=== PATIENT | male | born 1975 | race Caucasian/White ===

== ENCOUNTER 2017-01-10 22:00 | Emergency (ER) | payer MEDICARE, MEDICAID ==
[~2017-01-10] VITALS: Ht 167.6 cm; Wt 110.2 kg
[~2017-01-10 22:00] MED LIST: LIPI10TA; PRIL20CA
[2017-01-10] MEDS ORDERED: GLUCTAB6 PO (22:14)
[2017-01-10] MEDS ORDERED: TOPA25TA10 PO (22:14)
[2017-01-10] MEDS ORDERED: CHLO125TA PO (22:14)
[2017-01-10] MEDS ORDERED: LISI10TA4 PO (22:14)
[2017-01-10] MEDS ORDERED: POTA1TAB14 PO (22:14)
[2017-01-10] MEDS ORDERED: ASPI81TA13 PO (22:14)
[2017-01-10] MEDS ORDERED: DEXI60CA PO (22:14)
[2017-01-10] MEDS ORDERED: CALC600T21 PO (22:14)
[2017-01-10] MEDS ORDERED: RANI150T PO (22:14)
[2017-01-10] MEDS ORDERED: LIPI20TA PO (22:14)
[2017-01-10] MEDS ORDERED: SPIR25TA2 PO (22:14)
[2017-01-10] MEDS ORDERED: VITA2000 PO (22:14)
[2017-01-10] MEDS ORDERED: MORPHINE 4 MG/ML 1ML SYRINGE IV ONE (23:45)
[2017-01-11 01:03] LABS: BASO % 0.4 % (0.0-1.0); EOS # 0.2 K/mm3 (0.0-0.50); EOS % 1.5 % (0.0-3.0); LARGE UNSTAINED CELL # 0.2 K/mm3 (0.0-0.4); LARGE UNSTAINED CELL % 1.5 % (0.0-4.0); LYMPH # 2.2 K/mm3 (1.5-4.5); LYMPH % 18.5 % (24.0-44.0); MEAN CORPUSCULAR HEMOGLOBIN 29.9 pg (27.0-33.0); MEAN CORPUSCULAR HGB CONC 35.4 g/dl (32.0-36.5); MEAN CORPUSCULAR VOLUME 84.4 fl (80.0-96.0); MONO # 0.7 K/mm3 (0.0-0.8); NEUTROPHILS # 8.4 K/mm3 (1.8-7.7); NEUTROPHILS % 72.2 % (36.0-66.0); PLATELET COUNT, AUTOMATED 216 k/mm3 (150-450); WHITE BLOOD COUNT 11.7 K/mm3 (4.0-10.0)
[2017-01-11 01:27] LABS: ANION GAP 9 MEQ/L (8-16); BLOOD UREA NITROGEN 15 MG/DL (7-18); CALCIUM LEVEL 8.5 MG/DL (8.5-10.1); CARBON DIOXIDE LEVEL 26 MEQ/L (21-32); CHLORIDE LEVEL 101 MEQ/L (98-107); CREATININE FOR GFR 0.95 MG/DL (0.70-1.30); GLOMERULAR FILTRATION RATE > 60.0 (>60); GLUCOSE, FASTING 138 MG/DL (70-105); POTASSIUM SERUM 3.5 MEQ/L (3.5-5.1); SODIUM LEVEL 136 MEQ/L (136-145)
[2017-01-11] MEDS ORDERED: PERC5TAB6 PO (02:00)
[2017-01-11 02:16] VITALS: BP 119/59
--- NOTE | 2017-01-11 09:20 | REP ---
Back pain. COMPARISON: 03/12/2015 FINDINGS: Five views of the lumbosacral spine show no acute fracture, dislocation or subluxation. The intervertebral disc spaces are symmetric and well maintained. There is no spondylolisthesis. The pedicles are intact bilaterally and there is no destructive osseous lesions. IMPRESSION: Unremarkable lumbosacral spine series. Signed by Saqib Foster DO 01/11/2017 09:26 A
== END 2017-01-11 02:20 | disposition home or self-care (01) ==
LOC: M ED 23:15
DX: M54.5 Low back pain (principal); I10 Essential (primary) hypertension; Z79.899 Other long term (current) drug therapy; Z79.82 Long term (current) use of aspirin; Z88.0 Allergy status to penicillin; Z91.018 Allergy to other foods

== ENCOUNTER → 2017-02-13 | Outpatient (CLI) | payer MEDICARE, MEDICAID ==
[~2017-02-13] MED LIST changes: +ASPI81TA13 PO; +CALC600T21 PO; +CHLO125TA PO; +DEXI60CA PO; +GLUCTAB6 PO; +LIPI20TA PO; +LISI10TA4 PO; +PERC5TAB6 PO; +POTA1TAB14 PO; +RANI150T PO; +SPIR25TA2 PO; +TOPA25TA10 PO; +VITA2000 PO
[2017-02-13 06:39] LABS: MEAN CORPUSCULAR HEMOGLOBIN 30.7 pg (27.0-33.0); MEAN CORPUSCULAR HGB CONC 34.7 g/dl (32.0-36.5); MEAN CORPUSCULAR VOLUME 88.6 fl (80.0-96.0); WHITE BLOOD COUNT 7.2 K/mm3 (4.0-10.0)
[2017-02-13 07:03] LABS: ALBUMIN 3.9 GM/DL (3.2-5.2); ALBUMIN/GLOBULIN RATIO 1.26 (1.00-1.93); ALKALINE PHOSPHATASE 107 U/L (45-117); ALT/SGPT 114 U/L (12-78); ANION GAP 7 MEQ/L (8-16); AST/SGOT 41 U/L (15-37); BILIRUBIN,TOTAL 1.1 MG/DL (0.2-1.0); BLOOD UREA NITROGEN 12 MG/DL (7-18); CALCIUM LEVEL 8.4 MG/DL (8.5-10.1); CARBON DIOXIDE LEVEL 29 MEQ/L (21-32); CHLORIDE LEVEL 106 MEQ/L (98-107); CHOLESTEROL LEVEL 150 MG/DL (<200); CREATININE FOR GFR 1.14 MG/DL (0.70-1.30); GLOMERULAR FILTRATION RATE > 60.0 (>60); GLUCOSE, FASTING 106 MG/DL (70-105); POTASSIUM SERUM 3.7 MEQ/L (3.5-5.1); SODIUM LEVEL 142 MEQ/L (136-145); TRIGLYCERIDES LEVEL 165 MG/DL (<150)
== END ==
LOC: M LAB 06:20
PROVIDERS: ATTEND Physician Assistant
DX: I10 Essential (primary) hypertension (principal); E78.2 Mixed hyperlipidemia; S39.012D Strain of muscle, fascia and tendon of lower back, subsequent encounter; X58.XXXD Exposure to other specified factors, subsequent encounter; Y92.89 Other specified places as the place of occurrence of the external cause; Y93.89 Activity, other specified; Y99.8 Other external cause status

== ENCOUNTER → 2017-03-30 | Outpatient (CLI) | payer MEDICARE, MEDICAID ==
[~2017-03-30] MED LIST changes: -ASPI81TA13 PO; +ASPI81TA24 PO; -CALC600T21 PO; +CALC600T60 PO; +CALCTAB68 PO; +CIPR500T3 PO; -DEXI60CA PO; +DEXI60CA2 PO; +FLOM5CAP PO; +NAPR500T3 PO; +PERC5TAB12 PO; -PERC5TAB6 PO; +PROB1TAB PO; +PYRI1TAB5 PO; +SULF1TAB23 PO; +TOPA1TAB PO; -TOPA25TA10 PO; +VOLT1GEL15 TOP; +ZANTTAB PO
--- NOTE | 2017-03-30 13:38 | REP ---
Clinical: Right hip pain. Technique: Neutral and frog lateral views of the right hip. Comparison: 10/29/2007. Findings: Mild degenerative changes include minimal joint space narrowing, increased sclerosis to the acetabular roof with subtle marginal spurring. No acute fracture dislocation. Impression: Mild degenerative changes cannot be excluded. Signed by Pedrito Martinez MD 03/30/2017 01:29 P
== END ==
LOC: M RAD 13:08
PROVIDERS: ATTEND Family Medicine
DX: M25.551 Pain in right hip (principal)
CPT/HCPCS: 73502; G0463

== ENCOUNTER → 2017-04-13 | Outpatient (REF) | payer MEDICARE, MEDICAID | LOC: M SFHCADAM 12:38 | PROVIDERS: ATTEND Physician Assistant Medical | DX: R31.0 Gross hematuria (principal) | CPT/HCPCS: 81001; 81002; 87086; G0463 ==

== ENCOUNTER 2017-04-21 13:33 | Inpatient (IN) | payer MEDICARE, MEDICAID ==
[~2017-04-21] VITALS: Ht 167.6 cm; Wt 111.8 kg
[~2017-04-21 13:33] MED LIST changes: -CALCTAB68 PO; -CIPR500T3 PO; -FLOM5CAP PO; -NAPR500T3 PO; -PROB1TAB PO; -PYRI1TAB5 PO; -SULF1TAB23 PO; -VOLT1GEL15 TOP; -ZANTTAB PO
[2017-04-21 15:24] LABS: BASO % 0.5 % (0.0-1.0); EOS # 0.2 K/mm3 (0.0-0.50); EOS % 1.8 % (0.0-3.0); LARGE UNSTAINED CELL # 0.2 K/mm3 (0.0-0.4); LARGE UNSTAINED CELL % 1.8 % (0.0-4.0); LYMPH # 2.7 K/mm3 (1.5-4.5); MEAN CORPUSCULAR HEMOGLOBIN 30.2 pg (27.0-33.0); MEAN CORPUSCULAR HGB CONC 35.4 g/dl (32.0-36.5); MEAN CORPUSCULAR VOLUME 85.4 fl (80.0-96.0); MONO # 0.7 K/mm3 (0.0-0.8); MONO % 8.4 % (0.0-5.0); NEUTROPHILS # 4.8 K/mm3 (1.8-7.7); NEUTROPHILS % 57.4 % (36.0-66.0); PLATELET COUNT, AUTOMATED 216 k/mm3 (150-450); WHITE BLOOD COUNT 8.4 K/mm3 (4.0-10.0)
[2017-04-21 15:44] LABS: AMYLASE 31 U/L (25-115)
[2017-04-21 15:45] VITALS: BP 160/87
[2017-04-21 15:52] LABS: ALBUMIN 4.2 GM/DL (3.2-5.2); ALKALINE PHOSPHATASE 112 U/L (45-117); ALT/SGPT 110 U/L (12-78); ANION GAP 7 MEQ/L (8-16); AST/SGOT 45 U/L (15-37); BILIRUBIN,TOTAL 1.2 MG/DL (0.2-1.0); BLOOD UREA NITROGEN 10 MG/DL (7-18); CALCIUM LEVEL 9.1 MG/DL (8.5-10.1); CARBON DIOXIDE LEVEL 26 MEQ/L (21-32); CHLORIDE LEVEL 100 MEQ/L (98-107); CREATININE FOR GFR 0.86 MG/DL (0.70-1.30); GLOMERULAR FILTRATION RATE > 60.0 (>60); GLUCOSE, FASTING 89 MG/DL (70-105); POTASSIUM SERUM 3.4 MEQ/L (3.5-5.1); SODIUM LEVEL 133 MEQ/L (136-145)
[2017-04-21] MEDS ORDERED: NAPR500T3 PO (16:05)
[2017-04-21] MEDS ORDERED: CALCTAB68 PO (16:05)
[2017-04-21] MEDS ORDERED: CIPR500T3 PO (16:05)
[2017-04-21] MEDS ORDERED: GLUCTAB6 PO (16:05)
[2017-04-21] MEDS ORDERED: VOLT1GEL15 TOP (16:05)
[2017-04-21] MEDS ORDERED: FLOM5CAP PO (16:05)
[2017-04-21] MEDS ORDERED: PROB1TAB PO (16:05)
[2017-04-21] MEDS: KCL 20MEQ in NS 1000ML 1,000 ML IV SCH ×3 (17:34→23:50)
[2017-04-21] MEDS: LACTOBACILLUS ACIDOPHILUS CAP (BACID) PO SCH (17:34)
[2017-04-21] MEDS: CIPROFLOXACIN 400 MG in APPROPRIATE DILUENT 1 EA IV SCH (17:34)
[2017-04-21] MEDS: NORCO, ANEXSIA 5/325MG TABLET (HYDROcodone/ACETAMINOPHEN) PO PRN (19:05)
[2017-04-21 20:00] VITALS: BP 133/61
[2017-04-21] MEDS: TAMSULOSIN 0.4 MG CAP PO SCH (22:25)
[2017-04-21] MEDS: TOPIRAMATE (TopAMAX) 25 MG TAB PO SCH (22:25)
[2017-04-21] MEDS: POTASSIUM CHLORIDE 10 MEQ SR TABLET PO SCH (22:25)
[2017-04-22] VITALS: BP 123/61
[2017-04-22 04:00] VITALS: BP 123/58
[2017-04-22] MEDS: CIPROFLOXACIN 400 MG in APPROPRIATE DILUENT 1 EA IV SCH ×2 (06:00→17:28)
[2017-04-22] MEDS: KCL 20MEQ in NS 1000ML 1,000 ML IV SCH ×3 (06:00→20:43)
[2017-04-22 06:52] LABS: BASO % 0.3 % (0.0-1.0); EOS # 0.2 K/mm3 (0.0-0.50); EOS % 2.7 % (0.0-3.0); LARGE UNSTAINED CELL # 0.1 K/mm3 (0.0-0.4); LARGE UNSTAINED CELL % 2.1 % (0.0-4.0); LYMPH # 2.3 K/mm3 (1.5-4.5); LYMPH % 36.2 % (24.0-44.0); MEAN CORPUSCULAR HGB CONC 34.5 g/dl (32.0-36.5); MEAN CORPUSCULAR VOLUME 86.9 fl (80.0-96.0); MONO # 0.5 K/mm3 (0.0-0.8); MONO % 7.8 % (0.0-5.0); NEUTROPHILS # 3.1 K/mm3 (1.8-7.7); NEUTROPHILS % 50.9 % (36.0-66.0); PLATELET COUNT, AUTOMATED 186 k/mm3 (150-450); RED CELL DISTRIBUTION WIDTH 13.1 % (11.5-14.5)
[2017-04-22 07:04] LABS: ANION GAP 7 MEQ/L (8-16); BLOOD UREA NITROGEN 13 MG/DL (7-18); CALCIUM LEVEL 8.2 MG/DL (8.5-10.1); CARBON DIOXIDE LEVEL 25 MEQ/L (21-32); CHLORIDE LEVEL 105 MEQ/L (98-107); CREATININE FOR GFR 0.93 MG/DL (0.70-1.30); GLOMERULAR FILTRATION RATE > 60.0 (>60); GLUCOSE, FASTING 112 MG/DL (70-105); POTASSIUM SERUM 3.6 MEQ/L (3.5-5.1); SODIUM LEVEL 137 MEQ/L (136-145)
[2017-04-22 08:00] VITALS: BP 138/65
[2017-04-22] MEDS: TOPIRAMATE (TopAMAX) 25 MG TAB PO SCH ×2 (08:32→21:31)
[2017-04-22] MEDS: PANTOPRAZOLE 40MG TAB (PROTONIX) PO SCH (08:32)
[2017-04-22] MEDS: POTASSIUM CHLORIDE 10 MEQ SR TABLET PO SCH ×2 (08:32→21:31)
[2017-04-22] MEDS: LACTOBACILLUS ACIDOPHILUS CAP (BACID) PO SCH ×3 (08:32→17:28)
[2017-04-22] MEDS: ENOXAPARIN 40 MG/0.4 ML SYRINGE (J1650) SC SCH (08:35)
--- NOTE | 2017-04-22 09:05 | REP ---
CT ABDOMEN AND PELVIS WITHOUT IV CONTRAST: CT abdomen and pelvis is performed without oral or IV contrast. Sagittal and coronal reconstruction images are performed. In the visualized lung bases, there is a tiny calcific granuloma both on the right and on the left. There is diffuse fatty infiltration of the liver with no other gross hepatic abnormality. The spleen is normal in size with no definite abnormality. There is a small hiatal hernia. The adrenals, pancreas and kidneys are grossly unremarkable. There is no renal or ureteral calculus and no hydroureteronephrosis. There is no abdominal aortic aneurysm. There is no adenopathy. There is no free air or free fluid. There is no bowel wall thickening. No pelvic mass is seen. The urinary bladder appears unremarkable. IMPRESSION: Small hiatal hernia. Diffuse fatty infiltration of the liver. Calcified granuloma seen in each lung base. No acute abnormalities are seen. Signed by Obinna Wren MD 04/23/2017 05:48 P
--- NOTE | 2017-04-22 10:20 | IPNPDOC ---
Subjective Date Seen The patient was seen on 04/22/17. Subjective Chief Complaint/HPI The patient is a 41-year-old male admitted with a reason for visit of Acute Prostatitis, Failed Outpatient Treatment. Events since last encounter Reports pressure in suprapubic area. No f/c, n/v Constitutional: Denies: Chills, Fever Pulmonary: Denies: Dyspnea, Cough Cardiovascular: Denies: Chest Pain, Palpitations Gastrointestinal: Reports: Abdominal Pain (suprpubic pressure), Constipation ( NO BM x 2 days), Denies: Nausea, Vomiting, Diarrhea Genitourinary: Reports: Dysuria Objective Physical Examination General Exam: Positive: Alert, No Acute Distress Chest Exam: Positive: Clear to auscultation, Normal air movement Heart Exam: Positive: Rate Normal, Regular Rhythm, Negative: Murmurs Abdomen Exam: Positive: Normal bowel sounds, Soft, Tenderness (slight tenderenss suprapubic region without guard or rebound) Male Exam: Negative: Edema Assessment /Plan Problems (1) Acute prostatitis Status: Acute Response to Treatment: Stable Problem Text: Continue IV Cipro. PVR bladder scan ordered Cont. IVF Continue Flomax Add bowel care as well. Plan/VTE VTE Prophylaxis Ordered?: Yes (Lovenox) VS, I&O, 24H, Fishbone Vital Signs/I&O Vital Signs Date Time Temp Pulse Resp B/P (MAP) Pulse Ox O2 Delivery O2 Flow Rate FiO2 04/22/17 08:00 98.7 84 18 138/65 (89) 95 Room Air I&O- Last 24 Hours up to 6 AM 04/22/17 06:00 Intake Total 1510 ml Output Total 2050 ml Balance -540 ml Laboratory Data 24H LABS Laboratory Tests 2 04/21/17 15:11: White Blood Count 8.4, Red Blood Count 4.99, Hemoglobin 15.1, Hematocrit 42.6, Mean Corpuscular Volume 85.4, Mean Corpuscular Hemoglobin 30.2, Mean Corpuscular Hemoglobin Concent 35.4, Red Cell Distribution Width 13.0, Platelet Count 216, Neutrophils (%) (Auto) 57.4, Lymphocytes (%) (Auto) 30.0, Monocytes ( %) (Auto) 8.4H, Eosinophils (%) (Auto) 1.8, Basophils (%) (Auto) 0.5, Neutrophils # (Auto) 4.8, Lymphocytes # (Auto) 2.7, Monocytes # (Auto) 0.7, Eosinophils # (Auto) 0.2, Basophils # (Auto) 0.0, Large Unclassified Cells % 1.8 , Large Unclassified Cells # 0.2, Anion Gap 7L, Glomerular Filtration Rate > 60.0, Blood Urea Nitrogen 10, Creatinine 0.86, Sodium Level 133L, Potassium Level 3.4L, Chloride Level 100, Carbon Dioxide Level 26, Calcium Level 9.1, Aspartate Amino Transf (AST/SGOT) 45H, Alanine Aminotransferase (ALT/SGPT) 110H , Alkaline Phosphatase 112, Total Bilirubin 1.2H, Total Protein 7.0, Albumin 4.2 , Albumin/Globulin Ratio 1.50, Amylase Level 31, Lipase 100 04/22/17 06:42: White Blood Count 6.0, Red Blood Count 4.54, Hemoglobin 13.6L, Hematocrit 39.5L , Mean Corpuscular Volume 86.9, Mean Corpuscular Hemoglobin 30.0, Mean Corpuscular Hemoglobin Concent 34.5, Red Cell Distribution Width 13.1, Platelet Count 186, Neutrophils (%) (Auto) 50.9, Lymphocytes (%) (Auto) 36.2, Monocytes ( %) (Auto) 7.8H, Eosinophils (%) (Auto) 2.7, Basophils (%) (Auto) 0.3, Neutrophils # (Auto) 3.1, Lymphocytes # (Auto) 2.3, Monocytes # (Auto) 0.5, Eosinophils # (Auto) 0.2, Basophils # (Auto) 0.0, Large Unclassified Cells % 2.1 , Large Unclassified Cells # 0.1, Anion Gap 7L, Glomerular Filtration Rate > 60.0, Blood Urea Nitrogen 13, Creatinine 0.93, Sodium Level 137, Potassium Level 3.6, Chloride Level 105, Carbon Dioxide Level 25, Calcium Level 8.2L CBC/BMP Laboratory Tests 04/21/17 15:11 Red Blood Count 4.99, Mean Corpuscular Volume 85.4, Mean Corpuscular Hemoglobin 30.2, Mean Corpuscular Hemoglobin Concent 35.4, Red Cell Distribution Width 13.0 , Neutrophils (%) (Auto) 57.4, Lymphocytes (%) (Auto) 30.0, Monocytes (%) (Auto ) 8.4 H, Eosinophils (%) (Auto) 1.8, Basophils (%) (Auto) 0.5, Neutrophils # ( Auto) 4.8, Lymphocytes # (Auto) 2.7, Monocytes # (Auto) 0.7, Eosinophils # (Auto ) 0.2, Basophils # (Auto) 0.0, Calcium Level 9.1, Aspartate Amino Transf (AST/ SGOT) 45 H, Alanine Aminotransferase (ALT/SGPT) 110 H, Alkaline Phosphatase 112 , Total Bilirubin 1.2 H, Total Protein 7.0, Albumin 4.2 04/22/17 06:42 Red Blood Count 4.54, Mean Corpuscular Volume 86.9, Mean Corpuscular Hemoglobin 30.0, Mean Corpuscular Hemoglobin Concent 34.5, Red Cell Distribution Width 13.1 , Neutrophils (%) (Auto) 50.9, Lymphocytes (%) (Auto) 36.2, Monocytes (%) (Auto ) 7.8 H, Eosinophils (%) (Auto) 2.7, Basophils (%) (Auto) 0.3, Neutrophils # ( Auto) 3.1, Lymphocytes # (Auto) 2.3, Monocytes # (Auto) 0.5, Eosinophils # (Auto ) 0.2, Basophils # (Auto) 0.0, Calcium Level 8.2 L Microbiology Microbiology 04/21/17 Blood Culture, Received Pending 04/21/17 Blood Culture, Received Pending Attending Note Attending Note Not improved yet. He had been on cipro for a week and a half as outpatient. If not improving by tomorrow suggest abx change. JAMIE CONROY PA-C Apr 22, 2017 10:20 Juan Luis Cornejo MD Apr 22, 2017 13:03
[2017-04-22] MEDS: MOM 30ML SUSPENSION UDC PO SCH (10:45)
[2017-04-22] MEDS: MIRALAX *UNIT DOSE* 17GM PACKET PO SCH (10:46)
[2017-04-22] MEDS: NORCO, ANEXSIA 5/325MG TABLET (HYDROcodone/ACETAMINOPHEN) PO PRN ×2 (10:49→19:01)
[2017-04-22 12:00] VITALS: BP 147/76
[2017-04-22] MEDS: PHENAZOPYRIDINE 100 MG TAB PO SCH ×2 (13:45→21:31)
[2017-04-22 16:00] VITALS: BP 140/79
[2017-04-22 20:00] VITALS: BP 148/79
[2017-04-22] MEDS: TAMSULOSIN 0.4 MG CAP PO SCH (21:31)
[2017-04-23] VITALS (7 sets, daily range): BP systolic 127–162; BP diastolic 63–95
[2017-04-23] MEDS: PHENAZOPYRIDINE 100 MG TAB PO SCH ×3 (06:44→21:53)
[2017-04-23] MEDS: CIPROFLOXACIN 400 MG in APPROPRIATE DILUENT 1 EA IV SCH (06:44)
[2017-04-23 06:45] LABS: BASO % 0.4 % (0.0-1.0); EOS # 0.2 K/mm3 (0.0-0.50); EOS % 2.7 % (0.0-3.0); LARGE UNSTAINED CELL # 0.1 K/mm3 (0.0-0.4); LARGE UNSTAINED CELL % 1.8 % (0.0-4.0); LYMPH # 2.4 K/mm3 (1.5-4.5); LYMPH % 38.6 % (24.0-44.0); MEAN CORPUSCULAR HEMOGLOBIN 30.1 pg (27.0-33.0); MEAN CORPUSCULAR HGB CONC 34.8 g/dl (32.0-36.5); MEAN CORPUSCULAR VOLUME 86.5 fl (80.0-96.0); MONO # 0.4 K/mm3 (0.0-0.8); NEUTROPHILS % 49.4 % (36.0-66.0); PLATELET COUNT, AUTOMATED 165 k/mm3 (150-450); RED CELL DISTRIBUTION WIDTH 13.1 % (11.5-14.5)
[2017-04-23 07:19] LABS: ANION GAP 8 MEQ/L (8-16); BLOOD UREA NITROGEN 10 MG/DL (7-18); CARBON DIOXIDE LEVEL 23 MEQ/L (21-32); CHLORIDE LEVEL 107 MEQ/L (98-107); GLOMERULAR FILTRATION RATE > 60.0 (>60); GLUCOSE, FASTING 103 MG/DL (70-105); POTASSIUM SERUM 3.9 MEQ/L (3.5-5.1); SODIUM LEVEL 138 MEQ/L (136-145)
[2017-04-23] MEDS: LACTOBACILLUS ACIDOPHILUS CAP (BACID) PO SCH ×3 (08:53→17:50)
[2017-04-23] MEDS: PANTOPRAZOLE 40MG TAB (PROTONIX) PO SCH (08:53)
[2017-04-23] MEDS: MIRALAX *UNIT DOSE* 17GM PACKET PO SCH (08:54)
[2017-04-23] MEDS: POTASSIUM CHLORIDE 10 MEQ SR TABLET PO SCH ×2 (08:54→20:13)
[2017-04-23] MEDS: ENOXAPARIN 40 MG/0.4 ML SYRINGE (J1650) SC SCH (08:54)
[2017-04-23] MEDS: TOPIRAMATE (TopAMAX) 25 MG TAB PO SCH ×2 (08:54→20:13)
[2017-04-23] MEDS: MOM 30ML SUSPENSION UDC PO SCH (08:54)
[2017-04-23] MEDS: KCL 20MEQ in NS 1000ML 1,000 ML IV SCH (08:57)
--- NOTE | 2017-04-23 09:21 | IPNPDOC ---
Subjective Date Seen The patient was seen on 04/23/17. Subjective Chief Complaint/HPI The patient is a 41-year-old male admitted with a reason for visit of Acute Prostatitis, Failed Outpatient Treatment. Events since last encounter less dysuria. less suprapubic pressure today. + normal BM yesterday ad today Constitutional: Denies: Chills, Fever Pulmonary: Denies: Dyspnea, Cough Cardiovascular: Denies: Chest Pain, Palpitations Gastrointestinal: Denies: Nausea, Vomiting, Abdominal Pain, Diarrhea, Constipation Genitourinary: Reports: Dysuria (improving) Objective Physical Examination General Exam: Positive: Alert, No Acute Distress Chest Exam: Positive: Clear to auscultation, Normal air movement Heart Exam: Positive: Rate Normal, Regular Rhythm, Negative: Murmurs Abdomen Exam: Positive: Normal bowel sounds, Soft, Negative: Tenderness Male Exam: Negative: Edema Assessment /Plan Problems (1) Acute prostatitis Status: Acute Response to Treatment: Stable Problem Text: symptoms are better with respect to bladder and urethral symptoms , but still with a lot of pain with defecation (compression of prostate) so c/w inadequate response to cipro. needs antibiotic change. will change to flagyl plus meropenem plus po azithromycin. discussed cross reaction risk with patient. Continue IV Cipro. SLow response to this. May want to consider alternative, but has allergy to PCN. (I will try to discuss case with ID today) PVR bladder scan ordered - no PVR yesterday Cont. IVF Continue Flomax Cont. Pyridium Plan/VTE VTE Prophylaxis Ordered?: Yes (Lovenox) Plan Medications: Other Med: VS, I&O, 24H, Fishbone Vital Signs/I&O Vital Signs Date Time Temp Pulse Resp B/P (MAP) Pulse Ox O2 Delivery O2 Flow Rate FiO2 04/23/17 04:00 98.3 69 20 141/76 (97) 98 NIPPV (BIPAP/CPAP) I&O- Last 24 Hours up to 6 AM 04/23/17 06:00 Intake Total 4400 ml Output Total 4350 ml Balance 50 ml Laboratory Data 24H LABS Laboratory Tests 2 04/23/17 06:29: White Blood Count 6.0, Red Blood Count 4.31, Hemoglobin 13.0L, Hematocrit 37.3L , Mean Corpuscular Volume 86.5, Mean Corpuscular Hemoglobin 30.1, Mean Corpuscular Hemoglobin Concent 34.8, Red Cell Distribution Width 13.1, Platelet Count 165, Neutrophils (%) (Auto) 49.4, Lymphocytes (%) (Auto) 38.6, Monocytes ( %) (Auto) 7.0H, Eosinophils (%) (Auto) 2.7, Basophils (%) (Auto) 0.4, Neutrophils # (Auto) 3.0, Lymphocytes # (Auto) 2.4, Monocytes # (Auto) 0.4, Eosinophils # (Auto) 0.2, Basophils # (Auto) 0.0, Large Unclassified Cells % 1.8 , Large Unclassified Cells # 0.1, Anion Gap 8, Glomerular Filtration Rate > 60.0 , Blood Urea Nitrogen 10, Creatinine 0.80, Sodium Level 138, Potassium Level 3.9 , Chloride Level 107, Carbon Dioxide Level 23, Calcium Level 8.0L CBC/BMP Laboratory Tests 04/23/17 06:29 Red Blood Count 4.31, Mean Corpuscular Volume 86.5, Mean Corpuscular Hemoglobin 30.1, Mean Corpuscular Hemoglobin Concent 34.8, Red Cell Distribution Width 13.1 , Neutrophils (%) (Auto) 49.4, Lymphocytes (%) (Auto) 38.6, Monocytes (%) (Auto ) 7.0 H, Eosinophils (%) (Auto) 2.7, Basophils (%) (Auto) 0.4, Neutrophils # ( Auto) 3.0, Lymphocytes # (Auto) 2.4, Monocytes # (Auto) 0.4, Eosinophils # (Auto ) 0.2, Basophils # (Auto) 0.0, Calcium Level 8.0 L Microbiology Microbiology 04/21/17 Blood Culture - Preliminary, Resulted No growth after 24 hours . All specim... 04/21/17 Blood Culture - Preliminary, Resulted No growth after 24 hours . All specim... Attending Note Attending Note see antibiotic change discussion above. JAMIE CONROY PA-C Apr 23, 2017 09:21 Juan Luis Cornejo MD Apr 23, 2017 15:08
[2017-04-23] MEDS ORDERED: diphenhydrAMINE INJ 50MG/ML VIAL (J1200) IV ONE (15:30)
[2017-04-23] MEDS: MEROPENEM INJ 1 GM in D5W MINI-BAG PLUS 100 ML IV SCH ×2 (15:48→23:53)
[2017-04-23] MEDS: metroNIDAZOLE 500 MG in APPROPRIATE DILUENT 1 EA IV SCH (16:52)
[2017-04-23] MEDS: DOXYCYCLINE HYCLATE 100 MG TAB PO SCH (20:13)
[2017-04-23] MEDS: NORCO, ANEXSIA 5/325MG TABLET (HYDROcodone/ACETAMINOPHEN) PO PRN (20:14)
[2017-04-23] MEDS: TAMSULOSIN 0.4 MG CAP PO SCH (20:16)
[2017-04-24] VITALS: BP 141/80
[2017-04-24] MEDS: metroNIDAZOLE 500 MG in APPROPRIATE DILUENT 1 EA IV SCH ×3 (00:52→17:07)
[2017-04-24 04:15] VITALS: BP 133/65
[2017-04-24] MEDS: PHENAZOPYRIDINE 100 MG TAB PO SCH (06:47)
[2017-04-24 07:28] LABS: BASO % 0.3 % (0.0-1.0); EOS # 0.2 K/mm3 (0.0-0.50); EOS % 3.3 % (0.0-3.0); LARGE UNSTAINED CELL # 0.1 K/mm3 (0.0-0.4); LARGE UNSTAINED CELL % 1.7 % (0.0-4.0); LYMPH # 2.1 K/mm3 (1.5-4.5); LYMPH % 35.9 % (24.0-44.0); MEAN CORPUSCULAR HGB CONC 34.5 g/dl (32.0-36.5); MEAN CORPUSCULAR VOLUME 86.9 fl (80.0-96.0); MONO # 0.4 K/mm3 (0.0-0.8); MONO % 6.4 % (0.0-5.0); NEUTROPHILS % 52.3 % (36.0-66.0); PLATELET COUNT, AUTOMATED 189 k/mm3 (150-450); WHITE BLOOD COUNT 5.6 K/mm3 (4.0-10.0)
[2017-04-24 07:33] LABS: ANION GAP 9 MEQ/L (8-16); BLOOD UREA NITROGEN 11 MG/DL (7-18); CALCIUM LEVEL 8.8 MG/DL (8.5-10.1); CARBON DIOXIDE LEVEL 26 MEQ/L (21-32); CHLORIDE LEVEL 106 MEQ/L (98-107); CREATININE FOR GFR 0.99 MG/DL (0.70-1.30); GLOMERULAR FILTRATION RATE > 60.0 (>60); GLUCOSE, FASTING 102 MG/DL (70-105); POTASSIUM SERUM 3.9 MEQ/L (3.5-5.1); SODIUM LEVEL 141 MEQ/L (136-145)
[2017-04-24] MEDS: LACTOBACILLUS ACIDOPHILUS CAP (BACID) PO SCH ×3 (07:45→17:07)
[2017-04-24] MEDS: MEROPENEM INJ 1 GM in D5W MINI-BAG PLUS 100 ML IV SCH ×2 (07:46→16:07)
--- NOTE | 2017-04-24 08:36 | IPNPDOC ---
Subjective Date Seen The patient was seen on 04/24/17. Subjective Chief Complaint/HPI The patient is a 41-year-old male admitted with a reason for visit of Acute Prostatitis, Failed Outpatient Treatment. Events since last encounter No further suprapubic pressure or dysuria Constitutional: Denies: Chills, Fever Pulmonary: Denies: Dyspnea, Cough Cardiovascular: Denies: Chest Pain, Palpitations Gastrointestinal: Denies: Nausea, Vomiting, Abdominal Pain, Diarrhea, Constipation Genitourinary: Denies: Dysuria, Frequency Objective Physical Examination General Exam: Positive: Alert, No Acute Distress Chest Exam: Positive: Clear to auscultation, Normal air movement Heart Exam: Positive: Rate Normal, Regular Rhythm, Negative: Murmurs Abdomen Exam: Positive: Normal bowel sounds, Soft, Negative: Tenderness Male Exam: Negative: Edema Assessment /Plan Problems (1) Acute prostatitis Status: Acute Response to Treatment: Stable Problem Text: 04/24 - Symptoms improved. abx adjusted yesterday to include Meropenum and Doxy/Flagyl. Stop Pyridium today to see if symptoms return. Get urine NAAT for GC/Chlamydia to help sort out underlying etiology of recurrent prostatitis unresponsive to Cipro. IVF stopped yesterday Cont. Flomax Plan/VTE VTE Prophylaxis Ordered?: Yes (Lovenox) Plan Medications: Other Med: VS, I&O, 24H, Fishbone Vital Signs/I&O Vital Signs Date Time Temp Pulse Resp B/P (MAP) Pulse Ox O2 Delivery O2 Flow Rate FiO2 04/24/17 04:15 98.3 63 18 133/65 (87) 96 Room Air I&O- Last 24 Hours up to 6 AM 04/24/17 06:00 Intake Total 1560 ml Output Total 5450 ml Balance -3890 ml Laboratory Data 24H LABS Laboratory Tests 2 04/24/17 06:41: White Blood Count 5.6, Red Blood Count 4.60, Hemoglobin 13.8L, Hematocrit 40.0L , Mean Corpuscular Volume 86.9, Mean Corpuscular Hemoglobin 30.0, Mean Corpuscular Hemoglobin Concent 34.5, Red Cell Distribution Width 13.0, Platelet Count 189, Neutrophils (%) (Auto) 52.3, Lymphocytes (%) (Auto) 35.9, Monocytes ( %) (Auto) 6.4H, Eosinophils (%) (Auto) 3.3H, Basophils (%) (Auto) 0.3, Neutrophils # (Auto) 3.0, Lymphocytes # (Auto) 2.1, Monocytes # (Auto) 0.4, Eosinophils # (Auto) 0.2, Basophils # (Auto) 0.0, Large Unclassified Cells % 1.7 , Large Unclassified Cells # 0.1, Anion Gap 9, Glomerular Filtration Rate > 60.0 , Blood Urea Nitrogen 11, Creatinine 0.99, Sodium Level 141, Potassium Level 3.9 , Chloride Level 106, Carbon Dioxide Level 26, Calcium Level 8.8 CBC/BMP Laboratory Tests 04/24/17 06:41 Red Blood Count 4.60, Mean Corpuscular Volume 86.9, Mean Corpuscular Hemoglobin 30.0, Mean Corpuscular Hemoglobin Concent 34.5, Red Cell Distribution Width 13.0 , Neutrophils (%) (Auto) 52.3, Lymphocytes (%) (Auto) 35.9, Monocytes (%) (Auto ) 6.4 H, Eosinophils (%) (Auto) 3.3 H, Basophils (%) (Auto) 0.3, Neutrophils # ( Auto) 3.0, Lymphocytes # (Auto) 2.1, Monocytes # (Auto) 0.4, Eosinophils # (Auto ) 0.2, Basophils # (Auto) 0.0, Calcium Level 8.8 Microbiology Microbiology 04/21/17 Blood Culture - Preliminary, Resulted No Growth after 48 hours. All Specime... 04/21/17 Blood Culture - Preliminary, Resulted No Growth after 48 hours. All Specime... JAMIE CONROY PA-C Apr 24, 2017 08:36
[2017-04-24] MEDS: ENOXAPARIN 40 MG/0.4 ML SYRINGE (J1650) SC SCH (08:49)
[2017-04-24] MEDS: PANTOPRAZOLE 40MG TAB (PROTONIX) PO SCH (08:49)
[2017-04-24] MEDS: DOXYCYCLINE HYCLATE 100 MG TAB PO SCH ×2 (08:50→20:25)
[2017-04-24] MEDS: POTASSIUM CHLORIDE 10 MEQ SR TABLET PO SCH ×2 (08:50→20:24)
[2017-04-24] MEDS: MOM 30ML SUSPENSION UDC PO SCH (08:50)
[2017-04-24] MEDS: TOPIRAMATE (TopAMAX) 25 MG TAB PO SCH ×2 (08:50→20:24)
[2017-04-24] MEDS: MIRALAX *UNIT DOSE* 17GM PACKET PO SCH (08:50)
[2017-04-24 12:00] VITALS: BP 134/79
[2017-04-24 16:00] VITALS: BP 144/83
[2017-04-24 20:00] VITALS: BP 137/67
[2017-04-24] MEDS: TAMSULOSIN 0.4 MG CAP PO SCH (20:24)
[2017-04-24 23:49] VITALS: BP 140/73
[2017-04-25] MEDS: metroNIDAZOLE 500 MG in APPROPRIATE DILUENT 1 EA IV SCH ×2 (00:22→08:45)
[2017-04-25 03:47] VITALS: BP 106/56
[2017-04-25 06:28] LABS: BASO % 0.4 % (0.0-1.0); EOS # 0.2 K/mm3 (0.0-0.50); EOS % 3.2 % (0.0-3.0); LARGE UNSTAINED CELL # 0.1 K/mm3 (0.0-0.4); LARGE UNSTAINED CELL % 1.6 % (0.0-4.0); LYMPH % 29.9 % (24.0-44.0); MEAN CORPUSCULAR HEMOGLOBIN 30.1 pg (27.0-33.0); MEAN CORPUSCULAR HGB CONC 34.9 g/dl (32.0-36.5); MEAN CORPUSCULAR VOLUME 86.1 fl (80.0-96.0); MONO # 0.4 K/mm3 (0.0-0.8); MONO % 5.9 % (0.0-5.0); NEUTROPHILS # 3.8 K/mm3 (1.8-7.7); PLATELET COUNT, AUTOMATED 180 k/mm3 (150-450); RED CELL DISTRIBUTION WIDTH 13.1 % (11.5-14.5); WHITE BLOOD COUNT 6.4 K/mm3 (4.0-10.0)
[2017-04-25 06:47] LABS: ANION GAP 10 MEQ/L (8-16); BLOOD UREA NITROGEN 10 MG/DL (7-18); CALCIUM LEVEL 8.7 MG/DL (8.5-10.1); CARBON DIOXIDE LEVEL 25 MEQ/L (21-32); CHLORIDE LEVEL 105 MEQ/L (98-107); CREATININE FOR GFR 0.95 MG/DL (0.70-1.30); GLOMERULAR FILTRATION RATE > 60.0 (>60); GLUCOSE, FASTING 105 MG/DL (70-105); POTASSIUM SERUM 3.9 MEQ/L (3.5-5.1); SODIUM LEVEL 140 MEQ/L (136-145)
[2017-04-25] MEDS: LACTOBACILLUS ACIDOPHILUS CAP (BACID) PO SCH ×3 (07:47→17:38)
[2017-04-25] MEDS: MEROPENEM INJ 1 GM in D5W MINI-BAG PLUS 100 ML IV SCH ×3 (07:48)
[2017-04-25 08:15] VITALS: BP 158/76
[2017-04-25] MEDS: MIRALAX *UNIT DOSE* 17GM PACKET PO SCH (08:44)
[2017-04-25] MEDS: PANTOPRAZOLE 40MG TAB (PROTONIX) PO SCH (08:47)
[2017-04-25] MEDS: DOXYCYCLINE HYCLATE 100 MG TAB PO SCH (08:48)
[2017-04-25] MEDS: MOM 30ML SUSPENSION UDC PO SCH (08:48)
[2017-04-25] MEDS: POTASSIUM CHLORIDE 10 MEQ SR TABLET PO SCH ×2 (08:48→20:40)
[2017-04-25] MEDS: ENOXAPARIN 40 MG/0.4 ML SYRINGE (J1650) SC SCH (08:49)
[2017-04-25] MEDS: TOPIRAMATE (TopAMAX) 25 MG TAB PO SCH ×2 (08:54→20:40)
[2017-04-25 12:30] VITALS: BP 133/75
[2017-04-25] MEDS ORDERED: SLF 3 ML SYR IV PRN (15:30)
[2017-04-25 16:34] VITALS: BP 133/76
[2017-04-25 20:00] VITALS: BP 135/65
[2017-04-25] MEDS: BACTRIM 160MG/800MG DS TAB PO SCH (20:40)
[2017-04-25] MEDS: TAMSULOSIN 0.4 MG CAP PO SCH (20:40)
[2017-04-25] MEDS: SLF 3 ML SYR IV SCH (20:41)
[2017-04-25 23:51] VITALS: BP 135/75
--- NOTE | 2017-04-26 02:12 | IPNPDOC ---
Subjective Date Seen The patient was seen on 04/25/17. Subjective Chief Complaint/HPI The patient is a 41-year-old male admitted with a reason for visit of Acute Prostatitis, Failed Outpatient Treatment. Events since last encounter He states symptoms are much improved. Stools have been loose. He states that unless he is urinating and moving his bowels simultaneously, it is no longer painful. He doesn't like his diet in the hospital. Constitutional: Denies: Chills, Fever Skin: Denies: Rash Pulmonary: Denies: Dyspnea, Cough Cardiovascular: Denies: Chest Pain, Palpitations Gastrointestinal: Denies: Nausea, Vomiting, Abdominal Pain, Constipation Genitourinary: Denies: Dysuria Objective Physical Examination General Exam: Positive: Alert, No Acute Distress Chest Exam: Positive: Clear to auscultation, Normal air movement Heart Exam: Positive: Rate Normal, Regular Rhythm, Negative: Murmurs Abdomen Exam: Positive: Normal bowel sounds, Soft, Negative: Tenderness Male Exam: Negative: Edema Extremity Exam: Positive: Edema (bilat LE, L>R) Assessment /Plan Problems (1) Acute prostatitis Status: Acute Response to Treatment: Stable Problem Text: 04/25 -- Patient is not sure if he has tried Bactrim before, but states if so it is not recently. Denies allergy. We will switch to Bactrim, and consider DC home tomorrow. 04/24 - Symptoms improved. abx adjusted yesterday to include Meropenum and Doxy/ Flagyl. Stop Pyridium today to see if symptoms return. Get urine NAAT for GC/ Chlamydia to help sort out underlying etiology of recurrent prostatitis unresponsive to Cipro. IVF stopped yesterday Cont. Flomax Plan/VTE VTE Prophylaxis Ordered?: Yes (Lovenox) Plan Medications: Other Med: VS, I&O, 24H, Fishbone Vital Signs/I&O Vital Signs Date Time Temp Pulse Resp B/P (MAP) Pulse Ox O2 Delivery O2 Flow Rate FiO2 04/26/17 00:00 BIPAP/CPAP 04/25/17 23:51 98.2 66 16 135/75 (95) 97 I&O- Last 24 Hours up to 6 AM 04/26/17 06:00 Intake Total 2300 ml Output Total 3350 ml Balance -1050 ml Laboratory Data 24H LABS Laboratory Tests 2 04/25/17 05:59: White Blood Count 6.4, Red Blood Count 4.52, Hemoglobin 13.6L, Hematocrit 39.0L , Mean Corpuscular Volume 86.1, Mean Corpuscular Hemoglobin 30.1, Mean Corpuscular Hemoglobin Concent 34.9, Red Cell Distribution Width 13.1, Platelet Count 180, Neutrophils (%) (Auto) 59.0, Lymphocytes (%) (Auto) 29.9, Monocytes ( %) (Auto) 5.9H, Eosinophils (%) (Auto) 3.2H, Basophils (%) (Auto) 0.4, Neutrophils # (Auto) 3.8, Lymphocytes # (Auto) 2.0, Monocytes # (Auto) 0.4, Eosinophils # (Auto) 0.2, Basophils # (Auto) 0.0, Large Unclassified Cells % 1.6 , Large Unclassified Cells # 0.1, Anion Gap 10, Glomerular Filtration Rate > 60.0, Blood Urea Nitrogen 10, Creatinine 0.95, Sodium Level 140, Potassium Level 3.9, Chloride Level 105, Carbon Dioxide Level 25, Calcium Level 8.7 CBC/BMP Laboratory Tests 04/25/17 05:59 Red Blood Count 4.52, Mean Corpuscular Volume 86.1, Mean Corpuscular Hemoglobin 30.1, Mean Corpuscular Hemoglobin Concent 34.9, Red Cell Distribution Width 13.1 , Neutrophils (%) (Auto) 59.0, Lymphocytes (%) (Auto) 29.9, Monocytes (%) (Auto ) 5.9 H, Eosinophils (%) (Auto) 3.2 H, Basophils (%) (Auto) 0.4, Neutrophils # ( Auto) 3.8, Lymphocytes # (Auto) 2.0, Monocytes # (Auto) 0.4, Eosinophils # (Auto ) 0.2, Basophils # (Auto) 0.0, Calcium Level 8.7 Microbiology Microbiology 04/21/17 Blood Culture - Preliminary, Resulted No Growth after 72 hours. All specime... 04/21/17 Blood Culture - Preliminary, Resulted No Growth after 72 hours. All specime... YESSENIA GARCIA DO Apr 26, 2017 02:12
[2017-04-26 04:00] VITALS: BP 135/78
[2017-04-26] MEDS: SLF 3 ML SYR IV SCH (05:28)
[2017-04-26 06:33] LABS: BASO % 0.4 % (0.0-1.0); EOS # 0.2 K/mm3 (0.0-0.50); EOS % 2.9 % (0.0-3.0); LARGE UNSTAINED CELL # 0.1 K/mm3 (0.0-0.4); LARGE UNSTAINED CELL % 1.6 % (0.0-4.0); LYMPH # 2.1 K/mm3 (1.5-4.5); LYMPH % 29.4 % (24.0-44.0); MEAN CORPUSCULAR HEMOGLOBIN 30.3 pg (27.0-33.0); MEAN CORPUSCULAR HGB CONC 34.9 g/dl (32.0-36.5); MEAN CORPUSCULAR VOLUME 86.9 fl (80.0-96.0); MONO # 0.4 K/mm3 (0.0-0.8); NEUTROPHILS # 4.1 K/mm3 (1.8-7.7); NEUTROPHILS % 59.8 % (36.0-66.0); PLATELET COUNT, AUTOMATED 210 k/mm3 (150-450); RED CELL DISTRIBUTION WIDTH 13.2 % (11.5-14.5); WHITE BLOOD COUNT 6.8 K/mm3 (4.0-10.0)
[2017-04-26 06:47] LABS: ANION GAP 10 MEQ/L (8-16); BLOOD UREA NITROGEN 11 MG/DL (7-18); CARBON DIOXIDE LEVEL 26 MEQ/L (21-32); CHLORIDE LEVEL 106 MEQ/L (98-107); GLOMERULAR FILTRATION RATE > 60.0 (>60); GLUCOSE, FASTING 123 MG/DL (70-105); POTASSIUM SERUM 3.7 MEQ/L (3.5-5.1); SODIUM LEVEL 142 MEQ/L (136-145)
[2017-04-26 08:00] VITALS: BP 134/76
[2017-04-26] MEDS: LACTOBACILLUS ACIDOPHILUS CAP (BACID) PO SCH (08:31)
[2017-04-26] MEDS: MOM 30ML SUSPENSION UDC PO SCH (09:00)
[2017-04-26] MEDS: MIRALAX *UNIT DOSE* 17GM PACKET PO SCH (09:00)
[2017-04-26] MEDS: BACTRIM 160MG/800MG DS TAB PO SCH (09:06)
[2017-04-26] MEDS: POTASSIUM CHLORIDE 10 MEQ SR TABLET PO SCH (09:06)
[2017-04-26] MEDS: PANTOPRAZOLE 40MG TAB (PROTONIX) PO SCH (09:06)
[2017-04-26] MEDS: TOPIRAMATE (TopAMAX) 25 MG TAB PO SCH (09:06)
[2017-04-26] MEDS: ENOXAPARIN 40 MG/0.4 ML SYRINGE (J1650) SC SCH (09:07)
[2017-04-26] MEDS ORDERED: SULF1TAB23 PO (11:30)
--- NOTE | 2017-05-13 00:04 | DS.PDOC ---
Discharge Summary General Date of Admission Apr 21, 2017 at 14:45 Date of Discharge 04/26/2017 Attending Physician: YESSENIA GARCIA DO Discharge Summary PROCEDURES PERFORMED DURING STAY: [None]. ADMITTING DIAGNOSES: 1. acute prostatitis 2. gastroenteritis DISCHARGE DIAGNOSES: 1.acute prostatitis, failing outpatient therapy COMPLICATIONS/CHIEF COMPLAINT: Acute Prostatitis, Failed Outpatient Treatment. HISTORY OF PRESENT ILLNESS: Patient was directly admitted to the hospital after failing outpatient treatment of prostatitis. He had been febrile and vomiting, unable to take his cipro. His previous bleeding had failed by admission, but he had dysuria. HOSPITAL COURSE: Patient was admitted to the hospital, and treated with initially cipro; then doxycycline and Flagyl, and then Bactrim. His symptoms did improve. He was able to tolerate food and drink, and was felt safe for hospital DC on 04/26, with urology and family medicine follow up. DISCHARGE MEDICATIONS: Please see below. ALLERGIES: Please see below. PHYSICAL EXAMINATION ON DISCHARGE: VITAL SIGNS: Please see below. GENERAL: no acute distress HEENT: MMM CARDIOVASCULAR EXAMINATION: regular rate and rhythm, no murmurs, rubs or gallops RESPIRATORY EXAMINATION: clear to auscultation bilaterally ABDOMINAL EXAMINATION: BS positive, soft nontender and nondistended EXTREMITIES: no edema SKIN: no rash LABORATORY DATA: Please see below. IMAGING: CT abdomen and pelvis 04/21 showed: Small hiatal hernia. Diffuse fatty infiltration of the liver. Calcified granuloma seen in each lung base. No acute abnormalities are seen. PROGNOSIS: good ACTIVITY: [As tolerated]. DIET: as tolerated DISCHARGE PLAN: home with urology follow up DISPOSITION: 01 Home, Self-Care. DISCHARGE INSTRUCTIONS: 1. take all medications as prescribed 2. seek urgent medical attention for worsening symptoms, fever, or inability to void 3. contact the office with any concerns or complaints DISCHARGE CONDITION: [Stable]. TIME SPENT ON DISCHARGE: Greater than 15 minutes. Discharge Medications Scheduled (Glucosamine Chondroitin) 1 Tab Tab, 1 TAB PO BID, (Reported) (Probiotic) 1 Tab Tab, 1 TAB PO BID, (Reported) (Dexilant) 60 Mg Cap, 60 MG PO DAILY, (Reported) Aspirin (Aspirin EC) 81 Mg Tab, 81 MG PO DAILY, (Reported) Atorvastatin Calcium (Lipitor) 20 Mg Tab, 40 MG PO DAILY, (Reported) Calcium/Vitamin D (Calcium 600 + D 600-400 mg-Unit) 1 Tab Tab, 1 TAB PO DAILY, ( Reported) Chlorthalidone (Chlorthalidone) 12.5 Mg Halftab, 12.5 MG PO DAILY, (Reported) Cholecalciferol (Vitamin D3) 2,000 Unit Cap, 2,000 UNIT PO DAILY, (Reported) Lisinopril (Lisinopril) 10 Mg Tab, 10 MG PO DAILY, (Reported) Phenazopyridine HCl (Pyridium) 200 Mg Tab, 200 MG PO Q8H Potassium Chloride (Potassium Chloride ER) 20 Meq Tab, 20 MEQ PO DAILY, ( Reported) Ranitidine Hcl (Zantac 150 Maximum Streng) 150 Mg Tab, 2 TAB PO BID, (Reported) Spironolactone (Spironolactone) 25 Mg Tab, 12.5 MG PO DAILY, (Reported) Tamsulosin Hydrochloride (Flomax) 0.4 Mg Cap, 0.4 MG PO DAILY, (Reported) Topiramate (Topamax) 25 Mg Tab, 25 MG PO BID, (Reported) Trimethoprim/Sulfamethoxazole (Smz-Tmp Ds 800-160 mg) 1 Tab Tab, 1 TAB PO BID Scheduled PRN (Voltaren) 1 % Gel, 1 DOSE TOP TID PRN for PAIN, (Reported) APPLY TO LOWER BACK Naproxen (Naproxen) 500 Mg Tab, 500 MG PO BID PRN for PAIN, (Reported) Allergies Coded Allergies: Penicillins (Verified Allergy, Severe, ITCHING, SWELLING BODY, 12/27/12) Penicillins Cross Reactors (Verified Allergy, Severe, ITCHING, SWELLING BODY, 12/27/12) Pineapple (Verified Allergy, Unknown, 01/10/17) Metoprolol (Unverified Adverse Reaction, Unknown, DROPS HEART RATE EXTREMELY LOW, 04/25/17) YESSENIA GARCIA DO May 13, 2017 00:04
== END 2017-04-26 13:00 | disposition home or self-care (01) | DRG 728 ==
LOC: M PED 14:45
PROVIDERS: ADMIT Family Medicine; ATTEND Family Medicine
DX: N41.0 Acute prostatitis (principal)

== ENCOUNTER → 2017-05-04 | Outpatient (CLI) | payer MEDICARE, MEDICAID ==
[~2017-05-04] MED LIST changes: +CALCTAB68 PO; +CIPR500T3 PO; +FLOM5CAP PO; +NAPR500T3 PO; +PROB1TAB PO; +PYRI1TAB5 PO; +SULF1TAB23 PO; +VOLT1GEL15 TOP; +ZANTTAB PO
[2017-05-04 14:07] LABS: MEAN CORPUSCULAR HEMOGLOBIN 30.9 pg (27.0-33.0); MEAN CORPUSCULAR HGB CONC 35.2 g/dl (32.0-36.5); MEAN CORPUSCULAR VOLUME 87.9 fl (80.0-96.0); RED CELL DISTRIBUTION WIDTH 12.7 % (11.5-14.5); WHITE BLOOD COUNT 7.7 K/mm3 (4.0-10.0)
[2017-05-04 14:41] LABS: ANION GAP 11 MEQ/L (8-16); BLOOD UREA NITROGEN 9 MG/DL (7-18); CALCIUM LEVEL 9.4 MG/DL (8.5-10.1); CARBON DIOXIDE LEVEL 25 MEQ/L (21-32); CHLORIDE LEVEL 100 MEQ/L (98-107); CREATININE FOR GFR 0.89 MG/DL (0.70-1.30); GLOMERULAR FILTRATION RATE > 60.0 (>60); GLUCOSE, FASTING 81 MG/DL (70-105); POTASSIUM SERUM 4.3 MEQ/L (3.5-5.1); SODIUM LEVEL 136 MEQ/L (136-145)
== END ==
LOC: M SMT 10:51
PROVIDERS: ATTEND Nurse Practitioner Women's Health
DX: N41.9 Inflammatory disease of prostate, unspecified (principal)
CPT/HCPCS: 36415; 80048; 85027; G0463

== ENCOUNTER → 2017-05-05 | Outpatient (CLI) | payer MEDICARE, MEDICAID ==
[~2017-05-05] MED LIST changes: +ISOVUE-370 76% 100ML VIAL (Q9967) As Ordered ONE
--- NOTE | 2017-05-05 10:14 | REP ---
CT of the abdomen pelvis without and with IV contrast. There is no bowel contrast. Comparison is 04/21/2017 without IV contrast. The visualized lung corea are unremarkable. Hepato steatosis is again identified, unchanged. The gallbladder, pancreas and spleen are unchanged unremarkable. The adrenals, kidneys and abdominal aorta are unchanged unremarkable. There is no hydronephrosis. The bowel and mesentery are unremarkable. There is no adenopathy. Pelvis: There is no ascites or adenopathy. There is a bladder catheter as an interval change. The bladder is incompletely distended. The pelvic bowel loops are unremarkable. The the patient indicates he has had appendectomy. Impression: There is a bladder catheter as an interval change. Hepato steatosis is again identified. There is no hydronephrosis. Otherwise, negative CT of the abdomen and pelvis. No other significant interval change. Signed by Obinna Germain MD 05/05/2017 10:06 A
== END ==
LOC: M RAD 09:00
PROVIDERS: ATTEND Nurse Practitioner Women's Health
DX: N41.0 Acute prostatitis (principal)
CPT/HCPCS: 74178; Q9967

== ENCOUNTER 2017-05-09 03:59 | Emergency (ER) | payer MEDICARE, MEDICAID ==
[~2017-05-09 03:59] MED LIST changes: -ISOVUE-370 76% 100ML VIAL (Q9967) As Ordered ONE; -PYRI1TAB5 PO; -ZANTTAB PO
[2017-05-09] MEDS ORDERED: ZANTTAB PO (04:19)
[2017-05-09] MEDS ORDERED: DEXI60CA2 PO (04:19)
[2017-05-09 07:18] LABS: BASO % 0.4 % (0.0-1.0); EOS # 0.2 K/mm3 (0.0-0.50); EOS % 2.9 % (0.0-3.0); LARGE UNSTAINED CELL # 0.2 K/mm3 (0.0-0.4); LYMPH # 2.3 K/mm3 (1.5-4.5); LYMPH % 29.2 % (24.0-44.0); MEAN CORPUSCULAR HEMOGLOBIN 30.1 pg (27.0-33.0); MEAN CORPUSCULAR HGB CONC 34.8 g/dl (32.0-36.5); MEAN CORPUSCULAR VOLUME 86.5 fl (80.0-96.0); MONO # 0.4 K/mm3 (0.0-0.8); MONO % 5.7 % (0.0-5.0); NEUTROPHILS # 4.5 K/mm3 (1.8-7.7); NEUTROPHILS % 59.9 % (36.0-66.0); PLATELET COUNT, AUTOMATED 227 k/mm3 (150-450); RED CELL DISTRIBUTION WIDTH 13.1 % (11.5-14.5); WHITE BLOOD COUNT 7.5 K/mm3 (4.0-10.0)
[2017-05-09 07:33] LABS: ANION GAP 11 MEQ/L (8-16); BLOOD UREA NITROGEN 12 MG/DL (7-18); CARBON DIOXIDE LEVEL 23 MEQ/L (21-32); CHLORIDE LEVEL 102 MEQ/L (98-107); CREATININE FOR GFR 1.01 MG/DL (0.70-1.30); GLOMERULAR FILTRATION RATE > 60.0 (>60); GLUCOSE, FASTING 111 MG/DL (70-105); POTASSIUM SERUM 3.8 MEQ/L (3.5-5.1); SODIUM LEVEL 136 MEQ/L (136-145)
[2017-05-09 08:00] VITALS: BP 129/68
[2017-05-09] MEDS ORDERED: PYRI1TAB5 PO (08:32)
[2017-05-09] MEDS ORDERED: PHENAZOPYRIDINE 100 MG TAB PO ONE (08:45)
== END 2017-05-09 08:48 | disposition home or self-care (01) ==
LOC: M ED 03:59
DX: N32.89 Other specified disorders of bladder (principal); T83.098A Other mechanical complication of other urinary catheter, initial encounter; Y92.9 Unspecified place or not applicable; Y93.9 Activity, unspecified; R51 Headache; I10 Essential (primary) hypertension; E78.00 Pure hypercholesterolemia, unspecified; G47.30 Sleep apnea, unspecified; N42.9 Disorder of prostate, unspecified; G89.29 Other chronic pain; M54.5 Low back pain; Z86.14 Personal history of Methicillin resistant Staphylococcus aureus infection; Z79.82 Long term (current) use of aspirin; Z79.899 Other long term (current) drug therapy; Z88.8 Allergy status to other drugs, medicaments and biological substances; Z88.0 Allergy status to penicillin; Z91.018 Allergy to other foods

== ENCOUNTER → 2017-06-15 | Outpatient (CLI) | payer MEDICARE, MEDICAID ==
[~2017-06-15] MED LIST changes: +PYRI1TAB5 PO; +ZANTTAB PO
== END ==
LOC: M LAB 09:30
PROVIDERS: ATTEND Urology
DX: N41.9 Inflammatory disease of prostate, unspecified (principal)

== ENCOUNTER → 2017-08-13 | Outpatient (CLI) | payer MEDICARE, MEDICAID ==
[2017-08-13 07:07] LABS: ALBUMIN 3.9 GM/DL (3.2-5.2); ALBUMIN/GLOBULIN RATIO 1.34 (1.00-1.93); ALKALINE PHOSPHATASE 98 U/L (45-117); ALT/SGPT 69 U/L (12-78); ANION GAP 6 MEQ/L (8-16); AST/SGOT 25 U/L (7-37); BILIRUBIN,TOTAL 0.9 MG/DL (0.2-1.0); BLOOD UREA NITROGEN 12 MG/DL (7-18); CALCIUM LEVEL 9.1 MG/DL (8.5-10.1); CARBON DIOXIDE LEVEL 29 MEQ/L (21-32); CHLORIDE LEVEL 106 MEQ/L (98-107); CREATININE FOR GFR 0.93 MG/DL (0.70-1.30); GLOMERULAR FILTRATION RATE > 60.0 (>60); GLUCOSE, FASTING 114 MG/DL (70-105); POTASSIUM SERUM 3.7 MEQ/L (3.5-5.1); SODIUM LEVEL 141 MEQ/L (136-145); TOTAL PROTEIN 6.8 GM/DL (6.4-8.2)
== END ==
LOC: M LAB 06:20
PROVIDERS: ATTEND Physician Assistant
DX: H10.30 Unspecified acute conjunctivitis, unspecified eye (principal); R73.03 Prediabetes; I10 Essential (primary) hypertension

== ENCOUNTER → 2017-11-04 | Outpatient (REF) | payer MEDICARE, MEDICAID | LOC: M SFHCPLAZ 13:28 | DX: J02.9 Acute pharyngitis, unspecified (principal) ==

== ENCOUNTER → 2017-11-13 | Outpatient (CLI) | payer MEDICARE, MEDICAID ==
[2017-11-13 11:12] LABS: BASO % 0.4 % (0.0-1.0); EOS # 0.1 10^3/uL (0.0-0.50); EOS % 1.5 % (0.0-3.0); HEMATOCRIT 41.6 % (42.0-52.0); HEMOGLOBIN 14.8 g/dl (14.0-18.0); IMMATURE GRANULOCYTE # 0.1 10^3/uL (0-0); IMMATURE GRANULOCYTE % 0.6 % (0-3.0); LYMPH # 2.6 10^3/uL (1.5-4.5); LYMPH % 30.9 % (24.0-44.0); MEAN CORPUSCULAR HEMOGLOBIN 29.1 pg (27.0-33.0); MEAN CORPUSCULAR HGB CONC 35.6 g/dl (32.0-36.5); MEAN CORPUSCULAR VOLUME 81.7 fl (80.0-96.0); MONO # 0.7 10^3/uL (0.0-0.8); MONO % 8.6 % (0.0-5.0); NEUTROPHILS # 4.9 10^3/uL (1.8-7.7); PLATELET COUNT, AUTOMATED 296 10^3/uL (150-450); RED BLOOD COUNT 5.09 10^6/uL (4.30-6.10); RED CELL DISTRIBUTION WIDTH 12.8 % (11.5-14.5); WHITE BLOOD COUNT 8.4 10^3/uL (4.0-10.0)
[2017-11-13 11:32] LABS: ALBUMIN 4.2 GM/DL (3.2-5.2); ANION GAP 7 MEQ/L (8-16); BLOOD UREA NITROGEN 9 MG/DL (7-18); CALCIUM LEVEL 9.3 MG/DL (8.5-10.1); CARBON DIOXIDE LEVEL 28 MEQ/L (21-32); CHLORIDE LEVEL 98 MEQ/L (98-107); CREATININE FOR GFR 0.78 MG/DL (0.70-1.30); GLOMERULAR FILTRATION RATE > 60.0 (>60); GLUCOSE, FASTING 97 MG/DL (70-100); NT-PRO BNP < 5 PG/ML (<125); POTASSIUM SERUM 3.8 MEQ/L (3.5-5.1); SODIUM LEVEL 133 MEQ/L (136-145)
== END ==
LOC: M LAB 10:25
DX: J02.9 Acute pharyngitis, unspecified (principal); R05 Cough
CPT/HCPCS: 71046

== ENCOUNTER → 2017-11-18 | Outpatient (REF) | payer MEDICARE, MEDICAID | LOC: M SMT 13:13 | DX: Z30.2 Encounter for sterilization (principal) | CPT/HCPCS: 88302 ==

== ENCOUNTER → 2017-12-24 | Outpatient (CLI) | payer MEDICARE, MEDICAID | LOC: M RAD 15:30 | DX: N50.819 Testicular pain, unspecified (principal) | CPT/HCPCS: 76870 ==

== ENCOUNTER → 2018-01-14 | Outpatient (REF) | payer MEDICARE, MEDICAID ==
[2018-01-14 11:14] LABS: IMMMOTILE SPERM CENTRIFUGED ABSENT (ABSENT); IMMOTILE SPERM ABSENT (ABSENT); MOTILE SPERM ABSENT (ABSENT); MOTILE SPERM CENTRIFUGED ABSENT (ABSENT); SEMEN APPEARANCE OPAQUE (OPAQUE); SEMEN VISCOSITY VISCOUS (LIQUID); WBC CONCENTRATION >1 M/ml (<=1 M/ml)
== END ==
LOC: M SMT 09:45
DX: Z30.2 Encounter for sterilization (principal)
CPT/HCPCS: 89321

== ENCOUNTER 2018-01-21 01:00 | Inpatient (IN) | payer MEDICARE, MEDICAID ==
[2018-01-21 02:07] LABS: HEMOGLOBIN 14.4 g/dl (13.5-17.5); MEAN CORPUSCULAR HEMOGLOBIN 29.3 pg (27.0-33.0); MEAN CORPUSCULAR HGB CONC 34.3 g/dl (32.0-36.5); MEAN CORPUSCULAR VOLUME 85.5 fl (80.0-96.0); PLATELET COUNT, AUTOMATED 214 10^3/uL (150-450); RED BLOOD COUNT 4.91 10^6/uL (4.30-6.10); RED CELL DISTRIBUTION WIDTH 13.2 % (11.5-14.5); WHITE BLOOD COUNT 11.5 10^3/uL (4.0-10.0)
[2018-01-21 02:26] LABS: ALBUMIN 4.4 GM/DL (3.2-5.2); ALBUMIN/GLOBULIN RATIO 1.33 (1.00-1.93); ALKALINE PHOSPHATASE 116 U/L (45-117); ALT/SGPT 97 U/L (12-78); ANION GAP 8 MEQ/L (8-16); AST/SGOT 33 U/L (7-37); BILIRUBIN,DIRECT 0.2 MG/DL (0.0-0.2); BILIRUBIN,TOTAL 1.3 MG/DL (0.2-1.0); BLOOD UREA NITROGEN 13 MG/DL (7-18); CALCIUM LEVEL 8.6 MG/DL (8.5-10.1); CARBON DIOXIDE LEVEL 25 MEQ/L (21-32); CHLORIDE LEVEL 108 MEQ/L (98-107); CREATININE FOR GFR 0.99 MG/DL (0.70-1.30); GLOMERULAR FILTRATION RATE > 60.0 (>60); GLUCOSE, FASTING 124 MG/DL (70-100); POTASSIUM SERUM 3.4 MEQ/L (3.5-5.1); SALICYLATE LEVEL < 1.7 MG/DL (5.0-30.0); SODIUM LEVEL 141 MEQ/L (136-145); TOTAL PROTEIN 7.7 GM/DL (6.4-8.2)
[2018-01-21 02:29] LABS: ACETAMINOPHEN LEVEL < 2.0 UG/ML (10.0-30.0); ETHYL ALCOHOL (ETHANOL) < 0.003 % (0.000-0.010)
[2018-01-21 02:36] LABS: AMPHETAMINES LEVEL URINE NEGATIVE (NEGATIVE); BARBITURATES URINE NEGATIVE (NEGATIVE); BENZODIAZEPINES URINE NEGATIVE (NEGATIVE); CANNABINOIDS URINE NEGATIVE (NEGATIVE); COCAINE METABOLITE URINE NEGATIVE (NEGATIVE); METHADONE URINE NEGATIVE (NEGATIVE); OPIATES URINE NEGATIVE (NEGATIVE); PHENCYCLIDINE URINE NEGATIVE (NEGATIVE)
[2018-01-21] MEDS ORDERED: MOM 30ML SUSPENSION UDC PO (03:30)
[2018-01-21] MEDS ORDERED: MAALOX 30 ML SUSP *UDC PO (03:30)
[2018-01-21] MEDS ORDERED: traZODone 50 MG TAB PO (03:30)
[2018-01-21] MEDS: ATORVASTATIN 20 MG TAB PO (10:26)
[2018-01-21] MEDS: PANTOPRAZOLE 40MG TAB (PROTONIX) PO (10:26)
[2018-01-21] MEDS: TOPIRAMATE (TopAMAX) 25 MG TAB PO ×2 (10:26→21:40)
[2018-01-21] MEDS: FAMOTIDINE 20 MG TAB PO ×2 (10:26→21:40)
[2018-01-21] MEDS: LISINOPRIL 10 MG TAB PO ×2 (10:26→21:41)
[2018-01-21] MEDS: ASPIRIN 81 MG ENTERIC TAB PO (10:26)
[2018-01-21] MEDS: POTASSIUM CHLORIDE 10 MEQ SR TABLET PO (10:26)
[2018-01-21] MEDS: TAMSULOSIN 0.4 MG CAP PO (10:27)
[2018-01-21] MEDS ORDERED: PILL CRUSHER/CUTTER 1 EACH XX (11:15)
[2018-01-21] MEDS: ONDANSETRON 4 MG ORAL DISINTEGRATING TAB (Q0162 PER 1MG) PO (13:39)
[2018-01-21] MEDS: CHLORTHALIDONE 25 MG TAB PO (21:40)
[2018-01-21] MEDS: SPIRONOLACTONE 12.5MG PER 1/2 TABLET PO (21:40)
[2018-01-22] MEDS: ACETAMINOPHEN TAB 650MG DOSE (2X325MG) PO ×2 (01:06→09:53)
[2018-01-22] MEDS: ONDANSETRON 4 MG ORAL DISINTEGRATING TAB (Q0162 PER 1MG) PO (03:33)
[2018-01-22] MEDS: TAMSULOSIN 0.4 MG CAP PO (08:15)
[2018-01-22] MEDS: ATORVASTATIN 20 MG TAB PO (08:15)
[2018-01-22] MEDS: FAMOTIDINE 20 MG TAB PO (08:15)
[2018-01-22] MEDS: LISINOPRIL 10 MG TAB PO (08:16)
[2018-01-22] MEDS: TOPIRAMATE (TopAMAX) 25 MG TAB PO (08:16)
[2018-01-22] MEDS: ASPIRIN 81 MG ENTERIC TAB PO (08:16)
[2018-01-22] MEDS: POTASSIUM CHLORIDE 10 MEQ SR TABLET PO (08:16)
[2018-01-22] MEDS: PANTOPRAZOLE 40MG TAB (PROTONIX) PO (08:16)
== END 2018-01-22 11:25 | disposition home or self-care (01) | DRG 881 ==
LOC: M ED 01:00 → M ED INP 03:29 → M PSY 03:51
DX: F43.21 Adjustment disorder with depressed mood (principal); I10 Essential (primary) hypertension; E78.5 Hyperlipidemia, unspecified; G47.33 Obstructive sleep apnea (adult) (pediatric); N40.0 Benign prostatic hyperplasia without lower urinary tract symptoms; Z79.82 Long term (current) use of aspirin; Z79.899 Other long term (current) drug therapy; Z88.0 Allergy status to penicillin; Z91.018 Allergy to other foods; Z88.8 Allergy status to other drugs, medicaments and biological substances; Z98.52 Vasectomy status; Z99.89 Dependence on other enabling machines and devices; Z86.73 Personal history of transient ischemic attack (TIA), and cerebral infarction without residual deficits

== ENCOUNTER → 2018-02-04 | Outpatient (CLI) | payer MEDICARE, MEDICAID ==
[2018-02-04 14:41] LABS: CHLAMYDIA DNA AMPLIFICATION NEGATIVE (NEGATIVE); GC DNA AMPLIFICATION NEGATIVE (NEGATIVE)
[2018-02-05 10:38] LABS: HIV 1&2 SCREEN CENTAUR NEGATIVE (NEGATIVE)
== END ==
LOC: M LAB 11:33
DX: Z20.2 Contact with and (suspected) exposure to infections with a predominantly sexual mode of transmission (principal)
CPT/HCPCS: 36415

== ENCOUNTER → 2018-02-15 | Outpatient (CLI) | payer MEDICARE, MEDICAID | LOC: M RAD 16:40 | DX: M79.644 Pain in right finger(s) (principal) | CPT/HCPCS: 73140 ==

== ENCOUNTER → 2018-04-09 | Outpatient (REF) | payer MEDICARE, MEDICAID ==
[2018-04-09 18:39] LABS: APPEARANCE, URINE CLEAR (CLEAR); BACTERIA, URINE AUTO NEGATIVE (NEGATIVE); BILIRUBIN, URINE AUTO NEGATIVE (NEGATIVE); BLOOD, URINE BLOOD NEGATIVE (NEGATIVE); COLOR, URINE YELLOW (YELLOW); GLUCOSE, URINE (UA) AUTO NEGATIVE (NEGATIVE); KETONE, URINE AUTO NEGATIVE (NEGATIVE); LEUKOCYTE ESTERASE, URINE AUTO NEGATIVE (NEGATIVE); NITRITE, URINE AUTO NEGATIVE (NEGATIVE); PROTEIN, URINE AUTO NEGATIVE (NEGATIVE); RBC, URINE AUTO 0 /HPF (0-3); SPECIFIC GRAVITY URINE AUTO 1.006 (1.002-1.035); SQUAMOUS EPITHELIAL CELL UR AU 0 /HPF (0-6); UROBILINOGEN, URINE AUTO 0.2 mg/dL (0.0-2.0); WBC, URINE AUTO 0 /HPF (0-3)
== END ==
LOC: M SMT 16:41
DX: R31.9 Hematuria, unspecified (principal)
CPT/HCPCS: 81001

== ENCOUNTER 2018-04-10 16:35 | Emergency (ER) | payer MEDICARE, MEDICAID ==
[2018-04-10 17:37] LABS: BASO % 0.2 % (0.0-1.0); EOS # 0.2 10^3/uL (0.0-0.50); EOS % 2.1 % (0.0-3.0); HEMATOCRIT 45.8 % (42.0-52.0); HEMOGLOBIN 15.8 g/dl (13.5-17.5); IMMATURE GRANULOCYTE % 0.3 % (0-3.0); LYMPH # 2.5 10^3/uL (1.5-4.5); MEAN CORPUSCULAR HEMOGLOBIN 29.7 pg (27.0-33.0); MEAN CORPUSCULAR HGB CONC 34.5 g/dl (32.0-36.5); MEAN CORPUSCULAR VOLUME 86.1 fl (80.0-96.0); MONO # 0.8 10^3/uL (0.0-0.8); MONO % 8.3 % (0.0-5.0); NEUTROPHILS # 6.1 10^3/uL (1.8-7.7); NEUTROPHILS % 63.1 % (36.0-66.0); PLATELET COUNT, AUTOMATED 229 10^3/uL (150-450); RED BLOOD COUNT 5.32 10^6/uL (4.30-6.10); RED CELL DISTRIBUTION WIDTH 13.3 % (11.5-14.5); WHITE BLOOD COUNT 9.6 10^3/uL (4.0-10.0)
[2018-04-10 17:58] LABS: ANION GAP 8 MEQ/L (8-16); BLOOD UREA NITROGEN 11 MG/DL (7-18); CALCIUM LEVEL 8.7 MG/DL (8.5-10.1); CARBON DIOXIDE LEVEL 27 MEQ/L (21-32); CHLORIDE LEVEL 106 MEQ/L (98-107); CREATININE FOR GFR 1.03 MG/DL (0.70-1.30); GLOMERULAR FILTRATION RATE > 60.0 (>60); GLUCOSE, FASTING 107 MG/DL (70-100); POTASSIUM SERUM 3.5 MEQ/L (3.5-5.1); SODIUM LEVEL 141 MEQ/L (136-145)
[2018-04-10 18:21] LABS: PROTEIN, URINE MANUAL REFLEX 2+ mg/dL (NEGATIVE); SP GRAVITY,URINE MANUAL REFLEX 1.025 (1.002-1.035)
[2018-04-10 18:22] LABS: BILIRUBIN, URINE MANUAL NEGATIVE (NEGATIVE); BLOOD URINE MANUAL RFX POSITIVE (NEGATIVE); GLUCOSE, URINE (UA) MANUAL NEGATIVE (NEGATIVE); KETONE, URINE MANUAL NEGATIVE (NEGATIVE); MICROSCOPIC INDICATED? RFX YES (NO); NITRITE, URINE MANUAL RFX NEGATIVE (NEGATIVE); UROBILINOGEN, URINE MANUAL NORMAL (NORMAL)
[2018-04-10 18:25] LABS: BACTERIA, URINE NONE SEEN; HYALINE CAST, URINE NONE SEEN /lpf (0-1); MUCUS, URINE SMALL AMOUNT (NEGATIVE); RBC, URINE TNTC /hpf (0-3); SQUAMOUS EPITHELIAL CELL URINE NONE SEEN /hpf (SMALL AMT)
[2018-04-10 18:27] LABS: MICROSCOPIC EXAM PERFORMED
[2018-04-10] MEDS ORDERED: ISOVUE-370 76% 100ML VIAL (Q9967) As Ordered (18:47)
[2018-04-10] MEDS: NS 1,000 ML IV (19:18)
[2018-04-10] MEDS: MORPHINE 4 MG/ML 1ML VIAL/SYRINGE (J2270) IV (19:18)
[2018-04-10] MEDS: ONDANSETRON 4MG/2ML VIAL (J2405) IV (19:18)
[2018-04-10] MEDS: OXYCODONE/APAP 5MG/325MG(BULK FOR ED) 1 TABLET PO (20:17)
== END 2018-04-10 20:19 | disposition home or self-care (01) ==
LOC: M ED 16:35
DX: R31.0 Gross hematuria (principal); M54.5 Low back pain; R10.30 Lower abdominal pain, unspecified; I10 Essential (primary) hypertension; K21.9 Gastro-esophageal reflux disease without esophagitis; R33.9 Retention of urine, unspecified; Z87.440 Personal history of urinary (tract) infections; Z79.82 Long term (current) use of aspirin; Z79.899 Other long term (current) drug therapy; Z88.0 Allergy status to penicillin; Z88.8 Allergy status to other drugs, medicaments and biological substances; Z91.018 Allergy to other foods
CPT/HCPCS: J2270

== ENCOUNTER 2018-05-04 22:04 | Emergency (ER) | payer MEDICARE, MEDICAID ==
[2018-05-04] MEDS: VANCOMYCIN HCL 500 MG in D5W MINI-BAG PLUS 100 ML IV (22:45)
[2018-05-04] MEDS ORDERED: ISOVUE-370 76% 100ML VIAL (Q9967) As Ordered (23:00)
[2018-05-04 23:14] LABS: BASO % 0.2 % (0.0-1.0); EOS # 0.1 10^3/uL (0.0-0.50); EOS % 1.2 % (0.0-3.0); HEMATOCRIT 43.4 % (42.0-52.0); HEMOGLOBIN 14.9 g/dl (13.5-17.5); IMMATURE GRANULOCYTE % 0.5 % (0-3.0); LYMPH # 2.6 10^3/uL (1.5-4.5); MEAN CORPUSCULAR HEMOGLOBIN 30.1 pg (27.0-33.0); MEAN CORPUSCULAR HGB CONC 34.3 g/dl (32.0-36.5); MEAN CORPUSCULAR VOLUME 87.7 fl (80.0-96.0); MONO % 9.5 % (0.0-5.0); NEUTROPHILS % 64.6 % (36.0-66.0); PLATELET COUNT, AUTOMATED 226 10^3/uL (150-450); RED BLOOD COUNT 4.95 10^6/uL (4.30-6.10); RED CELL DISTRIBUTION WIDTH 13.2 % (11.5-14.5); WHITE BLOOD COUNT 10.9 10^3/uL (4.0-10.0)
[2018-05-04 23:34] LABS: ERYTHROCYTE SEDIMENTATION RATE 4 mm/hr (0-15)
[2018-05-04 23:36] LABS: ANION GAP 10 MEQ/L (8-16); BLOOD UREA NITROGEN 11 MG/DL (7-18); C REACTIVE PROTEIN QUANTITATIV < 0.30 MG/DL (0.00-0.30); CALCIUM LEVEL 8.8 MG/DL (8.5-10.1); CARBON DIOXIDE LEVEL 25 MEQ/L (21-32); CHLORIDE LEVEL 108 MEQ/L (98-107); CREATININE FOR GFR 0.89 MG/DL (0.70-1.30); GLOMERULAR FILTRATION RATE > 60.0 (>60); GLUCOSE, FASTING 85 MG/DL (70-100); POTASSIUM SERUM 3.5 MEQ/L (3.5-5.1); SODIUM LEVEL 143 MEQ/L (136-145)
[2018-05-04] MEDS: VANCOMYCIN HCL 1,000 MG, VIAL MATE ADAPTER 1 EACH in D5W 250 ML IV (23:38)
[2018-05-04 23:40] LABS: LACTIC ACID SEPSIS PROTOCOL 0.9 MMOL/L (0.4-2.0)
[2018-05-05] MEDS ORDERED: ISOVUE-370 76% 100ML VIAL (Q9967) As Ordered (00:09)
== END 2018-05-05 02:16 | disposition home or self-care (01) ==
LOC: M ED 05-05 02:16
DX: L03.213 Periorbital cellulitis (principal); I10 Essential (primary) hypertension; Z79.899 Other long term (current) drug therapy; Z79.82 Long term (current) use of aspirin; Z88.0 Allergy status to penicillin; Z88.8 Allergy status to other drugs, medicaments and biological substances; Z91.018 Allergy to other foods
CPT/HCPCS: J0696

== ENCOUNTER 2018-05-05 22:24 | Emergency (ER) | payer MEDICARE, MEDICAID ==
[2018-05-05 23:16] LABS: BASO % 0.2 % (0.0-1.0); EOS # 0.1 10^3/uL (0.0-0.50); EOS % 0.8 % (0.0-3.0); HEMOGLOBIN 14.8 g/dl (13.5-17.5); IMMATURE GRANULOCYTE % 0.2 % (0-3.0); LYMPH # 2.8 10^3/uL (1.5-4.5); LYMPH % 22.7 % (24.0-44.0); MEAN CORPUSCULAR HGB CONC 34.4 g/dl (32.0-36.5); MEAN CORPUSCULAR VOLUME 87.2 fl (80.0-96.0); MONO % 8.6 % (0.0-5.0); NEUTROPHILS # 8.2 10^3/uL (1.8-7.7); NEUTROPHILS % 67.5 % (36.0-66.0); PLATELET COUNT, AUTOMATED 229 10^3/uL (150-450); RED BLOOD COUNT 4.93 10^6/uL (4.30-6.10); RED CELL DISTRIBUTION WIDTH 13.2 % (11.5-14.5); WHITE BLOOD COUNT 12.1 10^3/uL (4.0-10.0)
[2018-05-05 23:35] LABS: ANION GAP 7 MEQ/L (8-16); BLOOD UREA NITROGEN 8 MG/DL (7-18); C REACTIVE PROTEIN QUANTITATIV < 0.30 MG/DL (0.00-0.30); CARBON DIOXIDE LEVEL 27 MEQ/L (21-32); CHLORIDE LEVEL 105 MEQ/L (98-107); CREATININE FOR GFR 0.92 MG/DL (0.70-1.30); GLOMERULAR FILTRATION RATE > 60.0 (>60); GLUCOSE, FASTING 94 MG/DL (70-100); POTASSIUM SERUM 3.5 MEQ/L (3.5-5.1); SODIUM LEVEL 139 MEQ/L (136-145)
[2018-05-05] MEDS: VANCOMYCIN HCL 1,000 MG, VIAL MATE ADAPTER 1 EACH in D5W 250 ML IV (23:50)
[2018-05-05] MEDS: VANCOMYCIN HCL 500 MG in D5W MINI-BAG PLUS 100 ML IV (23:50)
[2018-05-06 02:24] LABS: ERYTHROCYTE SEDIMENTATION RATE 3 mm/hr (0-15)
== END 2018-05-06 01:39 | disposition home or self-care (01) ==
LOC: M ED 05-06 01:39
DX: L03.213 Periorbital cellulitis (principal); I10 Essential (primary) hypertension; E78.5 Hyperlipidemia, unspecified; K21.9 Gastro-esophageal reflux disease without esophagitis; G47.33 Obstructive sleep apnea (adult) (pediatric); M54.5 Low back pain; Z99.89 Dependence on other enabling machines and devices; Z79.899 Other long term (current) drug therapy; Z79.82 Long term (current) use of aspirin; Z88.0 Allergy status to penicillin
CPT/HCPCS: J0696

== ENCOUNTER 2018-09-13 18:20 | Emergency (ER) | payer MEDICARE, MEDICAID ==
[~2018-09-13] VITALS: Ht 157.5 cm; Wt 109.1 kg
[~2018-09-13 18:20] MED LIST changes: +ACET-683 PO; +AMLO2.5T2 PO; +ATOR40TA75 PO; +CHLO25TA PO; +FLOM0.4C39 PO; -FLOM5CAP PO; +NAPR-885 PO; -NAPR500T3 PO; +SPIR-10 PO; -SPIR25TA2 PO; -SULF1TAB23 PO; +SULF1TAB93 PO; +TYLE325T5 PO; +XIID5DRO OU
[2018-09-13 18:42] LABS: BASO % 0.4 % (0.0-1.0); EOS # 0.2 10^3/uL (0.0-0.50); EOS % 1.7 % (0.0-3.0); HEMATOCRIT 50.9 % (42.0-52.0); HEMOGLOBIN 17.4 g/dl (13.5-17.5); LYMPH # 3.4 10^3/uL (1.5-4.5); LYMPH % 33.9 % (24.0-44.0); MEAN CORPUSCULAR HGB CONC 34.2 g/dl (32.0-36.5); MEAN CORPUSCULAR VOLUME 84.8 fl (80.0-96.0); MONO % 9.6 % (0.0-5.0); NEUTROPHILS # 5.3 10^3/uL (1.8-7.7); PLATELET COUNT, AUTOMATED 245 10^3/uL (150-450); WHITE BLOOD COUNT 9.9 10^3/uL (4.0-10.0)
[2018-09-13] MEDS ORDERED: MORPHINE 2 MG/ML 1ML SYRINGE (J2270) IV PRN (19:00)
[2018-09-13] MEDS ORDERED: ONDANSETRON 4MG/2ML VIAL (J2405) IV ONE (19:00)
[2018-09-13 19:21] LABS: ALBUMIN 4.2 GM/DL (3.2-5.2); ALT/SGPT 63 U/L (12-78); BILIRUBIN,DIRECT 0.2 MG/DL (0.0-0.2); BILIRUBIN,TOTAL 1.2 MG/DL (0.2-1.0); BLOOD UREA NITROGEN 13 MG/DL (7-18); CALCIUM LEVEL 8.8 MG/DL (8.5-10.1); CARBON DIOXIDE LEVEL 27 MEQ/L (21-32); CHLORIDE LEVEL 102 MEQ/L (98-107); CPK CREATINE PHOSPHOKINASE 364 U/L (39-308); CREATININE FOR GFR 1.21 MG/DL (0.70-1.30); GLOMERULAR FILTRATION RATE > 60.0 (>60); GLUCOSE, FASTING 91 MG/DL (70-100); LIPASE 85 U/L (73-393); MB/CK RELATIVE INDEX 0.58 (< OR =4); POTASSIUM SERUM 3.6 MEQ/L (3.5-5.1); SODIUM LEVEL 137 MEQ/L (136-145); TOTAL PROTEIN 7.7 GM/DL (6.4-8.2); TROPONIN I < 0.02 NG/ML (< 0.10)
--- NOTE | 2018-09-13 19:28 | REP ---
Chest one-view HISTORY: chest pain Comparison: 11/13/2017 The lungs are clear. The heart is normal in size. The pulmonary vasculature is normal in appearance. Impression: No acute disease. Electronically Signed by Jamil Mcnally MD 09/13/2018 07:19 P
--- NOTE | 2018-09-13 19:28 | ECGEPIP ---
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
[2018-09-13] MEDS ORDERED: KETOROLAC 30 MG/ML VIAL (J1885) IV ONE (20:45)
--- NOTE | 2018-09-13 22:05 | REPVR ---
EXAM: CT Head Without Contrast EXAM DATE/TIME: 09/13/2018 9:06 PM CLINICAL HISTORY: 42 years old, male; Injury or trauma; Fall; Additional info: Fall, left arm parasthesia TECHNIQUE: Axial computed tomography images of the head/brain without contrast. All CT scans at this facility use at least one of these dose optimization techniques: automated exposure control; mA and/or kV adjustment per patient size (includes targeted exams where dose is matched to clinical indication); or iterative reconstruction. COMPARISON: CT Head without contrast 08/26/2013 5:26 PM FINDINGS: Brain: No CT evidence of acute intracranial hemorrhage or acute territorial infarction. No significant mass effect or midline shift. Basal cisterns patent. Ventricles: Normal in size and configuration. Bones/joints: No acute osseous abnormality. Sinuses: Minimal ethmoid mucosal thickening. Mastoid air cells: Grossly unremarkable. Soft tissues: Grossly unremarkable. IMPRESSION: 1. No CT evidence of acute intracranial pathology. 2. Additional findings, as above. Electronically signed by: Justin Palmer On 09/13/2018 22:05:38 PM
--- NOTE | 2018-09-13 22:09 | REPVR ---
EXAM: CT Cervical Spine Without Contrast EXAM DATE/TIME: 09/13/2018 9:06 PM CLINICAL HISTORY: 42 years old, male; Injury or trauma; Fall; Initial encounter; Blunt trauma; Additional info: Left arm numbness TECHNIQUE: Axial computed tomography images of the cervical spine without intravenous contrast. All CT scans at this facility use at least one of these dose optimization techniques: automated exposure control; mA and/or kV adjustment per patient size (includes targeted exams where dose is matched to clinical indication); or iterative reconstruction. Coronal and sagittal reformatted images were created and reviewed. COMPARISON: No relevant prior studies available. FINDINGS: Vertebrae: Mild straightening of the normal cervical lordosis. Alignment anatomic. No CT evidence of acute fracture, dislocation or subluxation. Vertebral body heights maintained. Discs/Spinal canal/Neural foramina: Mild multilevel spondylosis. No significant spinal canal or neural foraminal stenosis. Soft tissues: Grossly unremarkable. Lungs: Azygous lobe. IMPRESSION: 1. No CT evidence of acute cervical spine traumatic injury. 2. Additional findings, as above. Electronically signed by: Justin Palmer On 09/13/2018 22:08:51 PM
[2018-09-13 23:00] VITALS: BP 119/62
[2018-09-13] MEDS ORDERED: PERCOCET 5MG/325MG TAB PO ONE (23:00)
[2018-09-13] MEDS ORDERED: NEUR100C PO (23:12)
--- NOTE | 2018-09-14 08:09 | REP ---
Left shoulder: Three views. History: Pain. Findings: The glenohumeral and acromioclavicular joints are normally aligned. Periarticular soft tissues are unremarkable. No fracture is seen. Impression: Negative radiographs of the left shoulder. Electronically Signed by Jemal Elkins MD 09/14/2018 09:04 A
== END 2018-09-13 23:17 | disposition home or self-care (01) ==
LOC: M ED 18:20
DX: R07.89 Other chest pain (principal); M25.512 Pain in left shoulder; M54.12 Radiculopathy, cervical region; I10 Essential (primary) hypertension; E78.5 Hyperlipidemia, unspecified; G47.33 Obstructive sleep apnea (adult) (pediatric); Z79.899 Other long term (current) drug therapy; Z79.82 Long term (current) use of aspirin; Z88.0 Allergy status to penicillin; Z88.8 Allergy status to other drugs, medicaments and biological substances; Z91.018 Allergy to other foods
CPT/HCPCS: 36415; 70450; 71045; 72125; 73030; 80048; 80076; 82550; 82553; 83690; 84484; 85025; 93005; 93041; 94760; 96374; 96375; 99285; J1885; J2270; J2405

== ENCOUNTER 2018-11-06 19:25 | Emergency (ER) | payer MEDICARE, MEDICAID ==
[~2018-11-06] VITALS: Ht 167.6 cm; Wt 109.1 kg
[~2018-11-06 19:25] MED LIST changes: -AMLO2.5T2 PO; +AMLO2.5T3 PO; +NEUR100C PO
--- NOTE | 2018-11-06 19:51 | ECGEPIP ---
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
[2018-11-06] MEDS ORDERED: LISI-538 PO (20:47)
[2018-11-06 21:14] VITALS: BP 116/65
[2018-11-06] MEDS ORDERED: NORCO, ANEXSIA 5/325MG TABLET (HYDROcodone/ACETAMINOPHEN) PO ONE (21:15)
== END 2018-11-06 21:28 | disposition home or self-care (01) ==
LOC: M ED 19:25
DX: T75.4XXA Electrocution, initial encounter (principal); W86.8XXA Exposure to other electric current, initial encounter; Y92.89 Other specified places as the place of occurrence of the external cause; I11.9 Hypertensive heart disease without heart failure; E78.00 Pure hypercholesterolemia, unspecified; G47.33 Obstructive sleep apnea (adult) (pediatric)

== ENCOUNTER 2018-12-10 21:59 | Emergency (ER) | payer MEDICARE, MEDICAID ==
[~2018-12-10] VITALS: Ht 165.1 cm; Wt 110.0 kg
[~2018-12-10 21:59] MED LIST changes: +LISI-538 PO
[2018-12-10 22:00] VITALS: BP 163/88
[2018-12-10] MEDS ORDERED: IBUP-1022 PO (22:39)
[2018-12-10] MEDS ORDERED: BACT800T5 PO (22:39)
[2018-12-10] MEDS ORDERED: BACTRIM 160MG/800MG DS TAB PO ONE (22:45)
== END 2018-12-10 22:47 | disposition home or self-care (01) ==
LOC: M ED 21:59
DX: L02.211 Cutaneous abscess of abdominal wall (principal); L03.311 Cellulitis of abdominal wall; I25.10 Atherosclerotic heart disease of native coronary artery without angina pectoris; I10 Essential (primary) hypertension; Z88.8 Allergy status to other drugs, medicaments and biological substances; Z88.0 Allergy status to penicillin; Z91.018 Allergy to other foods; Z79.82 Long term (current) use of aspirin; Z79.899 Other long term (current) drug therapy

== ENCOUNTER → 2019-03-18 | Outpatient (REF) | payer MEDICARE, MEDICAID ==
[~2019-03-18] MED LIST changes: +BACT800T5 PO; +IBUP-1022 PO; +ZANT150T40 PO; -ZANTTAB PO
[2019-03-18 19:35] LABS: HEMATOCRIT 43.2 % (42.0-52.0); HEMOGLOBIN 14.6 g/dl (13.5-17.5); MEAN CORPUSCULAR HGB CONC 33.8 g/dl (32.0-36.5); MEAN CORPUSCULAR VOLUME 88.9 fl (80.0-96.0); PLATELET COUNT, AUTOMATED 230 10^3/uL (150-450); RED BLOOD COUNT 4.86 10^6/uL (4.30-6.10); WHITE BLOOD COUNT 6.3 10^3/uL (4.0-10.0)
[2019-03-18 20:22] LABS: HEMOGLOBIN A1c 5.8 %
[2019-03-18 20:37] LABS: ALT/SGPT 70 U/L (12-78); BILIRUBIN,TOTAL 0.9 MG/DL (0.2-1.0); BLOOD UREA NITROGEN 13 MG/DL (7-18); CALCIUM LEVEL 9.1 MG/DL (8.5-10.1); CARBON DIOXIDE LEVEL 26 MEQ/L (21-32); CHLORIDE LEVEL 106 MEQ/L (98-107); CREATININE FOR GFR 1.07 MG/DL (0.70-1.30); GLOMERULAR FILTRATION RATE > 60.0 (>60); GLUCOSE, FASTING 126 MG/DL (70-100); POTASSIUM SERUM 3.7 MEQ/L (3.5-5.1); SODIUM LEVEL 141 MEQ/L (136-145); TOTAL PROTEIN 6.9 GM/DL (6.4-8.2)
== END ==
LOC: M SFHCADAM 15:41
PROVIDERS: ATTEND Physician Assistant
DX: I10 Essential (primary) hypertension (principal); E78.2 Mixed hyperlipidemia; K21.9 Gastro-esophageal reflux disease without esophagitis; R73.03 Prediabetes
CPT/HCPCS: 80053; 83036; 85027; G0463

== ENCOUNTER 2019-09-05 18:28 | Emergency (ER) | payer MEDICAID, MEDICARE ==
[~2019-09-05] VITALS: Ht 167.6 cm; Wt 50.4 kg
[2019-09-05] MEDS ORDERED: LORA-674 PO (18:47)
[2019-09-05] MEDS ORDERED: MORPHINE 4 MG/ML 1ML VIAL/SYRINGE (J2270) IV ONE (19:00)
[2019-09-05] MEDS ORDERED: diazePAM 10 MG TAB PO ONE (19:00)
[2019-09-05] MEDS ORDERED: NS 1,000 ML IV ONE (19:00)
[2019-09-05 19:43] LABS: BASO % 0.4 % (0.0-1.0); EOS # 0.2 10^3/uL (0.0-0.5); EOS % 2.4 % (0.0-3.0); HEMOGLOBIN 13.6 g/dl (13.5-17.5); LYMPH # 2.6 10^3/uL (1.5-5.0); LYMPH % 34.5 % (24.0-44.0); MEAN CORPUSCULAR HEMOGLOBIN 29.4 pg (27.0-33.0); MEAN CORPUSCULAR VOLUME 86.6 fl (80.0-96.0); MONO # 0.7 10^3/uL (0.0-0.8); MONO % 9.1 % (0.0-5.0); NEUTROPHILS % 53.2 % (36.0-66.0); PLATELET COUNT, AUTOMATED 204 10^3/uL (150-450); RED BLOOD COUNT 4.62 10^6/uL (4.30-6.10); WHITE BLOOD COUNT 7.4 10^3/uL (4.0-10.0)
[2019-09-05 19:54] LABS: INR 1.03; PARTIAL THROMBOPLASTIN TIME 31.1 SECONDS (25.0-38.4); PROTHROMBIN TIME 13.2 SECONDS (11.8-14.0)
[2019-09-05 20:07] LABS: ERYTHROCYTE SEDIMENTATION RATE 121 mm/hr (0-15)
[2019-09-05 20:20] LABS: BLOOD UREA NITROGEN 11 MG/DL (7-18); CALCIUM LEVEL 8.9 MG/DL (8.5-10.1); CARBON DIOXIDE LEVEL 28 MEQ/L (21-32); CHLORIDE LEVEL 108 MEQ/L (98-107); CK-MB VALUE MASS 1.4 NG/ML (<3.6); CPK CREATINE PHOSPHOKINASE 202 U/L (39-308); CREATININE FOR GFR 1.01 MG/DL (0.70-1.30); GLOMERULAR FILTRATION RATE > 60.0 (>60); GLUCOSE, FASTING 88 MG/DL (70-100); MB/CK RELATIVE INDEX 0.69 (< OR =4); POTASSIUM SERUM 3.9 MEQ/L (3.5-5.1); SODIUM LEVEL 141 MEQ/L (136-145); TROPONIN I < 0.02 NG/ML (< 0.10)
--- NOTE | 2019-09-05 20:48 | REPVR ---
PROCEDURE INFORMATION: Exam: US Duplex Left Upper Extremity Veins, Limited Exam date and time: 09/05/2019 8:27 PM Age: 43 years old Clinical history: Pain; Arm, upper; Left; Additional info: L upper arm/shoulder pain, no verenice TECHNIQUE: Imaging protocol: Real-time Duplex ultrasound of the Left Upper Extremity with 2-D hidalgo scale, color Doppler flow and spectral waveform analysis with image documentation. Limited exam focused on the left upper extremity veins. COMPARISON: No relevant prior studies available. FINDINGS: Left deep veins: Internal jugular, subclavian, axillary and brachial veins patent without thrombus. Normal compressibility, augmentation response and/or Doppler waveforms. Left superficial veins: Visualized cephalic and basilic veins patent without thrombus. Soft tissues: Unremarkable. IMPRESSION: No sonographic evidence of deep vein thrombosis. Electronically signed by: Justin Palmer On 09/05/2019 20:47:26 PM
[2019-09-05] MEDS ORDERED: METHOCARBAMOL 1,000 MG/10 ML VIAL (J2800) IV ONE (21:45)
[2019-09-05] MEDS ORDERED: KETOROLAC 30 MG/ML VIAL (J1885) IV ONE (22:00)
[2019-09-05 22:42] LABS: CK-MB VALUE MASS 1.5 NG/ML (<3.6); CPK CREATINE PHOSPHOKINASE 178 U/L (39-308); MB/CK RELATIVE INDEX 0.84 (< OR =4); TROPONIN I < 0.02 NG/ML (< 0.10)
[2019-09-05] MEDS ORDERED: NORCO 5/325MG TABLET (BULK FOR ED) PO ONE (23:00)
[2019-09-05] MEDS ORDERED: ROBA750T4 PO (23:03)
[2019-09-05] MEDS ORDERED: LIDO1CRE2 TOP (23:03)
[2019-09-05] MEDS ORDERED: NAPR-837 PO (23:03)
[2019-09-05 23:20] VITALS: BP 109/58
--- NOTE | 2019-09-06 08:13 | ECGEPIP ---
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
--- NOTE | 2019-09-06 09:30 | REP ---
Chest x-ray: Two views. History: Chest pain. Comparison chest x-ray 09/13/2018 and 11/13/2017. Findings: The patient is rotated somewhat to the right for the current exposure which is made at a lesser level of inspiration. An azygos lobe is present as previously seen. There is increased density in the right base along the right heart border suggesting right lower lobe infiltrate. This appears to be overlying the spine on the lateral view. Heart size is borderline. No other infiltrate is seen. Pleural angles are sharp. No bony abnormality. Impression: Suspect right lower lobe infiltrate. Somewhat low level of inspiration. Electronically Signed by Jemal Elkins MD 09/06/2019 05:13 P
--- NOTE | 2019-09-07 13:07 | ED PDOC ---
Post-Departure Follow-Up phil wright faxed formal report of cxr for fu Ministerio Mascorro MD Sep 07, 2019 13:07
== END 2019-09-05 23:37 | disposition home or self-care (01) ==
LOC: M ED 18:28
DX: R07.89 Other chest pain (principal); M25.512 Pain in left shoulder; M54.6 Pain in thoracic spine; I10 Essential (primary) hypertension; G47.33 Obstructive sleep apnea (adult) (pediatric); Z79.899 Other long term (current) drug therapy; Z79.82 Long term (current) use of aspirin; Z88.0 Allergy status to penicillin; Z88.8 Allergy status to other drugs, medicaments and biological substances; Z91.018 Allergy to other foods; Z91.038 Other insect allergy status
CPT/HCPCS: 71046; 80048; 82550; 82553; 84484; 85025; 85610; 85652; 85730; 86140; 93005; 93041; 93971; 94760; 96361; 96374; 96375; 99284; J1885; J2270; J2800

== ENCOUNTER 2019-09-25 19:51 | Emergency (ER) | payer MEDICARE ==
[~2019-09-25] VITALS: Ht 165.1 cm; Wt 110.9 kg
[~2019-09-25 19:51] MED LIST changes: +LIDO1CRE2 TOP; +LORA-674 PO; +NAPR-837 PO; +ROBA750T4 PO
[2019-09-25] MEDS ORDERED: MORPHINE 4 MG/ML 1ML VIAL/SYRINGE (J2270) IV ONE (21:30)
[2019-09-25 22:00] LABS: BASO % 0.5 % (0.0-1.0); EOS # 0.2 10^3/uL (0.0-0.5); EOS % 2.2 % (0.0-3.0); HEMATOCRIT 45.8 % (42.0-52.0); HEMOGLOBIN 15.6 g/dl (13.5-17.5); LYMPH # 2.6 10^3/uL (1.5-5.0); LYMPH % 30.3 % (24.0-44.0); MEAN CORPUSCULAR HEMOGLOBIN 29.8 pg (27.0-33.0); MEAN CORPUSCULAR HGB CONC 34.1 g/dl (32.0-36.5); MEAN CORPUSCULAR VOLUME 87.4 fl (80.0-96.0); MONO % 11.5 % (0.0-5.0); NEUTROPHILS # 4.8 10^3/uL (1.5-8.5); NEUTROPHILS % 55.2 % (36.0-66.0); PLATELET COUNT, AUTOMATED 250 10^3/uL (150-450); RED BLOOD COUNT 5.24 10^6/uL (4.30-6.10); WHITE BLOOD COUNT 8.7 10^3/uL (4.0-10.0)
[2019-09-25] MEDS ORDERED: ISOVUE-370 76% 100ML VIAL (Q9967) As Ordered ONE (22:28)
[2019-09-25 22:29] LABS: ALBUMIN 4.5 GM/DL (3.2-5.2); BILIRUBIN,DIRECT 0.2 MG/DL (0.0-0.2); BILIRUBIN,TOTAL 0.9 MG/DL (0.2-1.0)
--- NOTE | 2019-09-25 22:36 | REPVR ---
PROCEDURE INFORMATION: Exam: US Scrotum Exam date and time: 09/25/2019 10:15 PM Age: 43 years old Clinical indication: Scrotum pain; Additional info: Redness, swelling, bilateral TECHNIQUE: Imaging protocol: Real-time ultrasound of the scrotum and contents with color Doppler and image documentation. COMPARISON: Scrotal, US 12/24/2017 3:35 PM FINDINGS: Right testicle: The right testis measures 3.1 x 4.7 x 2.6 cm and demonstrates adequately homogeneous parenchyma. There is normal blood flow with a resistive index of 0.48. Left testicle: The left testis is homogeneous and measures 2.8 x 4.1 x 2.7 cm. There is normal blood flow with a resistive index of 0.3. Epididymides: The right epididymal head measures 7 mm. The right epididymal head measures 7 mm. Scrotum: Minimal right hydrocele. Right scrotal skin thickness is 4 mm with slight hyperemia. There is minimal left hydrocele. Scrotal skin thickness is 3 mm. IMPRESSION: 1. Slight scrotal skin thickening, right greater than left with hyperemia on the right. 2. Minimal bilateral hydroceles. 3. Otherwise negative testicular sonogram with bilateral testicular blood flow. Electronically signed by: Herve Cabello On 09/25/2019 22:35:36 PM
--- NOTE | 2019-09-25 23:06 | REPVR ---
PROCEDURE INFORMATION: Exam: CT Pelvis With Contrast Exam date and time: 09/25/2019 10:36 PM Age: 43 years old Clinical indication: Mass, lump, or swelling; Other: Swelling rectum to scrotum; Additional info: Redness, tender, swollen rectum to scrotum TECHNIQUE: Imaging protocol: Computed tomography images of the pelvis with intravenous contrast. Radiation optimization: All CT scans at this facility use at least one of these dose optimization techniques: automated exposure control; mA and/or kV adjustment per patient size (includes targeted exams where dose is matched to clinical indication); or iterative reconstruction. Contrast material: ISOVUE 370; Contrast volume: 100 ml; Contrast route: IV; COMPARISON: SR CT ABD PELVIS W/O FOL BY WIT 04/10/2018 6:48 PM FINDINGS: Stomach and bowel: Visualized small bowel and colon are unremarkable. Appendix: There are no changes of appendicitis. A normal appendix is not seen. Intraperitoneal space: Unremarkable. No free air. No significant fluid collection. Lymph nodes: Unremarkable. No enlarged lymph nodes. Bladder: Normal. No mass. Reproductive: Normal as visualized. Bones/joints: Unremarkable. No acute fracture. No dislocation. Soft tissues: Minimal fat filled umbilical hernia. There is question of slight subcutaneous induration in the left aspect of the perineum. No perianal abscess. IMPRESSION: 1. Question of slight subcutaneous induration of the left perineum. 2. Otherwise negative CT pelvis. No abscess is seen. Electronically signed by: Herve Cabello On 09/25/2019 23:06:12 PM
[2019-09-25] MEDS ORDERED: NORC1TAB7 PO (23:39)
[2019-09-25] MEDS ORDERED: CLEO300C2 PO (23:39)
[2019-09-25] MEDS ORDERED: CLINDAMYCIN 900 MG in IV 1 EA IV ONE (23:45)
[2019-09-26 00:21] VITALS: BP 111/56
[2019-09-26] MEDS ORDERED: NORCO 5/325MG TABLET (BULK FOR ED) PO ONE (00:30)
== END 2019-09-26 00:31 | disposition home or self-care (01) ==
LOC: M ED 19:51
DX: N49.9 Inflammatory disorder of unspecified male genital organ (principal); I10 Essential (primary) hypertension; E78.5 Hyperlipidemia, unspecified; N40.0 Benign prostatic hyperplasia without lower urinary tract symptoms; Z88.0 Allergy status to penicillin; Z88.8 Allergy status to other drugs, medicaments and biological substances; Z91.018 Allergy to other foods; Z91.038 Other insect allergy status
CPT/HCPCS: 72193; 76870; 80047; 80076; 81001; 83605; 83690; 85025; 87086; 93976; 96365; 96375; 99284; J2270; Q9967

== ENCOUNTER → 2019-10-03 | Outpatient (REF) | payer MEDICARE, MEDICAID ==
[~2019-10-03] MED LIST changes: +CLEO300C2 PO; +NORC1TAB7 PO
[2019-10-03 17:37] LABS: APPEARANCE, URINE CLEAR (CLEAR); BACTERIA, URINE AUTO NEGATIVE (NEGATIVE); BILIRUBIN, URINE AUTO NEGATIVE (NEGATIVE); BLOOD, URINE BLOOD NEGATIVE (NEGATIVE); COLOR, URINE YELLOW (YELLOW); GLUCOSE, URINE (UA) AUTO 1+ mg/dL (NEGATIVE); KETONE, URINE AUTO NEGATIVE (NEGATIVE); LEUKOCYTE ESTERASE, URINE AUTO NEGATIVE (NEGATIVE); NITRITE, URINE AUTO NEGATIVE (NEGATIVE); PROTEIN, URINE AUTO NEGATIVE (NEGATIVE); RBC, URINE AUTO 0 /HPF (0-3); SPECIFIC GRAVITY URINE AUTO 1.009 (1.002-1.035); SQUAMOUS EPITHELIAL CELL UR AU 1 /HPF (0-6); UROBILINOGEN, URINE AUTO 0.2 mg/dL (0.0-2.0); WBC, URINE AUTO 1 /HPF (0-3)
== END ==
LOC: M SMT 16:56
PROVIDERS: ATTEND Nurse Practitioner Family
DX: R39.198 Other difficulties with micturition (principal)

== ENCOUNTER 2019-10-06 11:09 | Inpatient (IN) | payer MEDICAID, MEDICARE ==
[~2019-10-06] VITALS: Ht 162.6 cm; Wt 114.0 kg
[2019-10-06 12:40] VITALS: BP 125/91
[2019-10-06] MEDS ORDERED: D3 22000 PO (12:58)
[2019-10-06] MEDS ORDERED: LISI-538 PO (12:58)
[2019-10-06] MEDS ORDERED: CALC600T66 PO (12:59)
[2019-10-06] MEDS ORDERED: FAMO20TA PO (12:59)
[2019-10-06] MEDS ORDERED: FINA5TAB2 PO (12:59)
[2019-10-06 13:05] LABS: BASO % 0.3 % (0.0-1.0); EOS # 0.2 10^3/uL (0.0-0.5); EOS % 1.6 % (0.0-3.0); HEMATOCRIT 43.1 % (42.0-52.0); HEMOGLOBIN 14.7 g/dl (13.5-17.5); LYMPH # 2.1 10^3/uL (1.5-5.0); LYMPH % 20.9 % (24.0-44.0); MEAN CORPUSCULAR HEMOGLOBIN 28.9 pg (27.0-33.0); MEAN CORPUSCULAR HGB CONC 34.1 g/dl (32.0-36.5); MEAN CORPUSCULAR VOLUME 84.8 fl (80.0-96.0); MONO # 1.2 10^3/uL (0.0-0.8); MONO % 11.7 % (0.0-5.0); NEUTROPHILS # 6.6 10^3/uL (1.5-8.5); NEUTROPHILS % 64.5 % (36.0-66.0); PLATELET COUNT, AUTOMATED 262 10^3/uL (150-450); RED BLOOD COUNT 5.08 10^6/uL (4.30-6.10); WHITE BLOOD COUNT 10.2 10^3/uL (4.0-10.0)
[2019-10-06 13:30] LABS: ERYTHROCYTE SEDIMENTATION RATE 3 mm/hr (0-15)
[2019-10-06 13:34] LABS: ALBUMIN 4.2 GM/DL (3.2-5.2); ALT/SGPT 134 U/L (12-78); BILIRUBIN,TOTAL 0.8 MG/DL (0.2-1.0); BLOOD UREA NITROGEN 15 MG/DL (7-18); CALCIUM LEVEL 8.8 MG/DL (8.5-10.1); CARBON DIOXIDE LEVEL 26 MEQ/L (21-32); CHLORIDE LEVEL 99 MEQ/L (98-107); CREATININE FOR GFR 0.96 MG/DL (0.70-1.30); GLOMERULAR FILTRATION RATE > 60.0 (>60); GLUCOSE, FASTING 96 MG/DL (70-100); POTASSIUM SERUM 3.8 MEQ/L (3.5-5.1); SODIUM LEVEL 133 MEQ/L (136-145); TOTAL PROTEIN 7.5 GM/DL (6.4-8.2)
[2019-10-06 14:00] VITALS: BP 121/62
[2019-10-06] MEDS ORDERED: ACETAMINOPHEN TAB 650MG DOSE (2X325MG) PO PRN (14:00)
--- NOTE | 2019-10-06 14:01 | REP ---
CT ABDOMEN AND PELVIS WITHOUT IV OR ORAL CONTRAST: HISTORY: Increased perineal pain. Comparison CT pelvis study September 25, 2019. CT FINDINGS: Digital preliminary technical fellow radiograph demonstrates an unremarkable bowel gas pattern. A Mera catheter is noted. The lung bases are clear on axial CT images. There is mild diffuse fatty infiltration of the liver. No focal liver lesion is seen. No adrenal lesion is observed. The spleen is unremarkable. No abnormalities noted in the gallbladder or the pancreas. There is no evidence of hydronephrosis, calculus or renal mass on either side. No retroperitoneal mass or adenopathy is seen. There are surgical clips in the right lower quadrant suggesting previous appendectomy. Small and large bowel loops are normal in the abdomen and pelvis. No evidence of adenopathy in the abdomen or pelvis. No abdominal wall defect is seen. Urinary bladder is unremarkable except for the presence of a Mera catheter. In the perineum, there is a stable subtle asymmetry just to the left of the anus in the perineal fat. This is completely unchanged from September 25, 2019. No abscess or evidence of cellulitis is seen. No bony destructive lesion is observed. IMPRESSION: Fatty infiltration of the liver. No acute abdominal or pelvic abnormality. Mera catheter in place. Subtle asymmetry or fibrosis in the perianal soft tissues just to the left of midline unchanged from 09/25/2019, otherwise negative. Electronically Signed by Jemal Elkins MD 10/06/2019 06:29 P
[2019-10-06] MEDS: NORCO, ANEXSIA 5/325MG TABLET (HYDROcodone/ACETAMINOPHEN) PO PRN ×2 (14:25→20:32)
[2019-10-06] MEDS: CIPROFLOXACIN 400 MG in IV 1 EA IV SCH (14:25)
[2019-10-06] MEDS: amLODIPine 5 MG TAB PO SCH (14:44)
[2019-10-06] MEDS: TAMSULOSIN 0.4 MG CAP PO SCH (20:32)
[2019-10-06] MEDS: FINASTERIDE 5 MG TAB PO SCH (20:32)
[2019-10-06] MEDS ORDERED: PROHANCE 279.3MG/ML 5ML VIAL (A9576) As Ordered ONE (21:43)
[2019-10-06] MEDS ORDERED: PROHANCE 279.3MG/ML 15ML VIAL (A9576) As Ordered ONE (21:43)
--- NOTE | 2019-10-06 22:27 | REPVR ---
PROCEDURE INFORMATION: Exam: MR Thoracic Spine Without and With Contrast Exam date and time: 10/06/2019 9:50 PM Age: 44 years old Clinical indication: Pain in thoracic spine; Other: Disciitis? TECHNIQUE: Imaging protocol: Multiplanar magnetic resonance images of the thoracic spine without and with intravenous contrast. Contrast material: PROHANCE; Contrast volume: 20 ml; Contrast route: IV; COMPARISON: No relevant prior studies available. FINDINGS: Vertebrae: Mild exaggerated thoracic kyphosis with normal vertebral body heights and alignments. No abnormal spinal enhancement. Marrow: Minimal degenerative T9-T10 endplate marrow signal change. Spinal cord: Normal signal. No cord compression. Discs/Spinal canal/Neural foramina: T6-T7 tiny central disc protrusion without stenosis. No abnormal disc enhancement. Soft tissues: Unremarkable. IMPRESSION: No evidence of infection or acute abnormality. Electronically signed by: Saul Loomis On 10/06/2019 22:27:26 PM
--- NOTE | 2019-10-06 22:33 | REPVR ---
PROCEDURE INFORMATION: Exam: MR Lumbar Spine Without and With Contrast. Exam date and time: 10/06/2019 9:50 PM Age: 44 years old Clinical indication: Lumbago; Patient HX: PT states RT sided lower back pain; Additional info: Disciitis? TECHNIQUE: Imaging protocol: Multiplanar magnetic resonance images of the lumbar spine without and with intravenous contrast. Contrast material: PROHANCE; Contrast volume: 20 ml; Contrast route: IV; COMPARISON: CR Spine. Lumbosacral, complete 2017-01-11 00:03 FINDINGS: Vertebrae: Normal lumbar lordosis, vertebral body heights, and alignments. No abnormal spinal enhancement. Spinal cord: Normal signal. No cord compression. L1-L2: No significant disc disease. No significant spinal canal or neural foraminal stenosis. L2-L3: No significant disc disease. No significant spinal canal or neural foraminal stenosis. L3-L4: Mild facet arthropathy, degenerative disc desiccation, disc height loss, and minimal disc bulging without stenosis. L4-L5: Mild facet arthropathy and minimal disc bulging without stenosis. L5-S1: Mild left facet arthropathy. No stenosis. Soft tissues: Unremarkable. IMPRESSION: Mild lumbar spondylosis, no evidence for spinal infection. Electronically signed by: Saul Loomis On 10/06/2019 22:33:00 PM
[2019-10-06 22:35] VITALS: BP 123/75
[2019-10-07] MEDS: CIPROFLOXACIN 400 MG in IV 1 EA IV SCH ×2 (02:17→13:52)
[2019-10-07 06:00] VITALS: BP 111/64
[2019-10-07 06:34] LABS: HEMATOCRIT 40.8 % (42.0-52.0); HEMOGLOBIN 13.9 g/dl (13.5-17.5); MEAN CORPUSCULAR HEMOGLOBIN 29.3 pg (27.0-33.0); MEAN CORPUSCULAR HGB CONC 34.1 g/dl (32.0-36.5); MEAN CORPUSCULAR VOLUME 85.9 fl (80.0-96.0); PLATELET COUNT, AUTOMATED 232 10^3/uL (150-450); RED BLOOD COUNT 4.75 10^6/uL (4.30-6.10); WHITE BLOOD COUNT 7.5 10^3/uL (4.0-10.0)
[2019-10-07] MEDS ORDERED: ONDANSETRON 4MG/2ML VIAL (J2405) IV PRN (06:45)
[2019-10-07] MEDS: NS 0.45% 1,000 ML IV SCH ×2 (06:57→18:08)
[2019-10-07] MEDS: NORCO, ANEXSIA 5/325MG TABLET (HYDROcodone/ACETAMINOPHEN) PO PRN (06:57)
[2019-10-07 07:03] LABS: BLOOD UREA NITROGEN 13 MG/DL (7-18); CALCIUM LEVEL 8.3 MG/DL (8.5-10.1); CARBON DIOXIDE LEVEL 29 MEQ/L (21-32); CHLORIDE LEVEL 99 MEQ/L (98-107); CREATININE FOR GFR 0.96 MG/DL (0.70-1.30); GLOMERULAR FILTRATION RATE > 60.0 (>60); GLUCOSE, FASTING 102 MG/DL (70-100); POTASSIUM SERUM 3.5 MEQ/L (3.5-5.1); SODIUM LEVEL 135 MEQ/L (136-145)
[2019-10-07] MEDS: ENOXAPARIN 40 MG/0.4 ML SYRINGE (J1650) SC SCH (09:20)
[2019-10-07] MEDS: amLODIPine 5 MG TAB PO SCH (09:22)
[2019-10-07 12:00] VITALS: BP 131/74
--- NOTE | 2019-10-07 12:42 | IPNPDOC ---
Subjective Date Seen The patient was seen on 10/07/19. Subjective Chief Complaint/HPI nausea improving some. Back pain persists feels hot and sweaty like he has a fever currently Constitutional: Reports: Fever Pulmonary: Denies: Dyspnea, Cough Cardiovascular: Denies: Chest Pain, Palpitations Gastrointestinal: Reports: Nausea; Denies: Vomiting, Abdominal Pain, Diarrhea, Constipation Genitourinary: Reports: Retention Musculoskeletal: Reports: Back Pain Objective Physical Examination General Exam: Positive: Alert, No Acute Distress Chest Exam: Positive: Clear to auscultation; Negative: Rales, Rhonchi, Wheezing Heart Exam: Positive: Rate Normal, Regular Rhythm Abdomen Exam: Positive: Normal bowel sounds, Soft; Negative: Tenderness Extremity Exam: Negative: Edema Other physical findings back less tender over lumbar spine Assessment /Plan Problems (1) Acute prostatitis Status: Acute Problem Text: Imaging reviewed - MRI lumbar spine negative for discititis, CT abd/pelvis neg for Xavier's gangrene Symptoms improving with IV Cipro cont [facility] for back pain for now Cont.IVF and Zofran prn nausea Encourage ambulation (2) Urinary retention Status: Acute Problem Text: Patino placed as outpatient by urology for acute urinary retention secondary to prostatitis Cont patino Cont Tamsulosin and Proscar added by Urology as outpatient (3) HTN (hypertension) Status: Chronic Response to Treatment: Stable (4) Hyperlipidemia Status: Chronic (5) JAVIER on CPAP Status: Chronic Plan/VTE VTE Prophylaxis Ordered?: Yes (Lovenox) Disposition D/C home once back pain and nausea improve VS, I&O, 24H, Fishbone Vital Signs/I&O Vital Signs Date Time Temp Pulse Resp B/P (MAP) Pulse Ox O2 Delivery O2 Flow Rate FiO2 10/07/19 09:22 92 127/74 10/07/19 07:27 18 10/07/19 06:00 97.4 96 NIPPV (BIPAP/CPAP) I&O- Last 24 Hours up to 6 AM 10/07/19 05:59 Intake Total 1140 ml Output Total 2000 ml Balance -860 ml Laboratory Data 24H LABS Laboratory Tests 2 10/06/19 12:46: Immature Granulocyte % (Auto) 1.0, Neutrophils (%) (Auto) 64.5, Lymphocytes (%) (Auto) 20.9L, Monocytes (%) (Auto) 11.7H, Eosinophils (%) (Auto) 1.6, Basophils (%) (Auto) 0.3, Neutrophils # (Auto) 6.6, Lymphocytes # (Auto) 2.1, Monocytes # (Auto) 1.2H, Eosinophils # (Auto) 0.2, Basophils # (Auto) 0.0, Nucleated Red Blood Cells % (auto) 0.0, Erythrocyte Sedimentation Rate 3, Anion Gap 8, Glomerular Filtration Rate > 60.0, Calcium Level 8.8, Total Bilirubin 0.8, Aspartate Amino Transf (AST/SGOT) 55H, Alanine Aminotransferase (ALT/SGPT) 134H, Alkaline Phosphatase 121H, Total Protein 7.5, Albumin 4.2, Albumin/Globulin Ratio 1.27 10/07/19 06:15: Nucleated Red Blood Cells % (auto) 0.0, Anion Gap 7L, Glomerular Filtration Rate > 60.0, Calcium Level 8.3L CBC/BMP Laboratory Tests 10/06/19 12:46 10/07/19 06:15 JAMIE CONROY PA-C Oct 07, 2019 12:42
[2019-10-07] MEDS: PANTOPRAZOLE 40MG INJ (PROTONIX) (C9113) IV SCH ×2 (13:51→20:17)
[2019-10-07] MEDS: TOPIRAMATE (TopAMAX) 25 MG TAB PO SCH ×2 (13:51→20:18)
[2019-10-07 14:00] VITALS: BP 127/70
[2019-10-07] MEDS: TAMSULOSIN 0.4 MG CAP PO SCH (20:17)
[2019-10-07] MEDS: ATORVASTATIN 20 MG TAB PO SCH (20:17)
[2019-10-07] MEDS: FINASTERIDE 5 MG TAB PO SCH (20:18)
[2019-10-07 22:00] VITALS: BP 129/69
[2019-10-08] MEDS: NS 0.45% 1,000 ML IV SCH ×3 (02:06→23:33)
[2019-10-08] MEDS: CIPROFLOXACIN 400 MG in IV 1 EA IV SCH ×2 (02:07→13:53)
[2019-10-08 06:00] VITALS: BP 126/69
[2019-10-08 06:05] LABS: HEMATOCRIT 38.3 % (42.0-52.0); MEAN CORPUSCULAR HEMOGLOBIN 29.5 pg (27.0-33.0); MEAN CORPUSCULAR HGB CONC 33.9 g/dl (32.0-36.5); MEAN CORPUSCULAR VOLUME 86.8 fl (80.0-96.0); PLATELET COUNT, AUTOMATED 225 10^3/uL (150-450); RED BLOOD COUNT 4.41 10^6/uL (4.30-6.10); WHITE BLOOD COUNT 8.3 10^3/uL (4.0-10.0)
[2019-10-08 06:27] LABS: BLOOD UREA NITROGEN 10 MG/DL (7-18); CALCIUM LEVEL 8.3 MG/DL (8.5-10.1); CARBON DIOXIDE LEVEL 29 MEQ/L (21-32); CHLORIDE LEVEL 101 MEQ/L (98-107); CREATININE FOR GFR 1.06 MG/DL (0.70-1.30); GLOMERULAR FILTRATION RATE > 60.0 (>60); GLUCOSE, FASTING 112 MG/DL (70-100); POTASSIUM SERUM 3.5 MEQ/L (3.5-5.1); SODIUM LEVEL 137 MEQ/L (136-145)
[2019-10-08 09:53] VITALS: BP 132/77
[2019-10-08] MEDS: PANTOPRAZOLE 40MG INJ (PROTONIX) (C9113) IV SCH ×2 (09:56→21:02)
[2019-10-08] MEDS: ENOXAPARIN 40 MG/0.4 ML SYRINGE (J1650) SC SCH (09:56)
[2019-10-08] MEDS: TOPIRAMATE (TopAMAX) 25 MG TAB PO SCH ×2 (09:56→21:04)
[2019-10-08] MEDS: amLODIPine 5 MG TAB PO SCH (09:57)
[2019-10-08] MEDS: NORCO, ANEXSIA 5/325MG TABLET (HYDROcodone/ACETAMINOPHEN) PO PRN ×2 (13:58→21:03)
[2019-10-08 14:00] VITALS: BP 133/76
--- NOTE | 2019-10-08 18:57 | IPNPDOC ---
Subjective Date Seen The patient was seen on 10/08/19. Objective Physical Examination General Exam: Positive: Alert, No Acute Distress Chest Exam: Positive: Clear to auscultation; Negative: Rales, Rhonchi, Wheezing Heart Exam: Positive: Rate Normal, Regular Rhythm Abdomen Exam: Positive: Normal bowel sounds, Soft; Negative: Tenderness Extremity Exam: Negative: Edema Assessment /Plan Problems (1) Acute prostatitis Status: Acute Problem Text: Imaging reviewed - MRI lumbar spine negative for discititis, CT abd/pelvis neg for Xavier's gangrene Symptoms improving with IV Cipro cont [place] for back pain for now Cont.IVF and Zofran prn nausea Encourage ambulation (2) Urinary retention Status: Acute Problem Text: Patino placed as outpatient by urology for acute urinary retention secondary to prostatitis Cont patino Cont Tamsulosin and Proscar added by Urology as outpatient (3) HTN (hypertension) Status: Chronic Response to Treatment: Stable (4) Hyperlipidemia Status: Chronic (5) JAVIER on CPAP Status: Chronic Plan/VTE VTE Prophylaxis Ordered?: Yes (Lovenox) VS, I&O, 24H, [facility] Vital Signs/I&O Vital Signs Date Time Temp Pulse Resp B/P (MAP) Pulse Ox O2 Delivery O2 Flow Rate FiO2 10/08/19 15:19 98.6 10/08/19 14:37 20 Room Air 10/08/19 14:00 93 133/76 (95) 96 I&O- Last 24 Hours up to 6 AM 10/08/19 05:59 Intake Total 4892 ml Output Total 5325 ml Balance -433 ml Laboratory Data 24H LABS Laboratory Tests 2 10/08/19 05:56: Nucleated Red Blood Cells % (auto) 0.0, Anion Gap 7L, Glomerular Filtration Rate > 60.0, Calcium Level 8.3L CBC/BMP Laboratory Tests 10/08/19 05:56 Niko Figueroa MD Oct 08, 2019 18:57
[2019-10-08] MEDS: ATORVASTATIN 20 MG TAB PO SCH (21:03)
[2019-10-08] MEDS: TAMSULOSIN 0.4 MG CAP PO SCH (21:04)
[2019-10-08] MEDS: FINASTERIDE 5 MG TAB PO SCH (21:04)
[2019-10-08 22:00] VITALS: BP 114/61
[2019-10-08] MEDS ORDERED: CIPROFLOXACIN 500 MG TAB PO ONE (22:00)
[2019-10-09] MEDS: CIPROFLOXACIN 500 MG TAB PO SCH ×2 (05:27→15:42)
[2019-10-09 06:00] VITALS: BP 128/73
[2019-10-09 06:28] LABS: BASO % 0.4 % (0.0-1.0); EOS # 0.3 10^3/uL (0.0-0.5); EOS % 4.2 % (0.0-3.0); HEMATOCRIT 36.3 % (42.0-52.0); HEMOGLOBIN 12.4 g/dl (13.5-17.5); LYMPH # 2.4 10^3/uL (1.5-5.0); LYMPH % 31.1 % (24.0-44.0); MEAN CORPUSCULAR HEMOGLOBIN 29.7 pg (27.0-33.0); MEAN CORPUSCULAR HGB CONC 34.2 g/dl (32.0-36.5); MEAN CORPUSCULAR VOLUME 86.8 fl (80.0-96.0); MONO # 0.7 10^3/uL (0.0-0.8); MONO % 8.7 % (0.0-5.0); NEUTROPHILS # 4.1 10^3/uL (1.5-8.5); NEUTROPHILS % 54.2 % (36.0-66.0); PLATELET COUNT, AUTOMATED 225 10^3/uL (150-450); RED BLOOD COUNT 4.18 10^6/uL (4.30-6.10); WHITE BLOOD COUNT 7.6 10^3/uL (4.0-10.0)
[2019-10-09 06:42] LABS: BLOOD UREA NITROGEN 8 MG/DL (7-18); CALCIUM LEVEL 8.3 MG/DL (8.5-10.1); CARBON DIOXIDE LEVEL 27 MEQ/L (21-32); CHLORIDE LEVEL 104 MEQ/L (98-107); CREATININE FOR GFR 1.03 MG/DL (0.70-1.30); GLOMERULAR FILTRATION RATE > 60.0 (>60); GLUCOSE, FASTING 100 MG/DL (70-100); POTASSIUM SERUM 3.8 MEQ/L (3.5-5.1); SODIUM LEVEL 138 MEQ/L (136-145)
[2019-10-09] MEDS: ENOXAPARIN 40 MG/0.4 ML SYRINGE (J1650) SC SCH (09:01)
[2019-10-09] MEDS: TOPIRAMATE (TopAMAX) 25 MG TAB PO SCH (09:02)
[2019-10-09] MEDS: PANTOPRAZOLE 40MG INJ (PROTONIX) (C9113) IV SCH (09:02)
[2019-10-09 09:03] VITALS: BP 127/62
[2019-10-09] MEDS: amLODIPine 5 MG TAB PO SCH (09:03)
[2019-10-09] MEDS: NS 0.45% 1,000 ML IV SCH (09:03)
[2019-10-09 14:00] VITALS: BP 147/77
[2019-10-09] MEDS ORDERED: CIPR-249 PO (15:18)
--- NOTE | 2019-10-09 15:20 | DS.PDOC ---
Discharge Summary General Date of Admission Oct 06, 2019 at 12:08 Discharge Summary PROCEDURES PERFORMED DURING STAY: [None]. ADMITTING DIAGNOSES: 1. . DISCHARGE DIAGNOSES: 1. . COMPLICATIONS/CHIEF COMPLAINT: Acute Prostatitis. HISTORY OF PRESENT ILLNESS: . HOSPITAL COURSE: . DISCHARGE MEDICATIONS: Please see below. ALLERGIES: Please see below. PHYSICAL EXAMINATION ON DISCHARGE: VITAL SIGNS: Please see below. GENERAL: HEENT: NECK: CARDIOVASCULAR EXAMINATION: RESPIRATORY EXAMINATION: ABDOMINAL EXAMINATION: EXTREMITIES: SKIN: NEUROLOGICAL EXAMINATION: PSYCHIATRIC EXAMINATION: LABORATORY DATA: Please see below. IMAGING: PROGNOSIS: ACTIVITY: [As tolerated]. DIET: DISCHARGE PLAN: DISPOSITION: . DISCHARGE INSTRUCTIONS: 1. . ITEMS TO FOLLOWUP ON ON OUTPATIENT: 1. . DISCHARGE CONDITION: [Stable]. TIME SPENT ON DISCHARGE: Greater than minutes. Vital Signs/I&Os Vital Signs Date Time Temp Pulse Resp B/P (MAP) Pulse Ox O2 Delivery O2 Flow Rate FiO2 10/09/19 14:00 97.8 86 18 147/77 (100) 93 Room Air I&O- Last 24 Hours up to 6 AM 10/09/19 06:00 Intake Total 5840 ml Output Total 4800 ml Balance 1040 ml Laboratory Data Labs 24H Laboratory Tests 2 10/09/19 06:09: Immature Granulocyte % (Auto) 1.4, Neutrophils (%) (Auto) 54.2, Lymphocytes (%) (Auto) 31.1, Monocytes (%) (Auto) 8.7H, Eosinophils (%) (Auto) 4.2H, Basophils (%) (Auto) 0.4, Neutrophils # (Auto) 4.1, Lymphocytes # (Auto) 2.4, Monocytes # (Auto) 0.7, Eosinophils # (Auto) 0.3, Basophils # (Auto) 0.0, Nucleated Red Blood Cells % (auto) 0.0, Anion Gap 7L, Glomerular Filtration Rate > 60.0, Calcium Level 8.3L CBC/BMP Laboratory Tests 10/09/19 06:09 Discharge Medications Scheduled Aspirin (Aspirin EC) 81 Mg Tab, 81 MG PO DAILY, (Reported) Atorvastatin Calcium (Atorvastatin Calcium) 40 Mg Tab, 40 MG PO DAILY, (Reported) Calcium Carbonate/Vitamin D3 (Calcium 600 + Vit D Tablet) 1 Each Tablet, 1 TAB PO DAILY, (Reported) Chlorthalidone (Chlorthalidone) 25 Mg Tab, 25 MG PO QAM, (Reported) Cholecalciferol (Vitamin D3) (Vitamin D3) 2,000 Unit Tablet, 2,000 UNIT PO DAILY, (Reported) Ciprofloxacin HCl (Cipro) 500 Mg Tablet, 500 MG PO BID@ Dexlansoprazole (Dexilant) 60 Mg Cap, 60 MG PO DAILY, (Reported) Famotidine (Famotidine) 20 Mg Tablet, 20 MG PO DAILY, (Reported) Finasteride (Finasteride) 5 Mg Tablet, 5 MG PO DAILY, (Reported) Gluc Cabrera/Chondro Cabrera A/Vit C/Mn (Glucosamine Chondroitin Tab) 1 Tab Tab, 1 TAB PO BID, (Reported) Lisinopril (Lisinopril) 20 Mg Tablet, 20 MG PO BID, (Reported) Potassium Chloride (Potassium Chloride) 20 Meq Tab, 20 MEQ PO DAILY, (Reported) Spironolactone (Spironolactone) 25 Mg Tab, 12.5 MG PO QHS, (Reported) Tamsulosin HCl (Flomax) 0.4 Mg Cap, 0.4 MG PO DAILY, (Reported) Topiramate (Topamax) 25 Mg Tab, 25 MG PO BID, (Reported) Allergies Coded Allergies: pineapple (Verified Allergy, Severe, throat swells, 09/25/19) Penicillins (Verified Allergy, Unknown, 09/25/19) insect venom (Verified Allergy, Unknown, deer fly, 10/06/19) metoprolol (Verified Adverse Reaction, Intermediate, drops heart rate, 09/25/19) Niko Figueroa MD Oct 09, 2019 15:20
== END 2019-10-09 15:54 | disposition home or self-care (01) | DRG 728 ==
LOC: EEVIPCON 12:08 → M MSPAV 12:08
PROVIDERS: ADMIT Family Medicine; ATTEND Family Medicine
DX: N41.0 Acute prostatitis (principal); R33.9 Retention of urine, unspecified; Z79.899 Other long term (current) drug therapy; Z79.82 Long term (current) use of aspirin; Z88.0 Allergy status to penicillin; Z91.030 Bee allergy status; Z88.8 Allergy status to other drugs, medicaments and biological substances; Z91.018 Allergy to other foods; I10 Essential (primary) hypertension; E78.5 Hyperlipidemia, unspecified; G47.33 Obstructive sleep apnea (adult) (pediatric)

== ENCOUNTER → 2019-10-19 | Outpatient (REF) | payer MEDICARE, MEDICAID ==
[~2019-10-19] MED LIST changes: +CALC600T66 PO; +CIPR-249 PO; +D3 22000 PO; +FAMO20TA PO; +FINA5TAB2 PO
[2019-10-19 16:33] LABS: HEMATOCRIT 44.9 % (42.0-52.0); HEMOGLOBIN 15.1 g/dl (13.5-17.5); MEAN CORPUSCULAR HEMOGLOBIN 29.7 pg (27.0-33.0); MEAN CORPUSCULAR HGB CONC 33.6 g/dl (32.0-36.5); MEAN CORPUSCULAR VOLUME 88.4 fl (80.0-96.0); PLATELET COUNT, AUTOMATED 268 10^3/uL (150-450); RED BLOOD COUNT 5.08 10^6/uL (4.30-6.10); WHITE BLOOD COUNT 10.3 10^3/uL (4.0-10.0)
[2019-10-19 16:56] LABS: ALBUMIN 4.8 GM/DL (3.2-5.2); ALT/SGPT 105 U/L (12-78); BILIRUBIN,TOTAL 1.1 MG/DL (0.2-1.0); BLOOD UREA NITROGEN 16 MG/DL (7-18); CALCIUM LEVEL 9.5 MG/DL (8.5-10.1); CARBON DIOXIDE LEVEL 31 MEQ/L (21-32); CHLORIDE LEVEL 102 MEQ/L (98-107); CREATININE FOR GFR 1.16 MG/DL (0.70-1.30); GLOMERULAR FILTRATION RATE > 60.0 (>60); GLUCOSE, FASTING 73 MG/DL (70-100); POTASSIUM SERUM 3.7 MEQ/L (3.5-5.1); SODIUM LEVEL 140 MEQ/L (136-145); TOTAL PROTEIN 7.8 GM/DL (6.4-8.2)
== END ==
LOC: M SFHCADAM 13:58
PROVIDERS: ATTEND Physician Assistant
DX: N41.0 Acute prostatitis (principal); R14.0 Abdominal distension (gaseous)
CPT/HCPCS: 80053; 85027; G0463

== ENCOUNTER 2019-10-28 19:42 | Emergency (ER) | payer MEDICAID, MEDICARE ==
[~2019-10-28] VITALS: Ht 165.1 cm; Wt 111.4 kg
--- NOTE | 2019-10-28 21:02 | REPVR ---
PROCEDURE INFORMATION: Exam: US Duplex Left Upper Extremity Veins, Limited Exam date and time: 10/28/2019 8:50 PM Age: 44 years old Clinical indication: Other: Palp area on lt forearm; Additional info: Swelling to forearm, R/O dvt TECHNIQUE: Imaging protocol: Real-time Duplex ultrasound of the Left Upper Extremity with 2-D hidalgo scale, color Doppler flow and spectral waveform analysis with image documentation. Limited exam focused on the left upper extremity veins. COMPARISON: US DUPLEX EXT UPPER VEINS UNILATE 09/05/2019 7:42 PM FINDINGS: Left deep veins: Unremarkable. Axillary and brachial veins are patent throughout without thrombus. Normal Doppler waveforms. Normal compressibility and/or augmentation response. Visualized internal jugular and subclavian veins are patent. Left superficial veins: Small segmental clot demonstrated in the basilic vein. Basilic vein otherwise unremarkable. Unremarkable. Visualized cephalic vein patent without thrombus. Soft tissues: Unremarkable. IMPRESSION: Small segmental superficial thrombus in the basilic vein. Otherwise unremarkable. No evidence of deep vein thrombosis. Electronically signed by: Mathew Segovia On 10/28/2019 21:03:18 PM
[2019-10-28] MEDS ORDERED: IBUP-1022 PO (21:55)
[2019-10-28 22:01] VITALS: BP 139/68
== END 2019-10-28 22:18 | disposition home or self-care (01) ==
LOC: M ED 19:42
DX: I82.612 Acute embolism and thrombosis of superficial veins of left upper extremity (principal); I51.7 Cardiomegaly; G47.33 Obstructive sleep apnea (adult) (pediatric); E78.00 Pure hypercholesterolemia, unspecified; G89.29 Other chronic pain; M54.5 Low back pain; Z88.0 Allergy status to penicillin; Z88.8 Allergy status to other drugs, medicaments and biological substances; Z91.018 Allergy to other foods; Z79.02 Long term (current) use of antithrombotics/antiplatelets; Z79.83 Long term (current) use of bisphosphonates; Z79.899 Other long term (current) drug therapy

== ENCOUNTER 2019-11-21 20:54 | Emergency (ER) | payer MEDICARE ==
[~2019-11-21] VITALS: Ht 165.1 cm; Wt 109.1 kg
[2019-11-21] MEDS ORDERED: NITROFURANTOIN (MACROBID) 100 MG CAP PO ONE (23:45)
[2019-11-21] MEDS ORDERED: PHENAZOPYRIDINE 100 MG TAB PO ONE (23:45)
[2019-11-21] MEDS ORDERED: PYRI1TAB5 PO (23:46)
[2019-11-21] MEDS ORDERED: MACR100C43 PO (23:46)
[2019-11-21 23:50] VITALS: BP 115/59
== END 2019-11-22 00:01 | disposition home or self-care (01) ==
LOC: M ED 20:54
DX: N30.00 Acute cystitis without hematuria (principal); I10 Essential (primary) hypertension; N40.1 Benign prostatic hyperplasia with lower urinary tract symptoms; K21.9 Gastro-esophageal reflux disease without esophagitis; G89.29 Other chronic pain; M54.5 Low back pain; Z88.0 Allergy status to penicillin; Z88.8 Allergy status to other drugs, medicaments and biological substances; Z91.030 Bee allergy status; Z91.018 Allergy to other foods; Z79.84 Long term (current) use of oral hypoglycemic drugs; Z79.82 Long term (current) use of aspirin; Z79.899 Other long term (current) drug therapy

== ENCOUNTER → 2020-03-10 | Outpatient (REF) | payer MEDICARE ==
[~2020-03-10] MED LIST changes: +MACR100C43 PO
== END ==
LOC: M LAB 18:03
PROVIDERS: ATTEND Physician Assistant Medical
DX: L03.031 Cellulitis of right toe (principal)

== ENCOUNTER 2020-03-16 22:51 | Emergency (ER) | payer MEDICARE ==
[~2020-03-16] VITALS: Ht 165.1 cm; Wt 109.1 kg
[2020-03-16] MEDS ORDERED: NITROGLYCERIN 0.4 MG SUBL TABLET SL PRN (23:30)
[2020-03-16 23:32] LABS: BASO % 0.5 % (0.0-1.0); EOS # 0.2 10^3/uL (0.0-0.5); EOS % 3.3 % (0.0-3.0); HEMOGLOBIN 14.5 g/dl (13.5-17.5); LYMPH # 2.6 10^3/uL (1.5-5.0); LYMPH % 38.8 % (24.0-44.0); MEAN CORPUSCULAR HEMOGLOBIN 29.6 pg (27.0-33.0); MEAN CORPUSCULAR HGB CONC 34.5 g/dl (32.0-36.5); MEAN CORPUSCULAR VOLUME 85.7 fl (80.0-96.0); MONO # 0.7 10^3/uL (0.0-0.8); MONO % 9.8 % (0.0-5.0); NEUTROPHILS # 3.1 10^3/uL (1.5-8.5); NEUTROPHILS % 47.3 % (36.0-66.0); PLATELET COUNT, AUTOMATED 214 10^3/uL (150-450); WHITE BLOOD COUNT 6.6 10^3/uL (4.0-10.0)
[2020-03-16 23:49] LABS: BLOOD UREA NITROGEN 17 MG/DL (7-18); CALCIUM LEVEL 8.4 MG/DL (8.5-10.1); CARBON DIOXIDE LEVEL 26 MEQ/L (21-32); CHLORIDE LEVEL 108 MEQ/L (98-107); CREATININE FOR GFR 1.02 MG/DL (0.70-1.30); GLOMERULAR FILTRATION RATE > 60.0 (>60); GLUCOSE, FASTING 111 MG/DL (70-100); POTASSIUM SERUM 3.5 MEQ/L (3.5-5.1); SODIUM LEVEL 140 MEQ/L (136-145)
[2020-03-17 05:15] VITALS: BP 145/72
--- NOTE | 2020-03-17 08:12 | ECGEPIP ---
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
--- NOTE | 2020-03-17 08:26 | REP ---
PORTABLE CHEST X-RAY: SINGLE VIEW. HISTORY: Chest pain. Comparison chest x-ray: September 05 1019 FINDINGS: Monitoring electrodes and oxygen delivery tubing are seen. The lungs are well inflated and free of infiltrate. The pleural angles are sharp. Heart size is borderline and unchanged from the comparison study. Pulmonary vasculature is not increased. No significant bony abnormality. IMPRESSION: No acute disease. Borderline heart size, unchanged. Electronically Signed by Jemal Elkins MD 03/17/2020 10:31 A
== END 2020-03-17 05:23 | disposition home or self-care (01) ==
LOC: EDBD 22:51 → M ED 22:51
DX: R07.9 Chest pain, unspecified (principal); J44.9 Chronic obstructive pulmonary disease, unspecified; K21.9 Gastro-esophageal reflux disease without esophagitis; I10 Essential (primary) hypertension; E78.5 Hyperlipidemia, unspecified; Z79.82 Long term (current) use of aspirin; Z79.899 Other long term (current) drug therapy; Z88.0 Allergy status to penicillin; Z88.8 Allergy status to other drugs, medicaments and biological substances; Z86.79 Personal history of other diseases of the circulatory system; Z91.038 Other insect allergy status; Z91.018 Allergy to other foods

== ENCOUNTER → 2020-05-22 | Outpatient (CLI) | payer MEDICARE ==
[2020-05-22 11:54] LABS: HEMATOCRIT 41.1 % (42.0-52.0); HEMOGLOBIN 14.1 g/dl (13.5-17.5); MEAN CORPUSCULAR HEMOGLOBIN 30.6 pg (27.0-33.0); MEAN CORPUSCULAR HGB CONC 34.3 g/dl (32.0-36.5); MEAN CORPUSCULAR VOLUME 89.2 fl (80.0-96.0); PLATELET COUNT, AUTOMATED 194 10^3/uL (150-450); RED BLOOD COUNT 4.61 10^6/uL (4.30-6.10); WHITE BLOOD COUNT 6.1 10^3/uL (4.0-10.0)
[2020-05-22 12:29] LABS: BLOOD UREA NITROGEN 18 MG/DL (7-18); CREATININE FOR GFR 1.05 MG/DL (0.70-1.30); GLUCOSE, FASTING 102 MG/DL (70-100)
[2020-05-22 12:30] LABS: CARBON DIOXIDE LEVEL 27 MEQ/L (21-32); CHLORIDE LEVEL 108 MEQ/L (98-107); GLOMERULAR FILTRATION RATE > 60.0 (>60); NT-PRO BNP 19 PG/ML (<125); POTASSIUM SERUM 4.1 MEQ/L (3.5-5.1); SODIUM LEVEL 141 MEQ/L (136-145)
--- NOTE | 2020-06-20 10:36 | REP ---
CHEST X-RAY CLINICAL: Edema. TECHNIQUE: PA and lateral. FINDINGS: Mediastinum and cardiac silhouette normal. Lung corea clear. No focal consolidation, effusion, or pneumothorax. No evidence for pulmonary vasculature congestion. Skeletal structures intact. IMPRESSION: Normal chest x-ray. MTDD
== END ==
LOC: M LAB 10:28
PROVIDERS: ATTEND Physician Assistant
DX: R60.0 Localized edema (principal)

== ENCOUNTER 2020-05-23 18:06 | Emergency (ER) | payer MEDICARE ==
[~2020-05-23] VITALS: Ht 165.1 cm; Wt 112.6 kg
[2020-05-23] MEDS ORDERED: BOOSTRIX/ADACEL VACCINE (DIPHTH/PERTUSS/ACELL/TETANUS) 0.5ML SYR IM ONE (18:30)
[2020-05-23] MEDS ORDERED: LIDOCAINE 2% MDV 20ML VIAL SC ONE (18:30)
[2020-05-23] MEDS ORDERED: NEOSPORIN OINT 0.9 GM PKT TOP ONE (19:30)
[2020-05-23 20:01] VITALS: BP 118/61
== END 2020-05-23 20:10 | disposition home or self-care (01) ==
LOC: M ED 18:06
DX: S61.213A Laceration without foreign body of left middle finger without damage to nail, initial encounter (principal); W26.8XXA Contact with other sharp object(s), not elsewhere classified, initial encounter; Y99.0 Civilian activity done for income or pay; I10 Essential (primary) hypertension; I42.9 Cardiomyopathy, unspecified; Z88.0 Allergy status to penicillin; Z88.8 Allergy status to other drugs, medicaments and biological substances; Z79.899 Other long term (current) drug therapy

== ENCOUNTER 2020-08-16 07:01 | Emergency (ER) | payer OTHER, MEDICARE ==
[~2020-08-16] VITALS: Ht 157.5 cm; Wt 116.4 kg
[2020-08-16] MEDS ORDERED: AMLO1TAB24 (07:18)
--- NOTE | 2020-08-16 08:01 | REP ---
INDICATION: trauma COMPARISON: None. TECHNIQUE: AP, lateral views of the left forearm. FINDINGS: The osseous structures and joint spaces are intact and normal. There is no evidence for acute fracture or dislocation. Surrounding soft tissues are unremarkable. No subcutaneous emphysema or radiodense foreign body. IMPRESSION: . No acute fracture or dislocation. <Electronically signed by Pedrito Martinez > 08/16/20 [id number]
--- NOTE | 2020-08-16 08:02 | REP ---
INDICATION: trauma COMPARISON: None. TECHNIQUE: AP, lateral, bilateral oblique views left wrist. FINDINGS: The carpal bones, surrounding osseous structures, soft tissues, and joint spaces are normal. There is no evidence for acute fracture or dislocation. No subcutaneous emphysema or radiodense foreign body. IMPRESSION: Normal wrist series. No acute fracture or dislocation. <Electronically signed by Pedrito Martinez > 08/16/20 [id number]
[2020-08-16 08:30] VITALS: BP 136/76
== END 2020-08-16 08:33 | disposition home or self-care (01) ==
LOC: M ED 07:01
DX: S63.502A Unspecified sprain of left wrist, initial encounter (principal); V40.5XXA Car driver injured in collision with pedestrian or animal in traffic accident, initial encounter; Y92.9 Unspecified place or not applicable; Y93.9 Activity, unspecified; Y99.9 Unspecified external cause status; I10 Essential (primary) hypertension; E78.5 Hyperlipidemia, unspecified; Z79.82 Long term (current) use of aspirin; Z79.899 Other long term (current) drug therapy; Z88.0 Allergy status to penicillin; Z88.8 Allergy status to other drugs, medicaments and biological substances; Z91.038 Other insect allergy status; Z91.018 Allergy to other foods

== ENCOUNTER → 2020-09-25 | Outpatient (CLI) | payer MEDICARE ==
[~2020-09-25] MED LIST changes: +AMLO1TAB24
[2020-09-25 07:31] LABS: ALT/SGPT 69 U/L (12-78); BILIRUBIN,TOTAL 0.7 MG/DL (0.2-1.0); BLOOD UREA NITROGEN 12 MG/DL (7-18); CALCIUM LEVEL 8.6 MG/DL (8.5-10.1); CARBON DIOXIDE LEVEL 27 MEQ/L (21-32); CHLORIDE LEVEL 107 MEQ/L (98-107); CHOLESTEROL LEVEL 191 MG/DL (<200); CHOLESTEROL RISK RATIO 7.074 (<5); CREATININE FOR GFR 1.09 MG/DL (0.70-1.30); GLOMERULAR FILTRATION RATE > 60.0 (>60); GLUCOSE, FASTING 101 MG/DL (70-100); HDL CHOLESTEROL 27 MG/DL (>40); LDL CHOLESTEROL 127 MG/DL (<100); NON-HDL-C 164 MG/DL; POTASSIUM SERUM 3.9 MEQ/L (3.5-5.1); SODIUM LEVEL 140 MEQ/L (136-145); TOTAL PROTEIN 6.8 GM/DL (6.4-8.2); TRIGLYCERIDES LEVEL 184 MG/DL (<150)
== END ==
LOC: M LAB 06:02
PROVIDERS: ATTEND Physician Assistant
DX: E78.2 Mixed hyperlipidemia (principal); I11.9 Hypertensive heart disease without heart failure

== ENCOUNTER → 2020-10-02 | Outpatient (REF) | payer MEDICARE | LOC: M SMT 16:40 | PROVIDERS: ATTEND Urology | DX: N41.9 Inflammatory disease of prostate, unspecified (principal) | CPT/HCPCS: 51702; 81002; 87086; G0463 ==

== ENCOUNTER → 2021-02-15 | Outpatient (CLI) | payer MEDICARE ==
[~2021-02-15] MED LIST changes: +BACTDSTA PO; -LISI-538 PO; +LISI10TA22 PO; -LISI10TA4 PO; +LISI20TA33 PO; -SULF1TAB93 PO
[2021-02-15 09:36] LABS: CHOLESTEROL RISK RATIO 6.448 (<5)
== END ==
LOC: M LAB 07:17
PROVIDERS: ATTEND Physician Assistant
DX: E78.2 Mixed hyperlipidemia (principal)

== ENCOUNTER 2021-02-25 20:35 | Emergency (ER) | payer MEDICARE ==
[~2021-02-25] VITALS: Ht 165.1 cm; Wt 116.8 kg
[2021-02-25] MEDS ORDERED: KETOROLAC 30 MG/ML 1ML VIAL IV ONE (21:00)
[2021-02-25 21:35] LABS: BASO % 0.3 % (0.0-1.0); EOS # 0.2 10^3/uL (0.0-0.5); EOS % 1.6 % (0.0-3.0); HEMATOCRIT 39.4 % (42.0-52.0); LYMPH # 3.1 10^3/uL (1.5-5.0); LYMPH % 27.8 % (24.0-44.0); MEAN CORPUSCULAR HGB CONC 35.5 g/dl (32.0-36.5); MEAN CORPUSCULAR VOLUME 84.4 fl (80.0-96.0); MONO # 1.3 10^3/uL (0.0-0.8); NEUTROPHILS # 6.4 10^3/uL (1.5-8.5); NEUTROPHILS % 57.6 % (36.0-66.0); PLATELET COUNT, AUTOMATED 237 10^3/uL (150-450); RED BLOOD COUNT 4.67 10^6/uL (4.30-6.10); WHITE BLOOD COUNT 11.1 10^3/uL (4.0-10.0)
--- NOTE | 2021-02-25 21:51 | REPVR ---
PROCEDURE INFORMATION: Exam: US Scrotum and Artery or Vein of the Abdominal and/or Reproductive Organs, Limited Scrotum Exam date and time: 02/25/2021 9:31 PM Age: 45 years old Clinical indication: Scrotum pain; Additional info: Pain/swelling left TECHNIQUE: Imaging protocol: Real-time ultrasound of the scrotum. Real-time duplex ultrasound scan of the arterial or venous flow with hidalgo scale, color Doppler flow and spectral waveform analysis with image documentation. Limited Duplex exam focused of the scrotum. Duplex images required to evaluate for torsion and other vascular conditions. COMPARISON: Scrotal, US 09/25/2019 10:10 PM FINDINGS: Right testicle: The right testicle is normal in appearance. No testicular mass or lesion is noted. The right testicle measures 4.8 cm x 2.6 cm x 2.8 cm. The color Doppler flow and spectral waveforms in the right testicle are within normal limits without evidence for testicular torsion or orchitis. Left testicle: The left testicle is normal in appearance. No testicular mass or lesion is noted. The left testicle measures 5.2 cm x 3 cm x 3.1 cm. The color Doppler flow and spectral waveforms in the left testicle are within normal limits without evidence for testicular torsion or orchitis. Epididymides: The epididymi are normal in appearance. No evidence for epididymitis. Scrotum: There are small bilateral hydroceles. IMPRESSION: 1. Normal testicles. No testicular torsion, orchitis, or epididymitis. 2. Small bilateral hydroceles. Electronically signed by: Alexander Santana On 02/25/2021 21:51:25 PM
[2021-02-25 22:54] LABS: BLOOD UREA NITROGEN 15 MG/DL (7-18); CALCIUM LEVEL 8.2 MG/DL (8.5-10.1); CARBON DIOXIDE LEVEL 29 MEQ/L (21-32); CHLORIDE LEVEL 100 MEQ/L (98-107); GLOMERULAR FILTRATION RATE > 60.0 (>60); GLUCOSE, FASTING 91 MG/DL (70-100); POTASSIUM SERUM 3.6 MEQ/L (3.5-5.1); SODIUM LEVEL 136 MEQ/L (136-145)
[2021-02-25] MEDS ORDERED: ISOVUE-370 76% 100ML VIAL As Ordered ONE (22:56)
--- NOTE | 2021-02-25 23:33 | REPVR ---
PROCEDURE INFORMATION: Exam: CT Abdomen And Pelvis With Contrast Exam date and time: 02/25/2021 11:05 PM Age: 45 years old Clinical indication: Abdominal pain; Localized; Left lower quadrant (llq); Additional info: Llq/left groin pain TECHNIQUE: Imaging protocol: Computed tomography of the abdomen and pelvis with contrast. Radiation optimization: All CT scans at this facility use at least one of these dose optimization techniques: automated exposure control; mA and/or kV adjustment per patient size (includes targeted exams where dose is matched to clinical indication); or iterative reconstruction. Contrast material: ISOVUE 370; Contrast volume: 100 ml; Contrast route: INTRAVENOUS (IV); COMPARISON: 1. CT ABD PELVIS W/O CONTRAST 10/06/2019 1:02 PM 2. Scrotal, US 02/25/2021 9:23:33 PM FINDINGS: Lungs: There is mild dependent atelectasis in the right lower lobe. There is a 2 mm calcified granuloma in the left lower lobe that is unchanged compared to the prior CT abdomen and pelvis on 10/06/2019. The lungs were not fully imaged. Heart: No cardiomegaly or pericardial effusion. Mediastinal space: There is a small sliding hiatal hernia. Liver: The attenuation of the liver is more than 40 Hounsfield units lower in attenuation compared to the spleen, which is compatible with fatty liver infiltration. No liver lesion. The contour of the liver is smooth. The liver is enlarged and in craniocaudal dimension and at the level of the right midclavicular line, the liver measures 16.1 cm. Gallbladder and bile ducts: No calcified gallstones are noted. No gallbladder wall thickening, pericholecystic fluid, or pericholecystic inflammatory changes are identified. No dilation of the bile ducts is noted. No calcified stones are seen in the common bile duct. Pancreas: Normal. No dilation of the main pancreatic duct is noted. Spleen: No splenic lesion is noted. The spleen is enlarged and measures 13.3 cm. Adrenal glands: Normal. No adrenal mass is noted. Kidneys and ureters: The kidneys are normal in appearance. No renal lesion is noted. No stones are noted in the kidneys or ureters. There is no hydronephrosis or hydroureter. No CT evidence for pyelonephritis. Stomach and bowel: The small bowel is unremarkable. There is no evidence for a bowel obstruction, diverticulosis, diverticulitis, colitis, perforated viscus, pneumatosis intestinalis, intussusception, or volvulus. There is a moderate amount of formed stool in the colon. Appendix: The appendix has been removed. Intraperitoneal space: Unremarkable. No fluid collection. No free air. Retroperitoneal space: No fluid collection. No mass. Vasculature: The abdominal aorta is patent, normal in caliber, and there is no dissection. The iliac arteries, common femoral arteries, renal arteries, celiac artery, superior mesenteric artery, and inferior mesenteric artery are patent. The portal veins, splenic vein, superior mesenteric vein, inferior mesenteric vein, and renal veins are patent. Lymph nodes: No enlarged lymph nodes. Urinary bladder: The partially distended urinary bladder is unremarkable. No stones or masses are seen in the bladder. Reproductive: The prostate gland and seminal vesicles are unremarkable. There are small clips or calcifications in the scrotal sacs bilaterally, which may be secondary to a vasectomy or represent scrotoliths. There are small bilateral hydroceles. Bones/joints: There is no acute fracture or dislocation. There is an old healed fracture deformity of the right transverse process of L2. Soft tissues: There is a small fat containing umbilical hernia, which is similar in appearance compared to the prior CT abdomen and pelvis on 10/06/2019. No inguinal hernia noted. IMPRESSION: 1. No acute findings in the abdomen or pelvis. 2. Moderate amount of formed stool in the colon. No bowel obstruction. 3. Enlarged, fatty liver. 4. Splenomegaly. 5. Small fat containing umbilical hernia, which is similar in appearance compared to the prior CT abdomen and pelvis on 10/06/2019. 6. Small sliding hiatal hernia. Electronically signed by: Alexander Santana On 02/25/2021 23:33:35 PM
[2021-02-26 00:29] VITALS: BP 116/53
--- NOTE | 2021-02-26 06:36 | ED PDOC ---
Post-Departure Follow-Up phil wright faxed formal report of ct abd/p for fu Ministerio Mascorro MD Feb 26, 2021 06:36
--- NOTE | 2021-02-26 06:37 | ED PDOC ---
Post-Departure Follow-Up dr contreras faxed formal report of scrotal us for fu Ministerio Mascorro MD Feb 26, 2021 06:36
== END 2021-02-26 00:30 | disposition home or self-care (01) ==
LOC: M ED 20:35
DX: N50.812 Left testicular pain (principal); N43.3 Hydrocele, unspecified; K76.0 Fatty (change of) liver, not elsewhere classified; K44.0 Diaphragmatic hernia with obstruction, without gangrene; I10 Essential (primary) hypertension; E78.5 Hyperlipidemia, unspecified; G43.909 Migraine, unspecified, not intractable, without status migrainosus; G47.33 Obstructive sleep apnea (adult) (pediatric); M54.5 Low back pain; Z88.0 Allergy status to penicillin; Z88.8 Allergy status to other drugs, medicaments and biological substances; Z79.899 Other long term (current) drug therapy
CPT/HCPCS: 74177; 76870; 80048; 81001; 85025; 96374; 99284; J1885; Q9967

== ENCOUNTER → 2021-02-28 | Outpatient (CLI) | payer MEDICARE ==
[~2021-02-28] MED LIST changes: +E-Z-GAS II EFFERVESCENT PACKET (SODIUM BICARB./CITRIC ACID/SIMETHICONE) As Ordered ONE; +E-Z-HD 98% w/w 340GM SUSP BTL As Ordered ONE; +E-Z-PAQUE 96% w/w SUSP 176GM BTL As Ordered ONE
--- NOTE | 2021-02-28 17:05 | REP ---
INDICATION: DYSPHAGIA, GERD. COMPARISON: None TECHNIQUE: This procedure was performed by Fawn Wilson [facility], under the direct supervision of Dr. Wren. Images were reviewed with Dr. Wren prior to dictation. Liquid barium and gas producing crystals were given in the erect position, as well as liquid barium in the prone oblique position in order to perform a double contrast esophagram examination. FINDINGS: A single view PA chest x-ray is submitted as a manager care film. The superior mediastinal structures are midline. The heart size is within normal limits. The lungs are clear. The oral and pharyngeal stages of deglutition were unremarkable. Esophageal transport is prompt and efficient and there is no evidence of esophagitis, stricture, or mucosal ring. There is evidence of a small hiatal hernia. There was no gastroesophageal reflux noted . IMPRESSION: 1. Small hiatal hernia. 0.2 minutes of fluoroscopy time was utilized for this procedure. Some fluoroscopic images are performed with last image hold technology. These images require no additional radiation. <Electronically signed by Fawn Wilson > 02/28/21 1620 <Electronically signed by Obinna Wren > 02/28/21 1701
== END ==
LOC: M RAD 09:13
PROVIDERS: ATTEND Physician Assistant Medical
DX: R13.10 Dysphagia, unspecified (principal); K21.9 Gastro-esophageal reflux disease without esophagitis

== ENCOUNTER → 2021-05-09 | Outpatient (CLI) | payer MEDICARE ==
[~2021-05-09] MED LIST changes: +ATOR80TA59; +CALCCAP4 PO; +D31000TA2 PO; -E-Z-GAS II EFFERVESCENT PACKET (SODIUM BICARB./CITRIC ACID/SIMETHICONE) As Ordered ONE; -E-Z-HD 98% w/w 340GM SUSP BTL As Ordered ONE; -E-Z-PAQUE 96% w/w SUSP 176GM BTL As Ordered ONE; +FAMO40TA3; +LORA-674
== END ==
LOC: M LABSMTC 10:47
PROVIDERS: ATTEND Anesthesiology
DX: Z01.812 Encounter for preprocedural laboratory examination (principal)

== ENCOUNTER 2021-05-14 13:15 | Day surgery (SDC) | payer MEDICARE ==
[~2021-05-14] VITALS: Ht 167.6 cm; Wt 116.5 kg
[~2021-05-14 13:15] MED LIST changes: +NS 1,000 ML IV ONE
[2021-05-14] MEDS ORDERED: fentaNYL 100 MCG/2 ML INJECTION (J3010) As Ordered ONE (16:18)
[2021-05-14] MEDS ORDERED: LIDOCAINE 2% 100MG/5ML SDV (FOR ANES.) As Ordered ONE (16:30)
[2021-05-14] MEDS ORDERED: propofoL 200 MG/20 ML VIAL As Ordered ONE (16:30)
--- NOTE | 2021-05-14 16:41 | ROOR ---
Patient Name: Maciel Rojas Procedure Date: 05/14/2021 4:15 PM Date of : 1975 Age: 45 Room: [facility] Gender: Male Note Status: Finalized Procedure: Upper GI endoscopy Indications: Epigastric abdominal pain, Dysphagia, Heartburn Providers: Saul Mooney MD Referring MD: Miquel Fierro MD Requesting Provider: Medicines: Monitored Anesthesia Care Complications: No immediate complications. Procedure: Pre-Anesthesia Assessment: - The heart rate, respiratory rate, oxygen saturations, blood pressure, adequacy of pulmonary ventilation, and response to care were monitored throughout the procedure. The Endoscope was introduced through the mouth, and advanced to the second part of duodenum. The upper GI endoscopy was accomplished without difficulty. The patient tolerated the procedure well. Findings: Non-severe esophagitis was found at the gastroesophageal junction. Biopsies were taken with a cold forceps for histology. A medium-sized hiatal hernia was present. The exam of the stomach was otherwise normal. This was biopsied with a cold forceps for Helicobacter pylori testing The examined duodenum was normal. No endoscopic abnormality was evident in the esophagus to explain the patient's complaint of dysphagia. It was decided, however, to proceed with dilation of the entire esophagus. The scope was withdrawn. Dilation was performed with a Shepherd dilator with mild resistance at 54 Fr. The dilation site was examined following endoscope reinsertion and showed no change. Impression: - Minimal erythema/esophagitis at GE junction. Biopsied. - No definite endoscopic esophageal abnormality to explain patient's dysphagia. Esophagus dilated empirically with a 54F Shepherd dilator. - Medium-sized sliding hiatal hernia. - The stomach is otherwise normal. Biopsied. - Normal examined duodenum. Recommendation: - Continue present medications. - Observe patient's clinical course. - Depending on results from medication and life style changes, Consideration may be given to a referral for antireflux surgery. Procedure Code(s): --- Professional --- 68690, Esophagogastroduodenoscopy, flexible, transoral; with biopsy, single or multiple 20677, Dilation of esophagus, by unguided sound or bougie, single or multiple passes Diagnosis Code(s): --- Professional --- R12, Heartburn R10.13, Epigastric pain R13.10, Dysphagia, unspecified K20.9, Esophagitis, unspecified K44.9, Diaphragmatic hernia without obstruction or gangrene CPT copyright 2019 [employer]. All rights reserved. The codes documented in this report are preliminary and upon skirt clipper review may be revised to meet current compliance requirements. Saul Mooney MD Saul Mooney MD 05/14/2021 4:41:28 PM Electronically signed by Saul Mooney MD Number of Addenda: 0 Note Initiated On: 05/14/2021 4:15 PM Estimated Blood Loss: Estimated blood loss: none. Estimated blood loss: none.
[2021-05-14 17:00] VITALS: BP 140/82
== END 2021-05-14 17:10 | disposition home or self-care (01) ==
LOC: M OPP 13:15
PROVIDERS: ATTEND Internal Medicine Gastroenterology
DX: K20.90 Esophagitis, unspecified without bleeding (principal); K44.9 Diaphragmatic hernia without obstruction or gangrene; R13.10 Dysphagia, unspecified; R10.13 Epigastric pain; Z79.82 Long term (current) use of aspirin; Z79.899 Other long term (current) drug therapy; Z88.0 Allergy status to penicillin; Z88.8 Allergy status to other drugs, medicaments and biological substances; Z91.018 Allergy to other foods; Z91.038 Other insect allergy status
CPT/HCPCS: 43239; 43450; 88305; J3010

== ENCOUNTER → 2021-06-19 | Outpatient (REF) | payer MEDICARE ==
[~2021-06-19] MED LIST changes: -NS 1,000 ML IV ONE
[2021-06-19 18:14] LABS: APPEARANCE, URINE CLEAR (CLEAR); BACTERIA, URINE AUTO NEGATIVE (NEGATIVE); BILIRUBIN, URINE AUTO NEGATIVE (NEGATIVE); BLOOD, URINE BLOOD NEGATIVE (NEGATIVE); COLOR, URINE YELLOW (YELLOW); GLUCOSE, URINE (UA) AUTO NEGATIVE (NEGATIVE); KETONE, URINE AUTO NEGATIVE (NEGATIVE); LEUKOCYTE ESTERASE, URINE AUTO NEGATIVE (NEGATIVE); NITRITE, URINE AUTO NEGATIVE (NEGATIVE); PROTEIN, URINE AUTO NEGATIVE (NEGATIVE); RBC, URINE AUTO 0 /HPF (0-3); SPECIFIC GRAVITY URINE AUTO 1.004 (1.002-1.035); SQUAMOUS EPITHELIAL CELL UR AU 0 /HPF (0-6); UROBILINOGEN, URINE AUTO 0.2 mg/dL (0.0-2.0); WBC, URINE AUTO 0 /HPF (0-3)
== END ==
LOC: M SMT 17:47
PROVIDERS: ATTEND Nurse Practitioner Women's Health
DX: R33.9 Retention of urine, unspecified (principal)
CPT/HCPCS: 51702; 51798; 81001; 87086; G0463

== ENCOUNTER → 2021-07-16 | Outpatient (REF) | payer MEDICARE ==
[2021-07-17 13:44] LABS: APPEARANCE, URINE HAZY (CLEAR); BACTERIA, URINE AUTO NEGATIVE (NEGATIVE); BILIRUBIN, URINE AUTO NEGATIVE (NEGATIVE); BLOOD, URINE BLOOD NEGATIVE (NEGATIVE); COLOR, URINE YELLOW (YELLOW); GLUCOSE, URINE (UA) AUTO NEGATIVE (NEGATIVE); KETONE, URINE AUTO NEGATIVE (NEGATIVE); LEUKOCYTE ESTERASE, URINE AUTO 3+ (NEGATIVE); NITRITE, URINE AUTO NEGATIVE (NEGATIVE); PROTEIN, URINE AUTO NEGATIVE (NEGATIVE); RBC, URINE AUTO 1 /HPF (0-3); SPECIFIC GRAVITY URINE AUTO 1.011 (1.002-1.035); SQUAMOUS EPITHELIAL CELL UR AU 5 /HPF (0-6); UROBILINOGEN, URINE AUTO 0.2 mg/dL (0.0-2.0); WBC, URINE AUTO 11 /HPF (0-3)
== END ==
LOC: M SMT 12:50
PROVIDERS: ATTEND Nurse Practitioner Women's Health
DX: R39.89 Other symptoms and signs involving the genitourinary system (principal)

== ENCOUNTER → 2021-07-19 | Outpatient (REF) | payer MEDICARE ==
[2021-07-19 13:58] LABS: APPEARANCE, URINE CLEAR (CLEAR); BACTERIA, URINE AUTO NEGATIVE (NEGATIVE); BILIRUBIN, URINE AUTO NEGATIVE (NEGATIVE); BLOOD, URINE BLOOD NEGATIVE (NEGATIVE); COLOR, URINE STRAW (YELLOW); GLUCOSE, URINE (UA) AUTO NEGATIVE (NEGATIVE); KETONE, URINE AUTO NEGATIVE (NEGATIVE); LEUKOCYTE ESTERASE, URINE AUTO NEGATIVE (NEGATIVE); NITRITE, URINE AUTO NEGATIVE (NEGATIVE); PROTEIN, URINE AUTO NEGATIVE (NEGATIVE); RBC, URINE AUTO 0 /HPF (0-3); SPECIFIC GRAVITY URINE AUTO 1.002 (1.002-1.035); SQUAMOUS EPITHELIAL CELL UR AU 0 /HPF (0-6); UROBILINOGEN, URINE AUTO 0.2 mg/dL (0.0-2.0); WBC, URINE AUTO 0 /HPF (0-3)
== END ==
LOC: M SFHCWAGY 13:10
PROVIDERS: ATTEND Urology
DX: R33.9 Retention of urine, unspecified (principal)

== ENCOUNTER 2021-08-28 11:18 | Outpatient (CLI) | payer MEDICARE ==
[~2021-08-28] VITALS: Ht 167.6 cm; Wt 119.0 kg
[~2021-08-28 11:18] MED LIST changes: +ALBUTEROL 90 MCG/ACT 8GM HFA INHALER INH PRN; +ALBUTEROL SULFATE 2.5 MG/0.5 ML INH NEB SOLN INH PRN; +EPINEPHrine INJ 1 MG/ML 1ML AMP IM PRN; +NS 1,000 ML IV SCH; +diphenhydrAMINE 50MG/ML VIAL (J1200) IV PRN; +methylPREDNISolone 125MG 2ML VIAL IV PRN
[2021-08-28] MEDS ORDERED: CASIRIVIMAB (REGN10933) 600 MG, IMDEVIMAB (REGN10987) 600 MG in NS 250 ML IV ONE (11:30)
[2021-08-28 11:32] VITALS: BP 115/57
[2021-08-28 12:02] VITALS: BP 131/60
[2021-08-28 12:32] VITALS: BP 132/58
[2021-08-28 13:32] VITALS: BP 123/58
== END 2021-08-28 13:32 | disposition home or self-care (01) ==
LOC: M OPCLI4PR 11:18
PROVIDERS: ATTEND Physician Assistant
DX: U07.1 COVID-19 (principal); Z88.0 Allergy status to penicillin; Z88.8 Allergy status to other drugs, medicaments and biological substances

== ENCOUNTER → 2022-04-06 | Outpatient (CLI) | payer MEDICARE ==
[~2022-04-06] MED LIST changes: -ALBUTEROL 90 MCG/ACT 8GM HFA INHALER INH PRN; -ALBUTEROL SULFATE 2.5 MG/0.5 ML INH NEB SOLN INH PRN; -D31000TA2 PO; -EPINEPHrine INJ 1 MG/ML 1ML AMP IM PRN; -GLUCTAB6 PO; +GLUCTAB7 PO; -NS 1,000 ML IV SCH; +VITA100093 PO; -diphenhydrAMINE 50MG/ML VIAL (J1200) IV PRN; -methylPREDNISolone 125MG 2ML VIAL IV PRN
== END ==
LOC: M LABSMTC 10:22
PROVIDERS: ATTEND Internal Medicine Gastroenterology
DX: Z20.828 Contact with and (suspected) exposure to other viral communicable diseases (principal); Z11.59 Encounter for screening for other viral diseases

== ENCOUNTER → 2022-04-24 | Outpatient (REF) | payer MEDICARE ==
[2022-04-24 13:58] LABS: APPEARANCE, URINE CLEAR (CLEAR); BACTERIA, URINE AUTO NEGATIVE (NEGATIVE); BILIRUBIN, URINE AUTO NEGATIVE (NEGATIVE); BLOOD, URINE BLOOD 1+ (NEGATIVE); COLOR, URINE STRAW (YELLOW); GLUCOSE, URINE (UA) AUTO NEGATIVE (NEGATIVE); KETONE, URINE AUTO NEGATIVE (NEGATIVE); LEUKOCYTE ESTERASE, URINE AUTO NEGATIVE (NEGATIVE); NITRITE, URINE AUTO NEGATIVE (NEGATIVE); PROTEIN, URINE AUTO NEGATIVE (NEGATIVE); RBC, URINE AUTO 0 /HPF (0-3); SPECIFIC GRAVITY URINE AUTO 1.003 (1.002-1.035); SQUAMOUS EPITHELIAL CELL UR AU 0 /HPF (0-6); UROBILINOGEN, URINE AUTO 0.2 mg/dL (0.0-2.0); WBC, URINE AUTO 0 /HPF (0-3)
== END ==
LOC: M SMT 13:25
PROVIDERS: ATTEND Urology
DX: R31.0 Gross hematuria (principal)

== ENCOUNTER → 2022-05-05 | Outpatient (CLI) | payer MEDICARE ==
[2022-05-05 07:52] LABS: BASO % 0.3 % (0.0-1.0); EOS # 0.1 10^3/uL (0.0-0.5); EOS % 1.9 % (0.0-3.0); LYMPH # 2.3 10^3/uL (1.5-5.0); LYMPH % 32.6 % (24.0-44.0); MEAN CORPUSCULAR HEMOGLOBIN 29.7 pg (27.0-33.0); MEAN CORPUSCULAR HGB CONC 34.1 g/dl (32.0-36.5); MEAN CORPUSCULAR VOLUME 86.9 fl (80.0-96.0); MONO # 0.6 10^3/uL (0.0-0.8); MONO % 8.9 % (2.0-8.0); NEUTROPHILS # 3.9 10^3/uL (1.5-8.5); NEUTROPHILS % 55.7 % (36.0-66.0); PLATELET COUNT, AUTOMATED 200 10^3/uL (150-450); RED BLOOD COUNT 4.72 10^6/uL (4.30-6.10); WHITE BLOOD COUNT 6.9 10^3/uL (4.0-10.0)
[2022-05-05 08:30] LABS: ALBUMIN 3.6 GM/DL (3.2-5.2); BILIRUBIN,DIRECT 0.2 MG/DL (0.0-0.2); BILIRUBIN,TOTAL 0.8 MG/DL (0.2-1.0); TOTAL PROTEIN 6.7 GM/DL (6.4-8.2)
== END ==
LOC: M LAB 07:15
PROVIDERS: ATTEND Podiatrist Foot & Ankle Surgery
DX: B35.1 Tinea unguium (principal)

== ENCOUNTER → 2022-05-26 | Outpatient (CLI) | payer MEDICARE ==
[~2022-05-26] MED LIST changes: -AMLO1TAB24; +AMLO1TAB24 PO; -ATOR80TA59; +ATOR80TA59 PO; -LORA-674
== END ==
LOC: M LABSMTC 09:40
PROVIDERS: ATTEND Anesthesiology
DX: Z01.818 Encounter for other preprocedural examination (principal); Z11.52 Encounter for screening for COVID-19

== ENCOUNTER 2022-05-28 11:01 | Day surgery (SDC) | payer MEDICARE ==
[~2022-05-28] VITALS: Ht 165.1 cm; Wt 120.7 kg
[~2022-05-28 11:01] MED LIST changes: +BUPIVACAINE HCL 0.5% 30ML VIAL As Ordered ONE; +LIDOCAINE 1% SDV 30ML VIAL As Ordered ONE
[2022-05-28] MEDS ORDERED: LR 1,000 ML IV SCH (11:40)
[2022-05-28] MEDS ORDERED: MIDAZOLAM INJ 2MG/2ML VIAL (J2250 PER 1MG) As Ordered ONE (11:52)
[2022-05-28] MEDS ORDERED: fentaNYL 100 MCG/2 ML INJECTION As Ordered ONE (11:52)
[2022-05-28] MEDS ORDERED: propofoL 200 MG/20 ML VIAL As Ordered ONE (11:52)
[2022-05-28] MEDS ORDERED: LIDOCAINE 2% 100MG/5ML SDV (FOR ANES.) As Ordered ONE (11:52)
[2022-05-28] MEDS ORDERED: CLINDAMYCIN 900 MG in IV 1 EA IV ONE (12:25)
[2022-05-28 14:10] VITALS: BP 112/55
== END 2022-05-28 14:12 | disposition home or self-care (01) ==
LOC: M SDC 11:01
PROVIDERS: ATTEND Podiatrist Foot & Ankle Surgery
DX: M67.472 Ganglion, left ankle and foot (principal); Z91.030 Bee allergy status; Z88.0 Allergy status to penicillin; I10 Essential (primary) hypertension; K21.9 Gastro-esophageal reflux disease without esophagitis; G43.909 Migraine, unspecified, not intractable, without status migrainosus; G47.33 Obstructive sleep apnea (adult) (pediatric); N40.0 Benign prostatic hyperplasia without lower urinary tract symptoms; Z79.899 Other long term (current) drug therapy
CPT/HCPCS: 28043; 88304; J2250; J3010

== ENCOUNTER → 2022-07-21 | Outpatient (REF) | payer MEDICARE ==
[~2022-07-21] MED LIST changes: -BUPIVACAINE HCL 0.5% 30ML VIAL As Ordered ONE; -LIDOCAINE 1% SDV 30ML VIAL As Ordered ONE
== END ==
LOC: M SFHCADAM 15:30
PROVIDERS: ATTEND Physician Assistant
DX: R60.0 Localized edema (principal)

== ENCOUNTER → 2022-07-21 | Outpatient (CLI) | payer MEDICARE ==
[2022-07-21 17:40] LABS: BASO % 0.4 % (0.0-1.0); EOS # 0.2 10^3/uL (0.0-0.5); EOS % 1.5 % (0.0-3.0); HEMATOCRIT 44.1 % (42.0-52.0); HEMOGLOBIN 15.2 g/dl (13.5-17.5); LYMPH # 3.3 10^3/uL (1.5-5.0); LYMPH % 33.2 % (24.0-44.0); MEAN CORPUSCULAR HEMOGLOBIN 28.9 pg (27.0-33.0); MEAN CORPUSCULAR HGB CONC 34.5 g/dl (32.0-36.5); MEAN CORPUSCULAR VOLUME 83.8 fl (80.0-96.0); MONO # 0.9 10^3/uL (0.0-0.8); MONO % 9.5 % (2.0-8.0); NEUTROPHILS # 5.4 10^3/uL (1.5-8.5); NEUTROPHILS % 54.8 % (36.0-66.0); PLATELET COUNT, AUTOMATED 238 10^3/uL (150-450); RED BLOOD COUNT 5.26 10^6/uL (4.30-6.10); WHITE BLOOD COUNT 9.8 10^3/uL (4.0-10.0)
[2022-07-21 18:17] LABS: ALBUMIN 4.2 GM/DL (3.2-5.2); ALT/SGPT 109 U/L (12-78); BILIRUBIN,TOTAL 0.8 MG/DL (0.2-1.0); BLOOD UREA NITROGEN 13 MG/DL (7-18); CALCIUM LEVEL 9.4 MG/DL (8.5-10.1); CARBON DIOXIDE LEVEL 27 MEQ/L (21-32); CHLORIDE LEVEL 98 MEQ/L (98-107); CREATININE FOR GFR 0.98 MG/DL (0.70-1.30); GLOMERULAR FILTRATION RATE > 60.0 (>60); GLUCOSE, FASTING 118 MG/DL (70-100); NT-PRO BNP 8 PG/ML (<125); POTASSIUM SERUM 3.7 MEQ/L (3.5-5.1); SODIUM LEVEL 132 MEQ/L (136-145); TOTAL PROTEIN 7.5 GM/DL (6.4-8.2)
== END ==
LOC: M RAD 16:27
PROVIDERS: ATTEND Physician Assistant
DX: R60.0 Localized edema (principal)

== ENCOUNTER → 2022-08-28 | Outpatient (CLI) | payer OTHER, MEDICARE | LOC: M RAD 16:31 | PROVIDERS: ATTEND Physician Assistant | DX: S69.91XA Unspecified injury of right wrist, hand and finger(s), initial encounter (principal); M79.644 Pain in right finger(s); X58.XXXA Exposure to other specified factors, initial encounter; Y92.9 Unspecified place or not applicable ==

== ENCOUNTER → 2022-12-19 | Outpatient (REF) | payer MEDICARE ==
[2022-12-19 14:38] LABS: BASO % 0.5 % (0.0-1.0); EOS # 0.2 10^3/uL (0.0-0.5); EOS % 1.8 % (0.0-3.0); HEMATOCRIT 44.8 % (42.0-52.0); LYMPH # 2.5 10^3/uL (1.5-5.0); LYMPH % 29.8 % (24.0-44.0); MEAN CORPUSCULAR HEMOGLOBIN 29.8 pg (27.0-33.0); MEAN CORPUSCULAR HGB CONC 33.5 g/dl (32.0-36.5); MEAN CORPUSCULAR VOLUME 89.1 fl (80.0-96.0); MONO # 0.7 10^3/uL (0.0-0.8); MONO % 8.8 % (2.0-8.0); NEUTROPHILS # 4.8 10^3/uL (1.5-8.5); NEUTROPHILS % 58.4 % (36.0-66.0); PLATELET COUNT, AUTOMATED 220 10^3/uL (150-450); RED BLOOD COUNT 5.03 10^6/uL (4.30-6.10); WHITE BLOOD COUNT 8.3 10^3/uL (4.0-10.0)
[2022-12-19 14:57] LABS: CREATININE, URINE 29.4 MG/DL; MALB URINE SIEMENS < 3.0 MG/L; MAU/CREAT RATIO 10.2 MCG/MG (0.0-30.0)
[2022-12-19 15:03] LABS: CHOLESTEROL RISK RATIO 5.52 (<5); FREE T4 1.1 NG/DL (0.89-1.76); HDL CHOLESTEROL 31.7 MG/DL (>40); LDL CHOLESTEROL 103.9 MG/DL (<100); NON-HDL-C 143.3 MG/DL; THYROID STIMULATING HORMONE 1.491 uIU/ML (0.55-4.78)
[2022-12-19 15:10] LABS: FOLATE 9.9 NG/ML (>5.4)
[2022-12-19 15:18] LABS: HEMOGLOBIN A1c 6.2 % (4.0-6.0)
== END ==
LOC: M SFHCADAM 09:31
PROVIDERS: ATTEND Physician Assistant
DX: I10 Essential (primary) hypertension (principal); E78.2 Mixed hyperlipidemia; K21.9 Gastro-esophageal reflux disease without esophagitis; G43.909 Migraine, unspecified, not intractable, without status migrainosus; E55.9 Vitamin D deficiency, unspecified; R33.9 Retention of urine, unspecified; Z12.11 Encounter for screening for malignant neoplasm of colon; R73.03 Prediabetes; G47.33 Obstructive sleep apnea (adult) (pediatric); Z99.89 Dependence on other enabling machines and devices; Z68.41 Body mass index [BMI] 40.0-44.9, adult

== ENCOUNTER → 2023-01-07 | Outpatient (CLI) | payer MEDICARE ==
[2023-01-07 18:16] LABS: ALBUMIN 3.9 G/DL (3.2-5.2); ALKALINE PHOSPHATASE 102 U/L (46-116); ALT/SGPT 118 U/L (7.0-40); AST/SGOT 28 U/L (<34); BILIRUBIN,TOTAL 0.6 MG/DL (0.3-1.2); BLOOD UREA NITROGEN 19 MG/DL (9-23); CALCIUM LEVEL 8.8 MG/DL (8.5-10.1); CARBON DIOXIDE LEVEL 23 MMOL/L (20-31); CHLORIDE LEVEL 106 MMOL/L (98-107); CREATININE FOR GFR 0.89 MG/DL (0.70-1.30); GLOMERULAR FILTRATION RATE > 60.0 (>60); GLUCOSE, FASTING 140 MG/DL (60-100); SODIUM LEVEL 139 MMOL/L (136-145); TOTAL PROTEIN 6.6 G/DL (5.7-8.2)
== END ==
LOC: M RAD 17:06
PROVIDERS: ATTEND Physician Assistant
DX: I11.9 Hypertensive heart disease without heart failure (principal); R60.0 Localized edema

== ENCOUNTER 2023-01-08 21:20 | Emergency (ER) | payer MEDICARE ==
[~2023-01-08] VITALS: Ht 167.6 cm; Wt 99.1 kg
[2023-01-08 22:45] LABS: BASO % 0.4 % (0.0-1.0); EOS # 0.2 10^3/uL (0.0-0.5); EOS % 1.8 % (0.0-3.0); HEMATOCRIT 45.5 % (42.0-52.0); HEMOGLOBIN 15.7 g/dl (13.5-17.5); LYMPH # 3.2 10^3/uL (1.5-5.0); LYMPH % 32.7 % (24.0-44.0); MEAN CORPUSCULAR HGB CONC 34.5 g/dl (32.0-36.5); MEAN CORPUSCULAR VOLUME 86.8 fl (80.0-96.0); MONO # 0.9 10^3/uL (0.0-0.8); MONO % 9.5 % (2.0-8.0); NEUTROPHILS # 5.3 10^3/uL (1.5-8.5); PLATELET COUNT, AUTOMATED 237 10^3/uL (150-450); RED BLOOD COUNT 5.24 10^6/uL (4.30-6.10); WHITE BLOOD COUNT 9.7 10^3/uL (4.0-10.0)
[2023-01-08 22:59] LABS: INR 0.91; PROTHROMBIN TIME 12.5 SECONDS (12.5-14.5)
[2023-01-08 23:15] LABS: CK-MB VALUE MASS 1.1 NG/ML (<3.6)
[2023-01-08 23:16] LABS: BLOOD UREA NITROGEN 14 MG/DL (9-23); CALCIUM LEVEL 9.1 MG/DL (8.5-10.1); CARBON DIOXIDE LEVEL 23 MMOL/L (20-31); CHLORIDE LEVEL 104 MMOL/L (98-107); CREATININE FOR GFR 0.91 MG/DL (0.70-1.30); GLOMERULAR FILTRATION RATE > 60.0 (>60); GLUCOSE, FASTING 182 MG/DL (60-100); POTASSIUM SERUM 3.8 MMOL/L (3.5-5.1); SODIUM LEVEL 138 MMOL/L (136-145)
[2023-01-08 23:21] LABS: CPK CREATINE PHOSPHOKINASE 207 U/L (46-171); MB/CK RELATIVE INDEX 0.53 (< OR =4)
[2023-01-08] MEDS ORDERED: ACETAMINOPHEN TAB 650MG DOSE (2X325MG) PO ONE (23:40)
[2023-01-09 00:14] LABS: CK-MB VALUE MASS < 1.0 NG/ML (<3.6)
[2023-01-09 00:28] LABS: CPK CREATINE PHOSPHOKINASE 190 U/L (46-171); MB/CK RELATIVE INDEX 0.52 (< OR =4)
[2023-01-09 01:00] VITALS: BP 122/58
== END 2023-01-09 01:20 | disposition home or self-care (01) ==
LOC: M ED 21:20
DX: R60.9 Edema, unspecified (principal); I10 Essential (primary) hypertension; E78.5 Hyperlipidemia, unspecified; G47.33 Obstructive sleep apnea (adult) (pediatric); G43.909 Migraine, unspecified, not intractable, without status migrainosus; F10.10 Alcohol abuse, uncomplicated; Z88.0 Allergy status to penicillin; Z91.030 Bee allergy status; Z91.018 Allergy to other foods; Z79.82 Long term (current) use of aspirin; Z79.811 Long term (current) use of aromatase inhibitors; Z79.899 Other long term (current) drug therapy
CPT/HCPCS: 36415; 71045; 80048; 82550; 82553; 83880; 84484; 85025; 85610; 87486; 87581; 87633; 87798; 93005; 93041; 94760; 99285; G0463

== ENCOUNTER 2023-02-17 11:39 | Day surgery (SDC) | payer MEDICARE ==
[~2023-02-17] VITALS: Ht 167.6 cm; Wt 123.1 kg
[~2023-02-17 11:39] MED LIST changes: +BETH5TAB2 PO; +FAMO40TA3 PO; +FLUT15.819; +LEVOTAB10 PO; +NS 1,000 ML IV ONE; +ONDA-83 PO; +POTA-298 PO; -POTA1TAB14 PO; +TOPA50TA8 PO
[2023-02-17] MEDS ORDERED: fentaNYL 100 MCG/2 ML INJECTION As Ordered ONE (12:57)
[2023-02-17] MEDS ORDERED: propofoL 200 MG/20 ML VIAL As Ordered ONE ×2 (12:58→13:18)
[2023-02-17] MEDS ORDERED: LIDOCAINE 2% 100MG/5ML SDV (FOR ANES.) As Ordered ONE (12:59)
[2023-02-17] MEDS ORDERED: ONDANSETRON 4MG 2ML VIAL As Ordered ONE (12:59)
[2023-02-17] MEDS ORDERED: GLYCOPYRROLATE INJ 0.2 MG/ML 2 ML VIAL As Ordered ONE (13:00)
[2023-02-17] MEDS ORDERED: diphenhydrAMINE 50MG/ML VIAL As Ordered ONE (13:01)
[2023-02-17] MEDS ORDERED: PHENYLephrine 500MCG 5ML (100MCG/ML) SYRINGE As Ordered ONE (13:24)
[2023-02-17 14:03] VITALS: BP 105/55
== END 2023-02-17 14:12 | disposition home or self-care (01) ==
LOC: M OPP 11:39
PROVIDERS: ATTEND Internal Medicine Gastroenterology
DX: Z12.11 Encounter for screening for malignant neoplasm of colon (principal); K57.30 Diverticulosis of large intestine without perforation or abscess without bleeding; K64.8 Other hemorrhoids; K44.9 Diaphragmatic hernia without obstruction or gangrene; K31.89 Other diseases of stomach and duodenum; R76.8 Other specified abnormal immunological findings in serum; R12 Heartburn; Z79.02 Long term (current) use of antithrombotics/antiplatelets; Z79.82 Long term (current) use of aspirin; Z79.899 Other long term (current) drug therapy; Z88.0 Allergy status to penicillin; Z88.8 Allergy status to other drugs, medicaments and biological substances; Z91.018 Allergy to other foods; Z91.030 Bee allergy status

== ENCOUNTER 2023-02-17 17:53 | Emergency (ER) | payer MEDICARE ==
[~2023-02-17] VITALS: Ht 167.6 cm; Wt 122.7 kg
[~2023-02-17 17:53] MED LIST changes: -NS 1,000 ML IV ONE
[2023-02-17] MEDS ORDERED: ASPIRIN 81MG CHEW TABLET PO ONE (18:15)
[2023-02-17] MEDS ORDERED: ACETAMINOPHEN 325 MG TAB PO ONE (18:30)
[2023-02-17] MEDS: NS 1,000 ML IV SCH ×2 (18:30→18:49)
[2023-02-17 18:48] LABS: BASO % 0.2 % (0.0-1.0); HEMATOCRIT 39.3 % (42.0-52.0); HEMOGLOBIN 13.9 g/dl (13.5-17.5); LYMPH # 0.9 10^3/uL (1.5-5.0); LYMPH % 8.2 % (24.0-44.0); MEAN CORPUSCULAR HGB CONC 35.4 g/dl (32.0-36.5); MEAN CORPUSCULAR VOLUME 84.7 fl (80.0-96.0); MONO # 0.2 10^3/uL (0.0-0.8); MONO % 2.1 % (2.0-8.0); NEUTROPHILS % 88.8 % (36.0-66.0); PLATELET COUNT, AUTOMATED 204 10^3/uL (150-450); RED BLOOD COUNT 4.64 10^6/uL (4.30-6.10); WHITE BLOOD COUNT 11.3 10^3/uL (4.0-10.0)
[2023-02-17 19:06] LABS: INR 1.08; PROTHROMBIN TIME 14.2 SECONDS (12.5-14.5)
[2023-02-17 19:10] LABS: ALBUMIN 3.4 G/DL (3.2-5.2); ALKALINE PHOSPHATASE 101 U/L (46-116); ALT/SGPT 155 U/L (7.0-40); AST/SGOT 74 U/L (<34); BILIRUBIN,DIRECT 0.6 MG/DL (<0.4); BILIRUBIN,TOTAL 1.6 MG/DL (0.3-1.2); BLOOD UREA NITROGEN 14 MG/DL (9-23); CALCIUM LEVEL 8.1 MG/DL (8.5-10.1); CARBON DIOXIDE LEVEL 21 MMOL/L (20-31); CHLORIDE LEVEL 102 MMOL/L (98-107); CK-MB VALUE MASS < 1.0 NG/ML (<3.6); CREATININE FOR GFR 1.01 MG/DL (0.70-1.30); GLOMERULAR FILTRATION RATE > 60.0 (>60); GLUCOSE, FASTING 167 MG/DL (60-100); POTASSIUM SERUM 3.8 MMOL/L (3.5-5.1); SODIUM LEVEL 135 MMOL/L (136-145); TOTAL PROTEIN 5.9 G/DL (5.7-8.2)
[2023-02-17 19:23] LABS: CPK CREATINE PHOSPHOKINASE 178 U/L (46-171); MB/CK RELATIVE INDEX 0.56 (< OR =4)
[2023-02-17 20:00] VITALS: BP 128/58
[2023-02-17 20:10] LABS: CK-MB VALUE MASS < 1.0 NG/ML (<3.6)
[2023-02-17 20:11] LABS: CPK CREATINE PHOSPHOKINASE 175 U/L (46-171); MB/CK RELATIVE INDEX 0.57 (< OR =4)
== END 2023-02-17 20:27 | disposition home or self-care (01) ==
LOC: EDBD 17:53 → M ED 17:53
DX: J12.9 Viral pneumonia, unspecified (principal); R00.0 Tachycardia, unspecified; I10 Essential (primary) hypertension; G43.909 Migraine, unspecified, not intractable, without status migrainosus; G47.33 Obstructive sleep apnea (adult) (pediatric); J44.9 Chronic obstructive pulmonary disease, unspecified; Z86.73 Personal history of transient ischemic attack (TIA), and cerebral infarction without residual deficits; Z88.0 Allergy status to penicillin; Z91.030 Bee allergy status; Z91.018 Allergy to other foods; Z79.02 Long term (current) use of antithrombotics/antiplatelets; Z79.811 Long term (current) use of aromatase inhibitors; Z79.83 Long term (current) use of bisphosphonates; Z79.899 Other long term (current) drug therapy; Z12.11 Encounter for screening for malignant neoplasm of colon; K57.30 Diverticulosis of large intestine without perforation or abscess without bleeding; K64.8 Other hemorrhoids; K44.9 Diaphragmatic hernia without obstruction or gangrene; K31.89 Other diseases of stomach and duodenum; R12 Heartburn; R76.8 Other specified abnormal immunological findings in serum
CPT/HCPCS: 43239; 71045; 74176; 80048; 80076; 82550; 82553; 84484; 85025; 85610; 87486; 87581; 87633; 87798; 88305; 93005; 93041; 94760; 96360; 96361; 99285; G0121; J1200; J2370; J2405; J3010

== ENCOUNTER → 2023-02-19 | Outpatient (CLI) | payer MEDICARE | LOC: M CARPUL 10:14 | PROVIDERS: ATTEND Physician Assistant | DX: I11.9 Hypertensive heart disease without heart failure (principal) ==

== ENCOUNTER 2023-03-18 07:58 | Day surgery (SDC) | payer MEDICARE ==
[~2023-03-18] VITALS: Ht 162.6 cm; Wt 122.2 kg
[~2023-03-18 07:58] MED LIST changes: +CLINDAMYCIN 900 MG in IV 1 EA IV ONE
[2023-03-18] MEDS ORDERED: LR 1,000 ML IV SCH (08:55)
[2023-03-18] MEDS ORDERED: LIDOCAINE 2% 100MG/5ML SDV (FOR ANES.) As Ordered ONE (09:01)
[2023-03-18] MEDS ORDERED: propofoL 200 MG/20 ML VIAL As Ordered ONE ×2 (09:02→10:10)
[2023-03-18] MEDS ORDERED: MIDAZOLAM INJ 2MG/2ML VIAL As Ordered ONE (09:03)
[2023-03-18] MEDS ORDERED: fentaNYL 100 MCG/2 ML INJECTION As Ordered ONE (09:03)
[2023-03-18] MEDS ORDERED: ONDANSETRON 4MG 2ML VIAL As Ordered ONE (09:04)
[2023-03-18] MEDS ORDERED: KETOROLAC 60MG 2ML VIAL As Ordered ONE (09:05)
[2023-03-18] MEDS ORDERED: LIDOCAINE 1% MDV 20ML VIAL As Ordered ONE (09:35)
[2023-03-18 11:45] VITALS: BP 129/72; TEMP 97.5; O2SAT 97
== END 2023-03-18 11:54 | disposition home or self-care (01) ==
LOC: M SDC 07:58
PROVIDERS: ATTEND Podiatrist Foot & Ankle Surgery
DX: M67.472 Ganglion, left ankle and foot (principal); I10 Essential (primary) hypertension; K76.9 Liver disease, unspecified; Z86.73 Personal history of transient ischemic attack (TIA), and cerebral infarction without residual deficits; K21.9 Gastro-esophageal reflux disease without esophagitis; G43.909 Migraine, unspecified, not intractable, without status migrainosus; J44.9 Chronic obstructive pulmonary disease, unspecified; G47.33 Obstructive sleep apnea (adult) (pediatric); N40.0 Benign prostatic hyperplasia without lower urinary tract symptoms; Z88.0 Allergy status to penicillin; Z91.018 Allergy to other foods; Z91.030 Bee allergy status; Z79.82 Long term (current) use of aspirin; Z79.899 Other long term (current) drug therapy
CPT/HCPCS: 28090; 88304; J1100; J1885; J2250; J2405; J3010

== ENCOUNTER → 2023-04-24 | Outpatient (CLI) | payer MEDICARE ==
[~2023-04-24] MED LIST changes: -CLINDAMYCIN 900 MG in IV 1 EA IV ONE
== END ==
LOC: M RAD 09:06
PROVIDERS: ATTEND Otolaryngology
DX: J32.0 Chronic maxillary sinusitis (principal)

== ENCOUNTER → 2023-06-05 | Outpatient (REF) | payer MEDICARE ==
[~2023-06-05] MED LIST changes: +LORA-1041 PO; -LORA-674 PO
== END ==
LOC: M SFHCADAM 14:22
PROVIDERS: ATTEND Physician Assistant
DX: R50.9 Fever, unspecified (principal)

== ENCOUNTER → 2023-06-16 | Outpatient (CLI) | payer MEDICARE ==
[2023-06-16 09:43] LABS: BLOOD UREA NITROGEN 14 MG/DL (9-23); CARBON DIOXIDE LEVEL 26 MMOL/L (20-31); CHLORIDE LEVEL 107 MMOL/L (98-107); CREATININE FOR GFR 1.04 MG/DL (0.70-1.30); GLOMERULAR FILTRATION RATE > 60.0 (>60); GLUCOSE, FASTING 142 MG/DL (60-100); SODIUM LEVEL 141 MMOL/L (136-145)
== END ==
LOC: M LAB 08:24
PROVIDERS: ATTEND Physician Assistant
DX: I10 Essential (primary) hypertension (principal)

== ENCOUNTER → 2023-08-10 | Day surgery (SDC) | payer MEDICARE ==
[~2023-08-10] VITALS: Ht 165.1 cm; Wt 123.8 kg
[~2023-08-10] MED LIST changes: +HYDROMORPHONE HCL 0.5 MG/ 0.5 ML SYRINGE IV PRN; +LIDOCAINE 2% INJ 100 MG/5 ML SYRINGE As Ordered ONE; +LIDOCAINE W/EPINEPHRINE 1% 20ML VIAL As Ordered ONE; +LR 1,000 ML IV SCH; +MIDAZOLAM INJ 2MG/2ML VIAL As Ordered ONE; +ONDANSETRON 4MG 2ML VIAL As Ordered ONE; +ONDANSETRON 4MG 2ML VIAL IV PRN; +OXYMETAZOLINE 0.05% NASAL SPRAY (AFRIN) As Ordered ONE; +ROCURONIUM BROMIDE 50MG/5ML VIAL As Ordered ONE; +SUGAMMADEX SODIUM 500 MG/5 ML VIAL (BRIDION) As Ordered ONE; +fentaNYL 100 MCG/2 ML INJECTION As Ordered ONE; +fentaNYL 100 MCG/2 ML INJECTION IV PRN; +oxyCODONE 5MG TAB PO PRN; +propofoL 200 MG/20 ML VIAL As Ordered ONE
[2023-08-10 16:20] VITALS: BP 131/65; TEMP 97.8; O2SAT 98
== END | disposition home or self-care (01) ==
LOC: M SDC 11:50
PROVIDERS: ATTEND Otolaryngology
DX: K13.79 Other lesions of oral mucosa (principal); J31.0 Chronic rhinitis; J34.2 Deviated nasal septum; J32.0 Chronic maxillary sinusitis; E78.00 Pure hypercholesterolemia, unspecified; I10 Essential (primary) hypertension; K21.9 Gastro-esophageal reflux disease without esophagitis; N40.0 Benign prostatic hyperplasia without lower urinary tract symptoms; G47.33 Obstructive sleep apnea (adult) (pediatric); J44.9 Chronic obstructive pulmonary disease, unspecified; Z86.73 Personal history of transient ischemic attack (TIA), and cerebral infarction without residual deficits; J30.2 Other seasonal allergic rhinitis; Z88.0 Allergy status to penicillin; Z91.018 Allergy to other foods; Z91.030 Bee allergy status; Z79.82 Long term (current) use of aspirin; Z79.899 Other long term (current) drug therapy
CPT/HCPCS: 40808; 88305; J1100; J2250; J2405; J3010

== ENCOUNTER → 2023-09-09 | Outpatient (REF) | payer MEDICARE ==
[~2023-09-09] MED LIST changes: -HYDROMORPHONE HCL 0.5 MG/ 0.5 ML SYRINGE IV PRN; -LIDOCAINE 2% INJ 100 MG/5 ML SYRINGE As Ordered ONE; -LIDOCAINE W/EPINEPHRINE 1% 20ML VIAL As Ordered ONE; -LR 1,000 ML IV SCH; -MIDAZOLAM INJ 2MG/2ML VIAL As Ordered ONE; -ONDANSETRON 4MG 2ML VIAL As Ordered ONE; -ONDANSETRON 4MG 2ML VIAL IV PRN; -OXYMETAZOLINE 0.05% NASAL SPRAY (AFRIN) As Ordered ONE; -ROCURONIUM BROMIDE 50MG/5ML VIAL As Ordered ONE; -SUGAMMADEX SODIUM 500 MG/5 ML VIAL (BRIDION) As Ordered ONE; -fentaNYL 100 MCG/2 ML INJECTION As Ordered ONE; -fentaNYL 100 MCG/2 ML INJECTION IV PRN; -oxyCODONE 5MG TAB PO PRN; -propofoL 200 MG/20 ML VIAL As Ordered ONE
[2023-09-09 12:19] LABS: CREATININE, URINE 31.2 MG/DL; MALB URINE SIEMENS < 3.0 MG/L; MAU/CREAT RATIO 9.6 MCG/MG (0.0-30.0)
== END ==
LOC: M SFHCADAM 09:35
PROVIDERS: ATTEND Physician Assistant
DX: E78.2 Mixed hyperlipidemia (principal); Z13.1 Encounter for screening for diabetes mellitus; K64.9 Unspecified hemorrhoids; I11.9 Hypertensive heart disease without heart failure; K59.00 Constipation, unspecified

== ENCOUNTER → 2023-10-28 | Outpatient (REF) | payer MEDICARE | LOC: M SFHCADAM 16:01 | PROVIDERS: ATTEND Physician Assistant | DX: J06.9 Acute upper respiratory infection, unspecified (principal) ==

== ENCOUNTER → 2023-11-25 | Outpatient (CLI) | payer MEDICARE | LOC: M SLEEP 20:00 | PROVIDERS: ATTEND Nurse Practitioner Family | DX: G47.33 Obstructive sleep apnea (adult) (pediatric) (principal) ==

== ENCOUNTER → 2023-11-30 | Outpatient (REF) | payer MEDICARE | LOC: M SFHCADAM 12:38 | PROVIDERS: ATTEND Physician Assistant | DX: J00 Acute nasopharyngitis [common cold] (principal) ==

== ENCOUNTER → 2023-12-17 | Outpatient (REF) | payer MEDICARE ==
[~2023-12-17] MED LIST changes: +D3 M1CAP2 PO; +DEXL60CA PO; +DOCU100C16 PO; +FLUTISP; +POTA-151 PO; +SEMA0.257 SC; +SEMA1PEN2 SQ
[2023-12-17 13:47] LABS: HEMATOCRIT 42.1 % (42.0-52.0); HEMOGLOBIN 14.3 g/dl (13.5-17.5); MEAN CORPUSCULAR HEMOGLOBIN 29.5 pg (27.0-33.0); PLATELET COUNT, AUTOMATED 284 10^3/uL (150-450); RED BLOOD COUNT 4.84 10^6/uL (4.30-6.10); WHITE BLOOD COUNT 10.3 10^3/uL (4.0-10.0)
[2023-12-17 13:56] LABS: HEMOGLOBIN A1c 6.2 % (4.0-6.0)
[2023-12-17 14:13] LABS: ALBUMIN 4.1 G/DL (3.2-5.2); ALKALINE PHOSPHATASE 116 U/L (46-116); ALT/SGPT 89 U/L (7.0-40); AST/SGOT 35 U/L (<34); BILIRUBIN,TOTAL 0.9 MG/DL (0.3-1.2); BLOOD UREA NITROGEN 14 MG/DL (9-23); CALCIUM LEVEL 9.4 MG/DL (8.5-10.1); CARBON DIOXIDE LEVEL 27 MMOL/L (20-31); CHLORIDE LEVEL 100 MMOL/L (98-107); CREATININE FOR GFR 0.91 MG/DL (0.70-1.30); GLOMERULAR FILTRATION RATE > 60.0 (>60); GLUCOSE, FASTING 172 MG/DL (60-100); POTASSIUM SERUM 3.6 MMOL/L (3.5-5.1); SODIUM LEVEL 131 MMOL/L (136-145); TOTAL PROTEIN 6.9 G/DL (5.7-8.2)
== END ==
LOC: M SFHCADAM 10:09
PROVIDERS: ATTEND Physician Assistant
DX: R74.8 Abnormal levels of other serum enzymes (principal); K75.81 Nonalcoholic steatohepatitis (NASH); E11.9 Type 2 diabetes mellitus without complications

== ENCOUNTER 2023-12-28 08:26 | Day surgery (SDC) | payer MEDICARE ==
[~2023-12-28] VITALS: Ht 162.6 cm; Wt 119.3 kg
[~2023-12-28 08:26] MED LIST changes: -BETH5TAB2 PO; +BETH5TAB3 PO
[2023-12-28] MEDS ORDERED: LR 1,000 ML IV SCH ×2 (08:35→10:45)
[2023-12-28] MEDS ORDERED: dexmedeTOMIDine (4MCG/ML)200MCG/50ML BTL (PRECEDEX) As Ordered ONE (09:21)
[2023-12-28] MEDS ORDERED: ONDANSETRON 4MG 2ML VIAL As Ordered ONE (09:21)
[2023-12-28] MEDS ORDERED: LIDOCAINE 2% 100MG/5ML SDV (FOR ANES.) As Ordered ONE (09:21)
[2023-12-28] MEDS ORDERED: propofoL 200 MG/20 ML VIAL As Ordered ONE (09:21)
[2023-12-28] MEDS ORDERED: METOCLOPRAMIDE INJ 10MG/2ML VIAL As Ordered ONE (09:21)
[2023-12-28] MEDS ORDERED: SUCCINYLCHOLINE 100MG/5ML SYRINGE As Ordered ONE (09:21)
[2023-12-28] MEDS ORDERED: fentaNYL 100 MCG/2 ML INJECTION As Ordered ONE (09:27)
[2023-12-28] MEDS ORDERED: MIDAZOLAM INJ 2MG/2ML VIAL As Ordered ONE (09:27)
[2023-12-28] MEDS ORDERED: ROCURONIUM BROMIDE 50MG/5ML VIAL As Ordered ONE (09:42)
[2023-12-28] MEDS: OXYMETAZOLINE 0.05% NASAL SPRAY (AFRIN) As Ordered ONE (09:49)
[2023-12-28] MEDS ORDERED: ACETAMINOPHEN 1000MG 100ML IV BAG As Ordered ONE (10:06)
[2023-12-28] MEDS ORDERED: SUGAMMADEX SODIUM 500 MG/5 ML VIAL (BRIDION) As Ordered ONE (10:09)
[2023-12-28] MEDS: LIDOCAINE W/EPINEPHRINE 1% 20ML VIAL As Ordered ONE (10:30)
[2023-12-28] MEDS ORDERED: fentaNYL 100 MCG/2 ML INJECTION IV PRN (10:45)
[2023-12-28] MEDS ORDERED: HYDROMORPHONE HCL 0.5 MG/ 0.5 ML SYRINGE IV PRN (10:45)
[2023-12-28] MEDS ORDERED: ONDANSETRON 4MG 2ML VIAL IV PRN (10:45)
[2023-12-28] MEDS ORDERED: oxyCODONE 5MG TAB PO PRN (10:45)
[2023-12-28 11:40] VITALS: BP 114/60; TEMP 97.1; O2SAT 97
== END 2023-12-28 12:07 | disposition home or self-care (01) ==
LOC: M SDC 08:26
PROVIDERS: ATTEND Otolaryngology
DX: D10.39 Benign neoplasm of other parts of mouth (principal); I10 Essential (primary) hypertension; E11.9 Type 2 diabetes mellitus without complications; E78.00 Pure hypercholesterolemia, unspecified; N40.0 Benign prostatic hyperplasia without lower urinary tract symptoms; G47.30 Sleep apnea, unspecified; Z79.899 Other long term (current) drug therapy; Z79.82 Long term (current) use of aspirin; Z79.84 Long term (current) use of oral hypoglycemic drugs; K21.9 Gastro-esophageal reflux disease without esophagitis; Z90.49 Acquired absence of other specified parts of digestive tract; Z88.0 Allergy status to penicillin; Z88.8 Allergy status to other drugs, medicaments and biological substances; Z91.030 Bee allergy status
CPT/HCPCS: 41899; 88305; J0131; J1100; J2250; J2405; J2765; J3010

== ENCOUNTER → 2024-03-03 | Outpatient (REF) | payer MEDICARE ==
[2024-03-03 15:10] LABS: ALKALINE PHOSPHATASE 111 U/L (46-116); ALT/SGPT 78 U/L (7.0-40); AST/SGOT 23 U/L (<34); BILIRUBIN,TOTAL 1.1 MG/DL (0.3-1.2); BLOOD UREA NITROGEN 12 MG/DL (9-23); CALCIUM LEVEL 9.4 MG/DL (8.5-10.1); CARBON DIOXIDE LEVEL 29 MMOL/L (20-31); CHLORIDE LEVEL 104 MMOL/L (98-107); CREATININE FOR GFR 0.95 MG/DL (0.70-1.30); GLOMERULAR FILTRATION RATE > 60.0 (>60); GLUCOSE, FASTING 88 MG/DL (60-100); SODIUM LEVEL 139 MMOL/L (136-145)
[2024-03-03 15:25] LABS: HEMOGLOBIN A1c 5.6 % (4.0-6.0)
== END ==
LOC: M SFHCADAM 09:44
PROVIDERS: ATTEND Physician Assistant
DX: K75.81 Nonalcoholic steatohepatitis (NASH) (principal); E11.9 Type 2 diabetes mellitus without complications

== ENCOUNTER → 2024-03-08 | Outpatient (REF) | payer MEDICARE | LOC: M SFHCADAM 07:25 | PROVIDERS: ATTEND Physician Assistant | DX: K75.81 Nonalcoholic steatohepatitis (NASH) (principal); E11.9 Type 2 diabetes mellitus without complications; Z53.9 Procedure and treatment not carried out, unspecified reason ==

== ENCOUNTER → 2024-06-29 | Outpatient (CLI) | payer MEDICARE ==
[~2024-06-29] MED LIST changes: -DEXL60CA PO; +DEXL60CA13 PO
== END ==
LOC: M ADAMS 13:52
PROVIDERS: ATTEND Family Medicine
DX: M25.511 Pain in right shoulder (principal)

== ENCOUNTER → 2024-09-06 | Outpatient (REF) | payer MEDICARE ==
[~2024-09-06] MED LIST changes: -LIDO1CRE2 TOP; +LIDO4CRE12 TOP
[2024-09-06 12:53] LABS: HEMATOCRIT 47.2 % (42.0-52.0); HEMOGLOBIN 15.8 g/dl (13.5-17.5); MEAN CORPUSCULAR HEMOGLOBIN 28.9 pg (27.0-33.0); MEAN CORPUSCULAR HGB CONC 33.5 g/dl (32.0-36.5); MEAN CORPUSCULAR VOLUME 86.3 fl (80.0-96.0); PLATELET COUNT, AUTOMATED 224 10^3/uL (150-450); RED BLOOD COUNT 5.47 10^6/uL (4.30-6.10); WHITE BLOOD COUNT 7.5 10^3/uL (4.0-10.0)
[2024-09-06 13:01] LABS: ALBUMIN 4.1 G/DL (3.2-5.2); ALKALINE PHOSPHATASE 95 U/L (40-129); ALT/SGPT 65 U/L (7.0-40); AST/SGOT 28 U/L (<34); BLOOD UREA NITROGEN 15 MG/DL (9-23); CALCIUM LEVEL 9.6 MG/DL (8.5-10.1); CARBON DIOXIDE LEVEL 28 MMOL/L (20-31); CHLORIDE LEVEL 103 MMOL/L (98-107); CHOLESTEROL LEVEL 162 MG/DL (<200); CHOLESTEROL RISK RATIO 5.45 (<5); CREATININE FOR GFR 0.97 MG/DL (0.70-1.30); GLOMERULAR FILTRATION RATE > 60.0 (>60); GLUCOSE, FASTING 101 MG/DL (60-100); HDL CHOLESTEROL 29.7 MG/DL (>40); LDL CHOLESTEROL 108.9 MG/DL (<100); NON-HDL-C 132.3 MG/DL; SODIUM LEVEL 140 MMOL/L (136-145); TOTAL PROTEIN 7.5 G/DL (5.7-8.2); TRIGLYCERIDES LEVEL 117 MG/DL (<150)
[2024-09-06 13:19] LABS: HEMOGLOBIN A1c 5.3 % (4.0-6.0)
== END ==
LOC: M SFHCADAM 10:36
PROVIDERS: ATTEND Family Medicine
DX: N41.0 Acute prostatitis (principal); E78.2 Mixed hyperlipidemia; E11.9 Type 2 diabetes mellitus without complications; K21.9 Gastro-esophageal reflux disease without esophagitis; I11.9 Hypertensive heart disease without heart failure; K75.81 Nonalcoholic steatohepatitis (NASH); N31.9 Neuromuscular dysfunction of bladder, unspecified; Z78.9 Other specified health status; E66.01 Morbid (severe) obesity due to excess calories; G47.33 Obstructive sleep apnea (adult) (pediatric)

== ENCOUNTER 2024-09-19 16:51 | Inpatient (IN) | payer MEDICARE ==
[~2024-09-19] VITALS: Ht 167.6 cm; Wt 116.0 kg
[2024-09-19 17:35] LABS: BASO % 0.5 % (0.0-1.0); EOS # 0.1 10^3/uL (0.0-0.5); EOS % 1.5 % (0.0-3.0); HEMATOCRIT 45.9 % (42.0-52.0); HEMOGLOBIN 16.1 g/dl (13.5-17.5); LYMPH % 34.7 % (24.0-44.0); MEAN CORPUSCULAR HEMOGLOBIN 29.3 pg (27.0-33.0); MEAN CORPUSCULAR HGB CONC 35.1 g/dl (32.0-36.5); MEAN CORPUSCULAR VOLUME 83.5 fl (80.0-96.0); MONO # 0.8 10^3/uL (0.0-0.8); MONO % 9.6 % (2.0-8.0); NEUTROPHILS # 4.7 10^3/uL (1.5-8.5); NEUTROPHILS % 53.4 % (36.0-66.0); PLATELET COUNT, AUTOMATED 220 10^3/uL (150-450); WHITE BLOOD COUNT 8.7 10^3/uL (4.0-10.0)
[2024-09-19] MEDS: METOCLOPRAMIDE INJ 10MG/2ML VIAL IV ONE (17:42)
[2024-09-19] MEDS: NS (Normal Saline) 0.9% 1,000 ML IV SCH (17:42)
[2024-09-19 17:48] LABS: INR 0.94; PARTIAL THROMBOPLASTIN TIME 30.9 SECONDS (24.8-34.2); PROTHROMBIN TIME 12.8 SECONDS (12.5-14.5)
[2024-09-19 17:58] LABS: CK-MB VALUE MASS 1.2 NG/ML (<3.6)
[2024-09-19 18:01] LABS: ALBUMIN 4.1 G/DL (3.2-5.2); ALKALINE PHOSPHATASE 92 U/L (40-129); ALT/SGPT 52 U/L (7.0-40); AST/SGOT 22 U/L (<34); BILIRUBIN,DIRECT 0.3 MG/DL (<0.4); BILIRUBIN,TOTAL 0.9 MG/DL (0.3-1.2); BLOOD UREA NITROGEN 17 MG/DL (9-23); CALCIUM LEVEL 9.4 MG/DL (8.5-10.1); CARBON DIOXIDE LEVEL 24 MMOL/L (20-31); CHLORIDE LEVEL 101 MMOL/L (98-107); CREATININE FOR GFR 0.96 MG/DL (0.70-1.30); GLOMERULAR FILTRATION RATE > 60.0 (>60); GLUCOSE, FASTING 122 MG/DL (60-100); POTASSIUM SERUM 3.7 MMOL/L (3.5-5.1); SODIUM LEVEL 134 MMOL/L (136-145); TOTAL PROTEIN 7.3 G/DL (5.7-8.2)
[2024-09-19 18:02] LABS: THYROID STIMULATING HORMONE 2.966 uIU/ML (0.55-4.78)
[2024-09-19 18:03] LABS: FREE T4 1.18 NG/DL (0.89-1.76)
[2024-09-19 18:04] LABS: CPK CREATINE PHOSPHOKINASE 203 U/L (46-171); MB/CK RELATIVE INDEX 0.59 (< OR =4)
[2024-09-19 19:27] LABS: CK-MB VALUE MASS 1.1 NG/ML (<3.6)
[2024-09-19 19:30] LABS: MB/CK RELATIVE INDEX 0.59 (< OR =4)
[2024-09-19] MEDS: CLOPIDOGREL 300 MG TAB (PLAVIX) PO STA (22:17)
[2024-09-19] MEDS: ASPIRIN 325 MG TAB PO ONE (22:17)
[2024-09-19] MEDS: NS (Normal Saline) 0.9% 1,000 ML IV ONE (22:18)
[2024-09-19] MEDS ORDERED: CIPR500T39 PO (23:23)
[2024-09-19] MEDS ORDERED: HOME MED LIST COMPLETE! XX SCH (23:25)
[2024-09-19 23:28] LABS: APPEARANCE, URINE CLEAR (CLEAR); BACTERIA, URINE AUTO NEGATIVE (NEGATIVE); BILIRUBIN, URINE AUTO NEGATIVE (NEGATIVE); BLOOD, URINE BLOOD NEGATIVE (NEGATIVE); COLOR, URINE STRAW (YELLOW); GLUCOSE, URINE (UA) AUTO NEGATIVE (NEGATIVE); KETONE, URINE AUTO NEGATIVE (NEGATIVE); LEUKOCYTE ESTERASE, URINE AUTO NEGATIVE (NEGATIVE); NITRITE, URINE AUTO NEGATIVE (NEGATIVE); PROTEIN, URINE AUTO NEGATIVE (NEGATIVE); RBC, URINE AUTO 0 /HPF (0-3); SPECIFIC GRAVITY URINE AUTO 1.011 (1.002-1.035); SQUAMOUS EPITHELIAL CELL UR AU 0 /HPF (0-6); UROBILINOGEN, URINE AUTO 0.2 mg/dL (0.0-2.0); WBC, URINE AUTO 1 /HPF (0-3)
[2024-09-20] VITALS (16 sets, daily range): BP systolic 116–128; BP diastolic 59–73; TEMP 96.8–98.2; O2SAT 94–98
[2024-09-20] MEDS ORDERED: MAALOX 30 ML SUSP *UDC PO PRN (00:20)
[2024-09-20] MEDS ORDERED: MOM 30ML SUSPENSION UDC PO PRN (00:20)
[2024-09-20] MEDS ORDERED: ACETAMINOPHEN 325 MG TAB PO PRN (00:20)
[2024-09-20] MEDS ORDERED: LIDOCAINE 2% 5ML JELLY UROJET TOP ONE (01:00)
[2024-09-20] MEDS: NS (Normal Saline) 0.9% 1,000 ML IV ONE (01:19)
[2024-09-20] MEDS: CETIRIZINE (ZyrTEC) 10 MG TAB PO SCH (01:19)
[2024-09-20] MEDS: CLOPIDOGREL 75 MG TAB PO SCH (02:12)
[2024-09-20 02:28] LABS: C REACTIVE PROTEIN QUANTITATIV < 0.50 MG/DL (<1.0); CHOLESTEROL LEVEL 164 MG/DL (<200); CHOLESTEROL RISK RATIO 5.32 (<5); HDL CHOLESTEROL 30.8 MG/DL (>40); LDL CHOLESTEROL 109.2 MG/DL (<100); NON-HDL-C 133.2 MG/DL; TRIGLYCERIDES LEVEL 120 MG/DL (<150)
[2024-09-20 03:23] LABS: HEMOGLOBIN A1c 5.4 % (4.0-6.0)
[2024-09-20] MEDS: VITAMIN D 1,000 INTERNATIONAL UNITS TABLET PO SCH (08:42)
[2024-09-20] MEDS: TOPIRAMATE (TopAMAX) 25 MG TAB PO SCH (08:43)
[2024-09-20] MEDS: ASPIRIN 81MG ENTERIC TABLET PO SCH (08:43)
[2024-09-20] MEDS: PANTOPRAZOLE 40MG TAB (PROTONIX) PO SCH (08:46)
[2024-09-20] MEDS: FAMOTIDINE 20 MG TAB PO SCH (08:46)
[2024-09-20] MEDS: POTASSIUM CHLORIDE 10MEQ SR TABLET PO SCH (08:46)
[2024-09-20] MEDS: ATORVASTATIN 20 MG TAB PO SCH (08:46)
[2024-09-20] MEDS: DOCUSATE SODIUM 100MG CAPSULE PO SCH (08:47)
[2024-09-20 09:11] LABS: BASO % 0.4 % (0.0-1.0); EOS # 0.1 10^3/uL (0.0-0.5); EOS % 1.6 % (0.0-3.0); HEMATOCRIT 45.6 % (42.0-52.0); HEMOGLOBIN 15.7 g/dl (13.5-17.5); LYMPH # 2.5 10^3/uL (1.5-5.0); LYMPH % 32.7 % (24.0-44.0); MEAN CORPUSCULAR HEMOGLOBIN 29.3 pg (27.0-33.0); MEAN CORPUSCULAR HGB CONC 34.4 g/dl (32.0-36.5); MEAN CORPUSCULAR VOLUME 85.1 fl (80.0-96.0); MONO # 0.8 10^3/uL (0.0-0.8); MONO % 10.4 % (2.0-8.0); NEUTROPHILS # 4.1 10^3/uL (1.5-8.5); NEUTROPHILS % 54.4 % (36.0-66.0); PLATELET COUNT, AUTOMATED 225 10^3/uL (150-450); RED BLOOD COUNT 5.36 10^6/uL (4.30-6.10); WHITE BLOOD COUNT 7.5 10^3/uL (4.0-10.0)
[2024-09-20 09:35] LABS: BLOOD UREA NITROGEN 16 MG/DL (9-23); CALCIUM LEVEL 9.2 MG/DL (8.5-10.1); CARBON DIOXIDE LEVEL 23 MMOL/L (20-31); CHLORIDE LEVEL 104 MMOL/L (98-107); CREATININE FOR GFR 0.82 MG/DL (0.70-1.30); GLOMERULAR FILTRATION RATE > 60.0 (>60); GLUCOSE, FASTING 109 MG/DL (60-100); SODIUM LEVEL 137 MMOL/L (136-145)
[2024-09-20 15:04] LABS: DRVV SCREEN 32.3 SECONDS
[2024-09-20 15:10] LABS: PTT LUPUS TYPE ANTICOAG SCREEN 0.79 (0-1.20)
[2024-09-20] MEDS: EZETIMIBE 10MG TABLET (ZETIA) PO SCH (20:27)
[2024-09-20] MEDS: TAMSULOSIN 0.4 MG CAP PO SCH (20:28)
[2024-09-21] VITALS: O2SAT 97
[2024-09-21 04:00] VITALS: BP 113/64; TEMP 97; O2SAT 97
[2024-09-21 06:52] LABS: BASO % 0.4 % (0.0-1.0); EOS # 0.2 10^3/uL (0.0-0.5); HEMATOCRIT 44.6 % (42.0-52.0); HEMOGLOBIN 15.6 g/dl (13.5-17.5); LYMPH # 2.4 10^3/uL (1.5-5.0); LYMPH % 31.9 % (24.0-44.0); MEAN CORPUSCULAR HEMOGLOBIN 29.3 pg (27.0-33.0); MEAN CORPUSCULAR VOLUME 83.8 fl (80.0-96.0); MONO # 0.7 10^3/uL (0.0-0.8); MONO % 9.3 % (2.0-8.0); NEUTROPHILS # 4.1 10^3/uL (1.5-8.5); NEUTROPHILS % 55.9 % (36.0-66.0); PLATELET COUNT, AUTOMATED 217 10^3/uL (150-450); RED BLOOD COUNT 5.32 10^6/uL (4.30-6.10); WHITE BLOOD COUNT 7.4 10^3/uL (4.0-10.0)
[2024-09-21 07:00] VITALS: O2SAT 97
[2024-09-21 07:23] LABS: BLOOD UREA NITROGEN 18 MG/DL (9-23); CARBON DIOXIDE LEVEL 25 MMOL/L (20-31); CHLORIDE LEVEL 102 MMOL/L (98-107); CREATININE FOR GFR 0.99 MG/DL (0.70-1.30); GLOMERULAR FILTRATION RATE > 60.0 (>60); GLUCOSE, FASTING 127 MG/DL (60-100); POTASSIUM SERUM 3.6 MMOL/L (3.5-5.1); SODIUM LEVEL 137 MMOL/L (136-145)
[2024-09-21 07:47] VITALS: BP 138/66; TEMP 97.7; O2SAT 97
[2024-09-21 08:00] VITALS: BP 138/66; TEMP 97.7; O2SAT 97
[2024-09-21] MEDS: ENOXAPARIN 40MG/0.4ML SYRINGE (J1650 PER 10MG) SC SCH (08:29)
[2024-09-21] MEDS: FINASTERIDE 5MG TAB PO SCH (08:30)
[2024-09-21] MEDS ORDERED: EZET10TA21 PO (08:51)
[2024-09-21] MEDS ORDERED: CLOP75TA2 PO (08:51)
[2024-09-22 08:17] LABS: ANA SCREEN, IFA NEGATIVE (NEGATIVE)
[2024-09-22 14:11] LABS: PROTEIN S ANTIGEN FREE 79 % normal (57-171); PROTEIN S ANTIGEN TOTAL 94 % normal (70-140)
[2024-09-22 15:48] LABS: CARDIOLIPIN IGA ANTIBODY < 2.0 APL-U/mL (<20.0); CARDIOLIPIN IGG ANTIBODY < 2.0 GPL-U/mL (<20.0); CARDIOLIPIN IGM ANTIBODY < 2.0 MPL-U/mL (<20.0)
[2024-09-23 17:07] LABS: FACTOR V111 ACTIVITY, CLOTTING 70 % normal (50-180); FACTOR VIII APTT 30 sec (23-32); RISTOCETIN COFACTOR 61 % normal (42-200); VW FACTOR ANTIGEN 80 % (50-217)
[2024-09-25 00:23] LABS: ANTI THROMBIN 3 ANTIGEN IMMUNO 90 % normal (80-120); ANTI THROMBIN 3 FUNCT ACTIVITY 97 % normal (80-135)
== END 2024-09-21 10:34 | disposition home or self-care (01) | DRG 66 ==
LOC: M ED 16:51 → M ED INP 23:07 → M PCU 09-20 01:05
PROVIDERS: ADMIT Family Medicine; ATTEND Family Medicine
PROC: B246ZZZ Ultrasonography of Right and Left Heart (ICD-10-PCS; principal; 2024-09-20)
DX: I63.81 Other cerebral infarction due to occlusion or stenosis of small artery (principal); G47.33 Obstructive sleep apnea (adult) (pediatric); G43.909 Migraine, unspecified, not intractable, without status migrainosus; J44.9 Chronic obstructive pulmonary disease, unspecified; I10 Essential (primary) hypertension; E78.5 Hyperlipidemia, unspecified; K21.9 Gastro-esophageal reflux disease without esophagitis; N40.1 Benign prostatic hyperplasia with lower urinary tract symptoms; E55.9 Vitamin D deficiency, unspecified; M54.50 Low back pain, unspecified; E11.9 Type 2 diabetes mellitus without complications; Z90.49 Acquired absence of other specified parts of digestive tract; T58.91XA Toxic effect of carbon monoxide from unspecified source, accidental (unintentional), initial encounter; Z86.73 Personal history of transient ischemic attack (TIA), and cerebral infarction without residual deficits; Z79.82 Long term (current) use of aspirin; Z79.899 Other long term (current) drug therapy; Z88.0 Allergy status to penicillin; Z91.030 Bee allergy status; Z91.018 Allergy to other foods; Z88.8 Allergy status to other drugs, medicaments and biological substances

== ENCOUNTER 2024-09-25 15:31 | Inpatient (IN) | payer MEDICARE ==
[~2024-09-25] VITALS: Ht 167.6 cm; Wt 114.9 kg
[~2024-09-25 15:31] MED LIST changes: +CIPR500T39 PO; +CLOP75TA2 PO; +EZET10TA21 PO
[2024-09-25] MEDS ORDERED: ISOVUE-370 76% 100ML VIAL As Ordered ONE (15:42)
[2024-09-25 15:59] LABS: BASO % 0.4 % (0.0-1.0); EOS # 0.2 10^3/uL (0.0-0.5); EOS % 1.5 % (0.0-3.0); HEMOGLOBIN 15.6 g/dl (13.5-17.5); LYMPH # 3.5 10^3/uL (1.5-5.0); LYMPH % 32.2 % (24.0-44.0); MEAN CORPUSCULAR HEMOGLOBIN 29.4 pg (27.0-33.0); MEAN CORPUSCULAR HGB CONC 34.7 g/dl (32.0-36.5); MEAN CORPUSCULAR VOLUME 84.7 fl (80.0-96.0); NEUTROPHILS # 6.1 10^3/uL (1.5-8.5); NEUTROPHILS % 56.1 % (36.0-66.0); PLATELET COUNT, AUTOMATED 247 10^3/uL (150-450); RED BLOOD COUNT 5.31 10^6/uL (4.30-6.10)
[2024-09-25 16:10] LABS: INR 0.96; PARTIAL THROMBOPLASTIN TIME 30.6 SECONDS (24.8-34.2); PROTHROMBIN TIME 13.1 SECONDS (12.5-14.5)
[2024-09-25 16:11] VITALS: BP 112/58; TEMP 97.5
[2024-09-25] MEDS: METOCLOPRAMIDE INJ 10MG/2ML VIAL IV ONE (16:24)
[2024-09-25] MEDS: KETOROLAC 30 MG/ML 1ML VIAL IV ONE (16:25)
[2024-09-25 16:29] LABS: BLOOD UREA NITROGEN 18 MG/DL (9-23); CALCIUM LEVEL 9.5 MG/DL (8.5-10.1); CARBON DIOXIDE LEVEL 25 MMOL/L (20-31); CHLORIDE LEVEL 105 MMOL/L (98-107); CREATININE FOR GFR 1.09 MG/DL (0.70-1.30); GLOMERULAR FILTRATION RATE > 60.0 (>60); GLUCOSE, FASTING 104 MG/DL (60-100); SODIUM LEVEL 138 MMOL/L (136-145)
[2024-09-25] MEDS: EZETIMIBE 10MG TABLET (ZETIA) PO SCH (21:00)
[2024-09-25] MEDS ORDERED: GLUCAGON INJ 1MG VIAL SC PRN (22:30)
[2024-09-25] MEDS ORDERED: MOM 30ML SUSPENSION UDC PO PRN (22:30)
[2024-09-25] MEDS ORDERED: GLUCOSE 4 GM CHEW PO PRN (22:30)
[2024-09-25] MEDS ORDERED: DEXTROSE 50% 50ML SYRINGE IV PRN (22:30)
[2024-09-26] VITALS (8 sets, daily range): BP systolic 105–117; BP diastolic 49–65; TEMP 96.8–98; O2SAT 94–96
[2024-09-26] MEDS ORDERED: EZET10TA21 PO (00:03)
[2024-09-26] MEDS ORDERED: GLUC500T53 PO (00:03)
[2024-09-26] MEDS ORDERED: SEMA2PEN SC (00:03)
[2024-09-26] MEDS ORDERED: CLOP75TA2 PO (00:03)
[2024-09-26] MEDS ORDERED: HOME MED LIST COMPLETE! XX SCH (00:05)
[2024-09-26] MEDS: FAMOTIDINE 20 MG TAB PO SCH (00:58)
[2024-09-26] MEDS: TOPIRAMATE (TopAMAX) 25 MG TAB PO SCH (01:01)
[2024-09-26 07:14] LABS: HEMATOCRIT 41.5 % (42.0-52.0); HEMOGLOBIN 14.3 g/dl (13.5-17.5); MEAN CORPUSCULAR HEMOGLOBIN 29.5 pg (27.0-33.0); MEAN CORPUSCULAR HGB CONC 34.5 g/dl (32.0-36.5); MEAN CORPUSCULAR VOLUME 85.6 fl (80.0-96.0); PLATELET COUNT, AUTOMATED 244 10^3/uL (150-450); RED BLOOD COUNT 4.85 10^6/uL (4.30-6.10); WHITE BLOOD COUNT 9.5 10^3/uL (4.0-10.0)
[2024-09-26 07:38] LABS: ALBUMIN 3.8 G/DL (3.2-5.2); ALKALINE PHOSPHATASE 86 U/L (40-129); ALT/SGPT 51 U/L (7.0-40); AST/SGOT 21 U/L (<34); BILIRUBIN,TOTAL 0.8 MG/DL (0.3-1.2); BLOOD UREA NITROGEN 19 MG/DL (9-23); CALCIUM LEVEL 8.9 MG/DL (8.5-10.1); CARBON DIOXIDE LEVEL 24 MMOL/L (20-31); CHLORIDE LEVEL 107 MMOL/L (98-107); CREATININE FOR GFR 0.97 MG/DL (0.70-1.30); GLOMERULAR FILTRATION RATE > 60.0 (>60); GLUCOSE, FASTING 122 MG/DL (60-100); POTASSIUM SERUM 4.1 MMOL/L (3.5-5.1); SODIUM LEVEL 140 MMOL/L (136-145); TOTAL PROTEIN 6.4 G/DL (5.7-8.2)
[2024-09-26] MEDS: NS (Normal Saline) 0.9% 1,000 ML IV SCH (08:40)
[2024-09-26] MEDS ORDERED: amLODIPine 5 MG TAB PO SCH (09:00)
[2024-09-26 09:02] LABS: CHOLESTEROL LEVEL 102 MG/DL (<200); HDL CHOLESTEROL 27.5 MG/DL (>40); LDL CHOLESTEROL 57.1 MG/DL (<100); NON-HDL-C 74.5 MG/DL; TRIGLYCERIDES LEVEL 87 MG/DL (<150)
[2024-09-26 09:50] LABS: HEMOGLOBIN A1c 5.4 % (4.0-6.0)
[2024-09-26] MEDS: ENOXAPARIN 40MG/0.4ML SYRINGE (J1650 PER 10MG) SC SCH (10:00)
[2024-09-26] MEDS: ATORVASTATIN 20 MG TAB PO SCH (10:01)
[2024-09-26] MEDS: FINASTERIDE 5MG TAB PO SCH (10:04)
[2024-09-26] MEDS: CLOPIDOGREL 75 MG TAB PO SCH (10:04)
[2024-09-26] MEDS: INSULIN LISPRO (NovoLOG) PER UNIT SC SCH ×2 (10:05→21:00)
[2024-09-26] MEDS: DOCUSATE SODIUM 100MG CAPSULE PO SCH (10:05)
[2024-09-26] MEDS: ASPIRIN 81MG ENTERIC TABLET PO SCH (10:06)
[2024-09-26] MEDS: ACETAMINOPHEN 325 MG TAB PO PRN (10:25)
[2024-09-26] MEDS: traMADol 50 MG TAB PO PRN (21:09)
[2024-09-27 00:07] VITALS: BP 110/52; TEMP 96.9; O2SAT 99
[2024-09-27 04:44] VITALS: BP 109/59; TEMP 96.8; O2SAT 97
[2024-09-27 07:26] LABS: HEMATOCRIT 43.2 % (42.0-52.0); HEMOGLOBIN 14.1 g/dl (13.5-17.5); MEAN CORPUSCULAR HEMOGLOBIN 29.2 pg (27.0-33.0); MEAN CORPUSCULAR HGB CONC 32.6 g/dl (32.0-36.5); MEAN CORPUSCULAR VOLUME 89.4 fl (80.0-96.0); PLATELET COUNT, AUTOMATED 177 10^3/uL (150-450); RED BLOOD COUNT 4.83 10^6/uL (4.30-6.10); WHITE BLOOD COUNT 8.3 10^3/uL (4.0-10.0)
[2024-09-27 07:37] LABS: ALBUMIN 3.4 G/DL (3.2-5.2); ALKALINE PHOSPHATASE 73 U/L (40-129); ALT/SGPT 47 U/L (7.0-40); AST/SGOT 21 U/L (<34); BILIRUBIN,TOTAL 0.8 MG/DL (0.3-1.2); BLOOD UREA NITROGEN 17 MG/DL (9-23); CALCIUM LEVEL 8.5 MG/DL (8.5-10.1); CARBON DIOXIDE LEVEL 20 MMOL/L (20-31); CHLORIDE LEVEL 110 MMOL/L (98-107); CREATININE FOR GFR 0.94 MG/DL (0.70-1.30); GLOMERULAR FILTRATION RATE > 60.0 (>60); GLUCOSE, FASTING 87 MG/DL (60-100); POTASSIUM SERUM 4.1 MMOL/L (3.5-5.1); SODIUM LEVEL 139 MMOL/L (136-145); TOTAL PROTEIN 6.2 G/DL (5.7-8.2)
[2024-09-27 08:06] VITALS: BP 114/60; TEMP 97.4; O2SAT 97
== END 2024-09-27 13:29 | disposition home or self-care (01) | DRG 948 ==
LOC: M ED 15:31 → M ED INP 22:27 → M PCU 09-26 03:11
PROVIDERS: ADMIT Student in an Organized Health Care Education/Training Program; ATTEND Student in an Organized Health Care Education/Training Program
DX: R53.1 Weakness (principal); E11.9 Type 2 diabetes mellitus without complications; I10 Essential (primary) hypertension; E78.5 Hyperlipidemia, unspecified; G43.909 Migraine, unspecified, not intractable, without status migrainosus; K21.9 Gastro-esophageal reflux disease without esophagitis; N40.0 Benign prostatic hyperplasia without lower urinary tract symptoms; J44.9 Chronic obstructive pulmonary disease, unspecified; Z86.73 Personal history of transient ischemic attack (TIA), and cerebral infarction without residual deficits; G47.33 Obstructive sleep apnea (adult) (pediatric); M54.59 Other low back pain; Z79.899 Other long term (current) drug therapy; Z79.82 Long term (current) use of aspirin; Z91.030 Bee allergy status; Z91.018 Allergy to other foods; Z88.8 Allergy status to other drugs, medicaments and biological substances; Z88.0 Allergy status to penicillin

== ENCOUNTER → 2024-09-30 | Outpatient (CLI) | payer MEDICARE ==
[~2024-09-30] MED LIST changes: +GLUC500T53 PO; +SEMA2PEN SC
== END ==
LOC: M RAD 13:32
PROVIDERS: ATTEND Physician Assistant
DX: R29.898 Other symptoms and signs involving the musculoskeletal system (principal); M79.605 Pain in left leg

== ENCOUNTER 2024-10-02 00:27 | Emergency (ER) | payer MEDICARE ==
[~2024-10-02] VITALS: Ht 162.6 cm; Wt 113.6 kg
[2024-10-02] MEDS ORDERED: ISOVUE-370 76% 100ML VIAL As Ordered ONE (01:08)
[2024-10-02 01:23] LABS: BASO % 0.3 % (0.0-1.0); EOS # 0.2 10^3/uL (0.0-0.5); EOS % 1.7 % (0.0-3.0); HEMATOCRIT 39.3 % (42.0-52.0); HEMOGLOBIN 13.8 g/dl (13.5-17.5); LYMPH # 2.1 10^3/uL (1.5-5.0); LYMPH % 22.8 % (24.0-44.0); MEAN CORPUSCULAR HEMOGLOBIN 29.2 pg (27.0-33.0); MEAN CORPUSCULAR HGB CONC 35.1 g/dl (32.0-36.5); MEAN CORPUSCULAR VOLUME 83.1 fl (80.0-96.0); MONO # 0.8 10^3/uL (0.0-0.8); MONO % 9.1 % (2.0-8.0); NEUTROPHILS % 65.4 % (36.0-66.0); PLATELET COUNT, AUTOMATED 232 10^3/uL (150-450); RED BLOOD COUNT 4.73 10^6/uL (4.30-6.10); WHITE BLOOD COUNT 9.2 10^3/uL (4.0-10.0)
[2024-10-02 01:35] LABS: INR 0.96; PARTIAL THROMBOPLASTIN TIME 32.9 SECONDS (24.8-34.2); PROTHROMBIN TIME 13.1 SECONDS (12.5-14.5)
[2024-10-02 01:52] LABS: BLOOD UREA NITROGEN 16 MG/DL (9-23); CALCIUM LEVEL 8.8 MG/DL (8.5-10.1); CARBON DIOXIDE LEVEL 24 MMOL/L (20-31); CHLORIDE LEVEL 109 MMOL/L (98-107); CREATININE FOR GFR 0.94 MG/DL (0.70-1.30); GLOMERULAR FILTRATION RATE > 60.0 (>60); GLUCOSE, FASTING 125 MG/DL (60-100); POTASSIUM SERUM 3.2 MMOL/L (3.5-5.1); SODIUM LEVEL 143 MMOL/L (136-145)
[2024-10-02] MEDS: KETOROLAC 30 MG/ML 1ML VIAL IV ONE (02:33)
[2024-10-02] MEDS: NS (Normal Saline) 0.9% 1,000 ML IV ONE (02:35)
[2024-10-02] MEDS: MAG SULF 1GM/100ML (MAG RUN) 1 GM in IV 1 EA IV ONE (02:35)
[2024-10-02] MEDS: METOCLOPRAMIDE INJ 10MG/2ML VIAL IV ONE (02:37)
[2024-10-02] MEDS: POTASSIUM CHLORIDE 10% LIQ 20MEQ/15ML UDC PO ONE (02:40)
[2024-10-02 04:33] VITALS: BP 128/60; TEMP 96.8; O2SAT 97
== END 2024-10-02 04:35 | disposition home or self-care (01) ==
LOC: M ED 00:27 → EDBD 00:27 → M ED 04:35
DX: G43.909 Migraine, unspecified, not intractable, without status migrainosus (principal); Z86.79 Personal history of other diseases of the circulatory system; Z88.0 Allergy status to penicillin; Z88.8 Allergy status to other drugs, medicaments and biological substances; Z91.018 Allergy to other foods; Z91.030 Bee allergy status; Z79.899 Other long term (current) drug therapy; Z79.82 Long term (current) use of aspirin; Z79.02 Long term (current) use of antithrombotics/antiplatelets
CPT/HCPCS: 70450; 70496; 70498; 71045; 80047; 80048; 83735; 85025; 85610; 85730; 87486; 87581; 87633; 87798; 93005; 93041; 94760; 96365; 96366; 96375; 99285; J1100; J1885; J2765; J3475; Q9967

== ENCOUNTER → 2024-10-13 | Outpatient (REF) | payer MEDICARE ==
[2024-10-13 14:44] LABS: BLOOD UREA NITROGEN 17 MG/DL (9-23); CALCIUM LEVEL 9.2 MG/DL (8.5-10.1); CARBON DIOXIDE LEVEL 26 MMOL/L (20-31); CHLORIDE LEVEL 107 MMOL/L (98-107); CREATININE FOR GFR 0.96 MG/DL (0.70-1.30); GLOMERULAR FILTRATION RATE > 60.0 (>60); GLUCOSE, FASTING 98 MG/DL (60-100); POTASSIUM SERUM 3.9 MMOL/L (3.5-5.1); SODIUM LEVEL 144 MMOL/L (136-145)
== END ==
LOC: M SFHCADAM 10:29
PROVIDERS: ATTEND Physician Assistant
DX: I63.89 Other cerebral infarction (principal); E66.01 Morbid (severe) obesity due to excess calories; G43.009 Migraine without aura, not intractable, without status migrainosus; E11.9 Type 2 diabetes mellitus without complications; K21.9 Gastro-esophageal reflux disease without esophagitis; K59.00 Constipation, unspecified; E87.6 Hypokalemia

== ENCOUNTER 2024-12-13 19:10 | Emergency (ER) | payer MEDICARE, OTHER, SELFPAY ==
[~2024-12-13] VITALS: Ht 167.6 cm; Wt 116.3 kg
[2024-12-13] MEDS: ACETAMINOPHEN 500 MG TAB PO ONE (20:02)
[2024-12-13] MEDS: LIDOCAINE 5% (LIDODERM) PATCH TD ONE (21:28)
[2024-12-13] MEDS: KETOROLAC 60MG 2ML VIAL IM ONE (21:52)
[2024-12-13] MEDS ORDERED: LIDO5DIS41 TOP (21:54)
[2024-12-13 21:59] VITALS: BP 133/73; TEMP 97; O2SAT 95
== END 2024-12-13 22:19 | disposition home or self-care (01) ==
LOC: M ED 19:10
DX: S13.4XXA Sprain of ligaments of cervical spine, initial encounter (principal); V49.40XA Driver injured in collision with unspecified motor vehicles in traffic accident, initial encounter; E11.9 Type 2 diabetes mellitus without complications; I10 Essential (primary) hypertension; J44.9 Chronic obstructive pulmonary disease, unspecified; N40.0 Benign prostatic hyperplasia without lower urinary tract symptoms; G43.909 Migraine, unspecified, not intractable, without status migrainosus; E78.5 Hyperlipidemia, unspecified; Z88.8 Allergy status to other drugs, medicaments and biological substances; Z91.030 Bee allergy status; Z88.0 Allergy status to penicillin; Z91.018 Allergy to other foods; Y92.410 Unspecified street and highway as the place of occurrence of the external cause; Y93.89 Activity, other specified; Y99.9 Unspecified external cause status; Z79.82 Long term (current) use of aspirin; Z79.02 Long term (current) use of antithrombotics/antiplatelets; Z79.899 Other long term (current) drug therapy
CPT/HCPCS: 70450; 72125; 96372; 99283; J1885

== ENCOUNTER → 2025-04-12 | Outpatient (CLI) | payer MEDICARE ==
[~2025-04-12] MED LIST changes: -FLOM0.4C39 PO; +LIDO1ADH93 TOP; +LIFI1DRO4 OU; +TAMS-18 PO; -XIID5DRO OU
== END ==
LOC: M RAD 07:08
PROVIDERS: ATTEND Physician Assistant
DX: M19.072 Primary osteoarthritis, left ankle and foot (principal)

== ENCOUNTER → 2025-08-02 | Outpatient (REF) | payer MEDICARE ==
[~2025-08-02] MED LIST changes: -EZET10TA21 PO; +EZET10TA57 PO; -IBUP-1022 PO; +IBUP600T42 PO
[2025-08-02 13:52] LABS: BASO # 0.0 10^3/uL (0.0-0.2); BASO % 0.4 % (0.0-1.0); EOS # 0.2 10^3/uL (0.0-0.5); EOS % 2.8 % (0.0-3.0); LYMPH # 2.5 10^3/uL (1.5-5.0); LYMPH % 35.7 % (24.0-44.0); MONO # 0.6 10^3/uL (0.0-0.8); MONO % 8.2 % (2.0-8.0); NEUTROPHILS # 3.6 10^3/uL (1.5-8.5); NEUTROPHILS % 52.5 % (36.0-66.0); PLATELET COUNT, AUTOMATED 202 10^3/uL (150-450)
[2025-08-02 14:04] LABS: ESTIMATED AVERAGE GLUCOSE 111.0 MG/DL (60-110)
[2025-08-02 14:25] LABS: CREATININE, URINE 206.1 MG/DL
[2025-08-02 14:26] LABS: ALT/SGPT 62 U/L (7.0-40); AST/SGOT 29 U/L (<34); CALCIUM LEVEL 9.3 MG/DL (8.5-10.1); CARBON DIOXIDE LEVEL 27 MMOL/L (20-31); CHLORIDE LEVEL 104 MMOL/L (98-107); CREATININE FOR GFR 0.98 MG/DL (0.70-1.30); GLOMERULAR FILTRATION RATE > 90.0 (>60); MALB URINE SIEMENS 5.0 MG/L; MAU/CREAT RATIO 2.4 MCG/MG (0.0-30.0); POTASSIUM SERUM 4.1 MMOL/L (3.5-5.1); SODIUM LEVEL 141 MMOL/L (136-145)
== END ==
LOC: M SFHCADAM 09:11
PROVIDERS: ATTEND Physician Assistant
DX: K75.81 Nonalcoholic steatohepatitis (NASH) (principal); E66.01 Morbid (severe) obesity due to excess calories; Z68.41 Body mass index [BMI] 40.0-44.9, adult; I11.9 Hypertensive heart disease without heart failure; G47.33 Obstructive sleep apnea (adult) (pediatric); E11.9 Type 2 diabetes mellitus without complications